=== PATIENT | male | born 1940 | race Caucasian/White ===

== ENCOUNTER → 2019-05-08 | Outpatient (CLI) | payer MEDICARE, BC ==
[~2019-05-08] MED LIST: AMIO200T4; APIX5TAB; DULO30CA49; FURO80TA3; LEVE500T6; METF-397; MTP100TCR
[2019-05-08 12:43] LABS: BASOPHILS % (AUTO) 0 % (0-10); EOSINOPHILS % (AUTO) 0 % (0-10); HEMATOCRIT 26 % (40-54); HEMOGLOBIN 8.3 G/DL (13.3-17.7); LYMPHOCYTES # (AUTO) 0.6 X 10^3 (1.0-4.0); LYMPHOCYTES % (AUTO) 7 % (12-44); MEAN CORPUSCULAR HEMOGLOBIN 22 PG (25-34); MEAN CORPUSCULAR HGB CONC 32 G/DL (32-36); MEAN CORPUSCULAR VOLUME 70 FL (80-99); MEAN PLATELET VOLUME 12.2 FL (7.4-10.4); MONOCYTES # (AUTO) 0.5 X 10^3 (0.0-1.0); MONOCYTES % (AUTO) 5 % (0-12); NEUTROPHILS # (AUTO) 7.7 X 10^3 (1.8-7.8); NEUTROPHILS % (AUTO) 88 % (42-75); PLATELET COUNT 285 10^3/uL (130-400); RED CELL DISTRIBUTION WIDTH 21.3 % (10.0-14.5); WHITE BLOOD COUNT 8.7 10^3/uL (4.3-11.0)
[2019-05-08 13:03] LABS: ALBUMIN 3.6 GM/DL (3.2-4.5); BILIRUBIN,TOTAL 2.4 MG/DL (0.1-1.0); CALCIUM 9.7 MG/DL (8.5-10.1); CREATININE SERUM 2.39 MG/DL (0.60-1.30); POTASSIUM 4.5 MMOL/L (3.6-5.0); TOTAL PROTEIN 7.2 GM/DL (6.4-8.2)
[2019-05-08 13:17] LABS: ANISOCYTOSIS MODERATE; HYPOCHROMASIA MARKED; LYMPHOCYTES % (MANUAL) 3 %; MONOCYTES % (MANUAL) 2 %; NEUTROPHILS % (MANUAL) 95 %; POLYCHROMASIA MODERATE; TARGET CELLS MODERATE
--- NOTE | 2019-05-08 13:33 | Diagnostic Imaging Report ---
PROCEDURE: CT head and CT cervical spine without contrast. TECHNIQUE: Multiple contiguous axial images were obtained through the brain and cervical spine without the use of intravenous contrast. Sagittal and coronal reformations through the cervical spine were then performed. Auto Exposure Controls were utilized during the CT exam to meet ALARA standards for radiation dose reduction. INDICATION: Fell, head and neck pain. COMPARISON: There are no prior studies available for comparison. CT HEAD: There is no mass, shift of the midline, or hemorrhage to suggest an acute intracranial abnormality. The normal tentorial blush is evident. The ventricles are not abnormally dilated. There is cortical atrophy present. The degree of atrophy is consistent with the patient's age. There is edema/inflammation and probable hematoma formation in the scalp overlying the left parietal bone just superior to the level of the lateral ventricles. This area measures approximately 0.9 x 2.8 cm. There is no sign of a skull fracture in this area. No other acute bony abnormality is noted. The orbits and sinuses were not visualized in their entirety. Where visualized, there is no acute abnormality. IMPRESSION: 1. There is soft tissue edema and hematoma formation in the scalp overlying the left parietal bone. There is no sign of a skull fracture nor is there any evidence for an acute intracranial abnormality. 2. By history, the patient is anticoagulated. If the patient's symptoms of headache persist, then a short-term (24-hour) follow-up CT head exam would be recommended for further evaluation. CT CERVICAL SPINE: The reconstructed sagittal images show straightening of the cervical spine. This may be secondary to muscle spasm and/or positioning. There is no fracture or acute bony abnormality identified. There is moderate degenerative disc and bony disease in the lower cervical spine. There is no sign of a high-grade central stenosis. There is no paraspinal mass identified. However, in the right neck along the lateral aspect of the neck, there is an asymmetric soft tissue density. This finding measures 2.3 x 3.6 x 6.8 cm in maximum transverse, AP, and longitudinal dimensions. The soft tissue density extends from the level of the epiglottis to the right supraclavicular region. The distal-most portion of the soft tissue density is near the dialysis catheter entry site in the right supraclavicular region. The dialysis catheters seems to be in good position. This soft tissue density could be secondary to hematoma formation. It would be unlikely that this is a neoplastic mass. Clinical follow-up is recommended. The lung apices are clear. IMPRESSION: 1. There is no evidence for an acute bony abnormality of the cervical spine. 2. The soft tissue density in the right neck is of uncertain etiology but suspicious for hematoma. The density is in close proximity to the entry site of the dialysis catheter on the right. The catheter itself seems to be in good position. Clinical follow-up is recommended. 3. These results were discussed with Kaylah Leggett APRN. Dictated by: Dictated on workstation # [id number]
== END ==
LOC: RAD 12:11
PROVIDERS: ATTEND Nurse Practitioner Family
DX: S00.03XA Contusion of scalp, initial encounter (principal); C61 Malignant neoplasm of prostate; I50.9 Heart failure, unspecified; N19 Unspecified kidney failure; W19.XXXA Unspecified fall, initial encounter; Z79.01 Long term (current) use of anticoagulants; Z95.828 Presence of other vascular implants and grafts
CPT/HCPCS: 36415; 70450; 72125; 80053; 84153; 85007; 85027

== ENCOUNTER 2019-05-10 09:48 | Emergency (ER) | payer MEDICARE, BC ==
[~2019-05-10] VITALS: Ht 175 cm; Wt 71.8 kg
[2019-05-10] MEDS ORDERED: fentaNYL INJECTION 100 MCG/2 ML AMP IVP ONE (10:30)
[2019-05-10] MEDS ORDERED: MTP100TCR (10:32)
[2019-05-10] MEDS ORDERED: FURO80TA3 (10:32)
[2019-05-10] MEDS ORDERED: LEVE500T6 (10:32)
[2019-05-10] MEDS ORDERED: DULO30CA49 (10:32)
[2019-05-10] MEDS ORDERED: APIX5TAB (10:32)
[2019-05-10] MEDS ORDERED: METF-397 (10:32)
[2019-05-10] MEDS ORDERED: AMIO200T4 (10:32)
[2019-05-10 10:45] LABS: BASOPHILS % (AUTO) 0 % (0-10); EOSINOPHILS % (AUTO) 0 % (0-10); HEMATOCRIT 25 % (40-54); LYMPHOCYTES # (AUTO) 0.5 X 10^3 (1.0-4.0); LYMPHOCYTES % (AUTO) 8 % (12-44); MEAN CORPUSCULAR HGB CONC 32 G/DL (32-36); MEAN CORPUSCULAR VOLUME 71 FL (80-99); MEAN PLATELET VOLUME 10.7 FL (7.4-10.4); MONOCYTES # (AUTO) 0.5 X 10^3 (0.0-1.0); MONOCYTES % (AUTO) 7 % (0-12); NEUTROPHILS # (AUTO) 5.6 X 10^3 (1.8-7.8); NEUTROPHILS % (AUTO) 85 % (42-75); PLATELET COUNT 253 10^3/uL (130-400); RED CELL DISTRIBUTION WIDTH 21.5 % (10.0-14.5); WHITE BLOOD COUNT 6.6 10^3/uL (4.3-11.0)
[2019-05-10 10:46] LABS: MEAN CORPUSCULAR HEMOGLOBIN 22 PG (25-34)
[2019-05-10 10:56] LABS: INR 2.1 (0.8-1.4); PROTHROMBIN TIME PATIENT 24.2 SEC (12.2-14.7)
[2019-05-10 11:04] LABS: ALBUMIN 3.5 GM/DL (3.2-4.5); BILIRUBIN,TOTAL 2.2 MG/DL (0.1-1.0); CALCIUM 9.5 MG/DL (8.5-10.1); CREATININE SERUM 2.4 MG/DL (0.60-1.30); MAGNESIUM 2.1 MG/DL (1.6-2.4); TOTAL PROTEIN 7.1 GM/DL (6.4-8.2)
[2019-05-10 11:11] LABS: BILIRUBIN,URINE NEGATIVE (NEGATIVE); CLARITY,URINE SL CLOUDY; COLOR,URINE YELLOW; GLUCOSE, URINE (UA) NEGATIVE (NEGATIVE); KETONES,URINE NEGATIVE (NEGATIVE); LEUKOCYTE ESTERASE ,URINE 1+ (NEGATIVE); NITRITE,URINE NEGATIVE (NEGATIVE); PROTEIN,URINE NEGATIVE (NEGATIVE)
--- NOTE | 2019-05-10 11:20 | NUR ---
PT REQUEST WALKER CATH TO BE REMOVED DUE TO DISCOMFORT. REPORTS HE WOULD PREFER TO CONTINUE TO SELF CATH. DR ROBERT. FOLY REMOVED. APROX 100 ML OF DARK YELLOW URINE COLLECTED.
[2019-05-10 11:21] LABS: BACTERIA,URINE LARGE /HPF; WBC,URINE 25-50 /HPF
--- NOTE | 2019-05-10 11:25 | Diagnostic Imaging Report ---
INDICATION: Leg edema. TECHNIQUE: Single view chest 11:07 a.m. CORRELATION STUDY: None FINDINGS: Right IJ dialysis catheter tip is over the right atrium. Left-sided AICD is present. There is cardiac enlargement with presence of pulmonary vascular congestion and perihilar edema. Prominent interstitial markings also favor probable edema. No consolidating infiltrate. Trace effusions. IMPRESSION: 1. Findings of congestive heart failure. Dictated by: Dictated on workstation # [id number]
[2019-05-10] MEDS ORDERED: LIDOCAINE 2% VISCOUS 15 ML UDC MM ONE (11:30)
[2019-05-10] MEDS ORDERED: cefTRIAXone FOR IV USE 1,000 MG in WATER (STERILE) FOR INJECTION 10 ML IV ONE (11:30)
[2019-05-10] MEDS ORDERED: FUROSEMIDE 40 MG/4 ML INJ (LASIX) IVP ONE (11:30)
--- NOTE | 2019-05-10 11:33 | ED General ---
General Chief Complaint: Lower Extremity Stated Complaint: PAIN IN BOTH LEGS Nursing Triage Note: PT PRESENTS TO ED IN FROM [facility] ACCOMPANIED BY DAUGHTER WITH COMPLAINTS OF INCREASED LEG SWELLING, AND BILATERAL THIGH PAIN. PT RECENTLY MOVED TO [place] TO [place] CLOSER TO HIS FAMILY. PT STOPPED DIALYSIS 2 WEEKS AGO AND HIS DR INCREASED HIS LASIX TO 80 MG WHICH HE HAS BEEN TAKING FOR 1 WEEK TO HELP WITH THE SWELLING. PT HAD HIS LEGS WRAPPED FOR SPECIALTY BOOTS YESTERDAY AND SINCE HIS THIGH PAIN HAS INCREASED. Nursing Sepsis Screen: No Definite Risk Source of Information: Patient, Family Exam Limitations: No Limitations History of Present Illness Date Seen by Provider: May 10, 2019 Time Seen by Provider: 10:20 Initial Comments This 78-year-old gentleman presents to the emergency room with complaints of bilateral leg pain, especially in the thighs. He had wraps placed by home health yesterday and pain has been escalating since then. Wraps were placed because he has significant lower extremity edema secondary to congestive heart failure and chronic kidney disease. He had weeping and ulcers develop as a result. He had been on dialysis while living in [place]. Dialysis was continued in [facility] after he had been admitted at [facility]. Dialysis was stopped about 3 weeks ago. He came to the [place] area to live with his family. He also had a recent fall and had a CT of the head and cervical spine performed on which was negative for acute injury. He appears short of breath with shallow respirations. There is erythema of the lower extremities, greater on the left, just proximal to his wraps. He is anticoagulated on Eliquis because of atrial fibrillation. Patient also reports hematuria with his straight cathetering over the past week. His Lasix dose was recently increased from 40 mg to 80 mg about a week ago, but he is having increased swelling despite this change. Allergies and Home Medications Allergies Coded Allergies: No Known Drug Allergies (Unverified , 05/10/19) Patient Home Medication List Home Medication List Reviewed: Yes Review of Systems Review of Systems Constitutional: no symptoms reported EENTM: no symptoms reported Respiratory: see HPI Cardiovascular: see HPI Gastrointestinal: no symptoms reported Genitourinary: see HPI Musculoskeletal: see HPI Skin: see HPI Psychiatric/Neurological: No Symptoms Reported Hematologic/Lymphatic: No Symptoms Reported Immunological/Allergic: no symptoms reported Past Qlbbirt-Hzyhlj-Coyzzi Hx Past Med/Social Hx: Reviewed Nursing Past Med/Soc Hx Patient Social History Alcohol Use: Past History Recreational Drug Use: No Smoking Status: Former Smoker Former Smoker, Quit: Apr 30, 1967 Recent Foreign Travel: No Contact w/Someone Who Travel: No Recent Infectious Disease Expo: No Recent Hopitalizations: Yes (admission at [facility] for fluid retention) Physical Abuse: No Sexual Abuse: No Mistreated: No Fear: No Past Medical History Surgeries: Yes Appendectomy, CABG, Coronary Stent, Dialysis, Nose Respiratory: Yes (CHF) Cardiac: Yes Atrial Fibrillation, Chronic Edema/Swelling, Coronary Artery Disease, High Cholesterol Neurological: Yes Neuropathy, Seizure Disorder Genitourinary: Yes Prostate Problems, Renal Failure, Dialysis Gastrointestinal: No Musculoskeletal: No Endocrine: Yes Diabetes, Non-Insulin dep HEENT: No Cancer: Yes Prostate What Type of Treatment Did You: Other Psychosocial: No Integumentary: No Physical Exam Vital Signs Vital Signs - First Documented 05/10/19 10:05 Temp 35.9 Pulse 74 Resp 20 B/P (MAP) 104/63 (77) Pulse Ox 100 Capillary Refill : Less Than 3 Seconds Height, Weight, BMI Height: '" Weight: lbs. oz. kg; 23.00 BMI Method: General Appearance: No Apparent Distress, WD/WN HEENT: PERRL/EOMI, Normal ENT Inspection Neck: Normal Inspection Respiratory: No Accessory Muscle Use, No Respiratory Distress, Crackles (bilateral bases), Decreased Breath Sounds, Other (decreased air movement) Cardiovascular: No Edema, No Murmur, Systolic Murmur Gastrointestinal: Normal Bowel Sounds, Non Tender, Soft Extremity: Other (marked edema of the legs up to the hips bilaterally. There is erythema noted especially distal to the left knee. He has a few shallow ulcerations on the anterior lower legs. Pedal pulses are not well palpated. 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 II-XII Norm as Tested Skin: Warm/Dry, Other (see above) Progress/Results/Core Measures Suspected Sepsis Recent Fever Within 48 Hours: No Infection Criteria Present: None New/Unexplained Altered Menta: No Sepsis Screen: No Definite Risk SIRS Temperature: Pulse: 74 Respiratory Rate: 20 Laboratory Tests 05/10/19 10:37: White Blood Count 6.6 Blood Pressure 104 /63 Mean: 77 Laboratory Tests 05/10/19 10:37: Creatinine 2.40H, INR Comment 2.1H, Platelet Count 253, Total Bilirubin 2.2H Results/Orders Lab Results Laboratory Tests Test 05/10/19 10:37 05/10/19 11:01 Range/Units White Blood Count 6.6 4.3-11.0 10^3/uL Red Blood Count 3.56 L 4.35-5.85 10^6/uL Hemoglobin 8.0 L 13.3-17.7 G/DL Hematocrit 25 L 40-54 % Mean Corpuscular Volume 71 L 80-99 FL Mean Corpuscular Hemoglobin 22 L 25-34 PG Mean Corpuscular Hemoglobin Concent 32 32-36 G/DL Red Cell Distribution Width 21.5 H 10.0-14.5 % Platelet Count 253 130-400 10^3/uL Mean Platelet Volume 10.7 H 7.4-10.4 FL Neutrophils (%) (Auto) 85 H 42-75 % Lymphocytes (%) (Auto) 8 L 12-44 % Monocytes (%) (Auto) 7 0-12 % Eosinophils (%) (Auto) 0 0-10 % Basophils (%) (Auto) 0 0-10 % Neutrophils # (Auto) 5.6 1.8-7.8 X 10^3 Lymphocytes # (Auto) 0.5 L 1.0-4.0 X 10^3 Monocytes # (Auto) 0.5 0.0-1.0 X 10^3 Eosinophils # (Auto) 0.0 0.0-0.3 10^3/uL Basophils # (Auto) 0.0 0.0-0.1 10^3/uL Prothrombin Time 24.2 H 12.2-14.7 SEC INR Comment 2.1 H 0.8-1.4 Activated Partial Thromboplast Time 59 H 24-35 SEC Sodium Level 136 135-145 MMOL/L Potassium Level 4.0 3.6-5.0 MMOL/L Chloride Level 93 L 98-107 MMOL/L Carbon Dioxide Level 27 21-32 MMOL/L Anion Gap 16 H 5-14 MMOL/L Blood Urea Nitrogen 73 H 7-18 MG/DL Creatinine 2.40 H 0.60-1.30 MG/DL Estimat Glomerular Filtration Rate 26 BUN/Creatinine Ratio 30 Glucose Level 144 H 70-105 MG/DL Calcium Level 9.5 8.5-10.1 MG/DL Corrected Calcium 9.9 8.5-10.1 MG/DL Magnesium Level 2.1 1.6-2.4 MG/DL Total Bilirubin 2.2 H 0.1-1.0 MG/DL Aspartate Amino Transf (AST/SGOT) 38 H 5-34 U/L Alanine Aminotransferase (ALT/SGPT) 36 0-55 U/L Alkaline Phosphatase 167 H 40-136 U/L C-Reactive Protein High Sensitivity 10.79 H 0.00-0.50 MG/DL B-Type Natriuretic Peptide 2682.9 H <100.0 PG/ML Total Protein 7.1 6.4-8.2 GM/DL Albumin 3.5 3.2-4.5 GM/DL Urine Color YELLOW Urine Clarity SL CLOUDY Urine pH 6.0 5-9 Urine Specific [place] 1.010 L 1.016-1.022 Urine Protein NEGATIVE NEGATIVE Urine Glucose (UA) NEGATIVE NEGATIVE Urine Ketones NEGATIVE NEGATIVE Urine Nitrite NEGATIVE NEGATIVE Urine Bilirubin NEGATIVE NEGATIVE Urine Urobilinogen 4.0 < = 1.0 MG/DL Urine Leukocyte Esterase 1+ H NEGATIVE Urine RBC (Auto) 3+ H NEGATIVE Urine RBC 5-10 H /HPF Urine WBC 25-50 H /HPF Urine Crystals NONE /LPF Urine Bacteria LARGE H /HPF Urine Casts NONE /LPF Urine Mucus NEGATIVE /LPF Urine Culture Indicated YES My Orders Orders - MARLA LOZA MD BNP (05/10/19 10:30) Cbc With Automated Diff (05/10/19 10:30) Comprehensive Metabolic Panel (05/10/19 10:30) Hs C Reactive Protein (05/10/19 10:30) Magnesium (05/10/19 10:30) Protime With Inr (05/10/19 10:30) Partial Thromboplastin Time (05/10/19 10:30) Ua Culture If Indicated (05/10/19 10:30) Ed Iv/Invasive Line Start (05/10/19 10:30) Chest 1 View, Ap/Pa Only (05/10/19 10:30) Fentanyl Injection (Sublimaze Injection (05/10/19 10:30) Varner Cath (05/10/19 10:46) Lidocaine 2% Viscous 15 Ml (Xylocaine Vi (05/10/19 11:30) Urine Culture (05/10/19 11:01) Ceftriaxone For Iv Use (Rocephin For I (05/10/19 11:30) Furosemide Injection (Lasix Injection) (05/10/19 11:30) Lorazepam Injection (Ativan Injection) (05/10/19 12:00) Medications Given in ED Current Medications Medications Dose Ordered Sig/Danielle Route Start Time Stop Time Status Last Admin Dose Admin Ceftriaxone Sodium 1000 mg/ Sterile Water 10 ml @ 200 mls/hr ONCE ONCE IV 05/10/19 11:30 05/10/19 11:32 DC 05/10/19 11:49 200 MLS/HR Fentanyl Citrate 50 mcg ONCE ONCE IVP 05/10/19 10:30 05/10/19 10:32 DC 05/10/19 10:41 50 MCG Furosemide 80 mg ONCE ONCE IVP 05/10/19 11:30 05/10/19 11:31 DC 05/10/19 11:50 80 MG Lorazepam 0.25 mg ONCE ONCE IVP 05/10/19 12:00 05/10/19 12:01 DC 05/10/19 12:10 0.25 MG Vital Signs/I&O 05/10/19 05/10/19 10:05 14:53 Temp 35.9 Pulse 74 77 Resp 20 18 B/P (MAP) 104/63 (77) 113/72 Pulse Ox 100 96 Capillary Refill : Less Than 3 Seconds Blood Pressure Mean: 77 Progress Note #1: Time: 12:44 Progress Note Patient has notable signs of heart failure including elevated BNP, congestion on chest x-ray, and marked lower extremity edema. Lasix 80 mg has been given for initial treatment. A Varner catheter was placed but patient did not tolerate the catheter due to pain. He insisted to be removed. He would rather straight catheter. Urinalysis suggested urinary tract infection. Rocephin is being given for initial treatment. I also suspect he has some cellulitis of the lower extremities. Cellulitis is also appropriate for treatment of cellulitis. Patient developed some significant anxiety and requested something to help calm him. Ativan 0.25 mg IV was administered which eliminated his anxiety. I discussed options with the patient and his family. Although we could admit to [facility] in [place], I feel it would be more appropriate for him to be admitted at a facility with nephrology services and dialysis if necessary given his recent history of dialysis and the delicate balance between heart failure and renal failure in his present state. If admitted at [facility], there would be high likelihood he would eventually need transfer to a tertiary care facility. After this conversation, patient, family, and I all agree he would be best served at a tertiary care facility. They've had good experiences with [facility] in [place] and would like to be transferred there. Progress Note #2: Time: 13:34 Progress Note After multiple self catheter bladder evacuations he eliminated about 300 mL of urine. Progress Note #3: Progress Note Patient voided a proximally 700 mL prior to dismissal. Diagnostic Imaging Diagonstic Imaging: Xray Plain Films/CT/US/NM/MRI: chest Comments Chest x-ray viewed by me and report reviewed. See report below: NAME: MARGARITO CHANDRA [facility] REC#: [id number] PT STATUS: REG ER : 1940 PHYSICIAN: MARLA LOZA MD ADMIT DATE: 05/10/19/ER Draft Date of Exam:05/10/19 CHEST 1 VIEW, AP/PA ONLY INDICATION: Leg edema. TECHNIQUE: Single view chest 11:07 a.m. CORRELATION STUDY: None FINDINGS: Right IJ dialysis catheter tip is over the right atrium. Left-sided AICD is present. There is cardiac enlargement with presence of pulmonary vascular congestion and perihilar edema. Prominent interstitial markings also favor probable edema. No consolidating infiltrate. Trace effusions. IMPRESSION: 1. Findings of congestive heart failure. Dictated on workstation # [id number] Dict: 05/10/19 1122 Trans: 05/10/19 1124 [facility] [id number] Interpreted by: MELANIA GUEVARA DO Departure Impression Primary Impression: Acute on chronic congestive heart failure Qualified Codes: I50.9 - Heart failure, unspecified Additional Impressions: Chronic kidney disease Qualified Codes: N18.9 - Chronic kidney disease, unspecified Urinary tract infection Qualified Codes: N39.0 - Urinary tract infection, site not specified; R31.9 - Hematuria, unspecified Cellulitis Qualified Codes: L03.119 - Cellulitis of unspecified part of limb Anemia Qualified Codes: D64.9 - Anemia, unspecified Anxiety Disposition: 02 XFER SHT-TRM HOSP Condition: Improved Transfer Transfer Reason: Exceeds level of care Time Spoke to Accepting Phy: 12:43 Transfer Progress Notes Transfer graciously accepted by Dr. Hartley at [facility]. Transfer Time: 14:56 Transfer Facility: [facility] Method of Transfer: EMS Departure-Patient Inst. Referrals: RASHMI MURDOCK MD (PCP/Family) Primary Care Physician Copy Copies To 1: RASHMI MURDOCK MD, JOSHUA T MD May 10, 2019 11:33
--- NOTE | 2019-05-10 11:40 | NUR ---
PT SELF STRAIGHT CATHS AT THIS TIME. APROX 35 ML OF RUDY COLORED URINE COLLECTED.
[2019-05-10] MEDS ORDERED: LORazepam INJ 2 MG/ML (ATIVAN) VIAL IVP ONE (12:00)
--- NOTE | 2019-05-10 12:45 | NUR ---
PT SELF STRAIGHT CATHED AT THIS TIME. 50 ML OF RUDY COLORED URINE COLLECTED.
--- NOTE | 2019-05-10 13:21 | NUR ---
PT SELF STRAIGHT CATHED AT THIS TIME. 235 ML OF RUDY COLORED URINE COLLECTED.
--- NOTE | 2019-05-10 14:43 | NUR ---
PT SELF CATHED AT THIS TIME. 280ML OF DARK YELLOW URINE COLLECTED.
[2019-05-10 14:53] VITALS: BP 113/72
== END 2019-05-10 14:56 | disposition short-term general hospital (02) ==
LOC: EDUNIT# 09:48 → ER 09:49
DX: I50.9 Heart failure, unspecified (principal); E11.22 Type 2 diabetes mellitus with diabetic chronic kidney disease; N18.9 Chronic kidney disease, unspecified; N39.0 Urinary tract infection, site not specified; L03.116 Cellulitis of left lower limb; D64.9 Anemia, unspecified; F41.9 Anxiety disorder, unspecified; I48.91 Unspecified atrial fibrillation; Z79.01 Long term (current) use of anticoagulants; Z87.891 Personal history of nicotine dependence; Z90.49 Acquired absence of other specified parts of digestive tract; Z95.5 Presence of coronary angioplasty implant and graft; Z95.1 Presence of aortocoronary bypass graft; Z99.2 Dependence on renal dialysis; Z85.46 Personal history of malignant neoplasm of prostate
CPT/HCPCS: 36415; 51702; 71045; 80053; 81000; 83735; 83880; 85025; 85610; 85730; 86141; 87077; 87088; 87184; 87186

== ENCOUNTER 2019-06-12 08:00 | Outpatient (RCR) | payer MEDICARE, BC ==
[2019-06-11 16:07] LABS: HEMOGLOBIN 6.6 G/DL (13.3-17.7)
[2019-06-12] VITALS (10 sets, daily range): BP systolic 72–95; BP diastolic 46–59
[~2019-06-12] VITALS: Ht 154 cm; Wt 71.8 kg
[2019-06-12] MEDS ORDERED: ACETAMINOPHEN 500 MG TAB (TYLENOL) PO ONE (08:15)
[2019-06-12] MEDS ORDERED: diphenhydrAMINE 50 MG/ML INJ (BENADRYL) IV ONE (08:15)
[2019-06-12] MEDS ORDERED: FUROSEMIDE 40 MG/4 ML INJ (LASIX) IV NR (08:15)
[2019-06-12] MEDS ORDERED: NS IV 500 ML 500 ML IV NR (08:15)
--- NOTE | 2019-06-12 09:20 | NUR ---
PT. WAS WALKING ALONGSIDE THIS NURSE TO GO USE THE RESTROOM WHEN HIS KNEES BUCKLED AND HE WENT DOWN ON HIS SIDE GENTLY TO THE FLOOR ON THE SIDE OF HIS LEGS & HIP. THIS NURSE ALONG WITH OTHERS GOT THE PT. BACK UP AND INTO A WHEELCHAIR AND PROCEEDED TO TAKE HIM BACK TO HIS ROOM WHERE THIS NURSE DID A SKIN ASSESSMENT AND VITALS. HIS DAUGHTERS WERE PRESENT SO NO PHONE CALLS WERE NECESSARY TO FAMILY. DR. MURDOCK'S OFFICE WILL BE NOTIFIED.
--- NOTE | 2019-06-12 10:00 | NUR ---
DR. MURDOCK'S OFFICE NOTIFIED OF PT.'S FALL WELL PT.'S BLOOD IN URINE AND THAT PT. WAS TAKEN OFF HIS ELIQUIS OF YESTERDAY, SO HE DIDN'T TAKE IT THIS AM, TALKED TO CAROLINE CARDOZO. CAS STATED SHE WILL SEND DR. DEVI'S OFFICE AN UPDATE ABOUT PT.'S URINE BEING LIU RED. PT.'S VITALS ARE : 36.0 70 18 98/53 100% ON 3L N/C, PT. STATES HE FEELS MUCH BETTER, FIRST UNIT OF BLOOD HAS BEEN GOING FOR ABOUT 30 MIN. NOW.
[2019-06-12 15:02] LABS: HEMOGLOBIN 6.9 G/DL (13.3-17.7)
[2019-06-12 15:13] LABS: HEMOGLOBIN 7.5 G/DL (13.3-17.7)
[2019-06-12] MEDS ORDERED: FUROSEMIDE 40 MG/4 ML INJ (LASIX) IVP ONE ×2 (16:15→17:15)
--- NOTE | 2019-06-12 16:55 | NUR ---
TRANSPORTED PATIENT TO [address] [place] [address] VIA WHEELCHAIR, ACCOMPANIED BY PATIENT'S DAUGHTER AND STAFF. BEDSIDE REPORT GIVEN TO VADIM RN AND RANDOLPH WONG.
--- NOTE | 2019-06-12 16:58 | NUR ---
pt arrived to floor with family and RN via wheelchair. 3rd unit PRBC's infusing, pt denies needs at this time, will continue to monitor
[2019-06-12] MEDS ORDERED: NS IV 500 ML 500 ML IV ONE (17:15)
--- NOTE | 2019-06-12 17:56 | NUR ---
PT TOLERATING INFUSING WITHOUT DIFFICULTY, WILL CONTINUE TO MONITOR
--- NOTE | 2019-06-12 18:22 | NUR ---
UNIT OF PRBC'S COMPLETE
[2019-06-12 18:28] LABS: HEMOGLOBIN 8.6 G/DL (13.3-17.7)
--- NOTE | 2019-06-12 18:35 | NUR ---
H&H RESULTS GIVEN TO DR MURDOCK VIA TELPHONE
== END 2019-06-12 21:00 | disposition home or self-care (01) ==
LOC: LAB 08:00 → 4TH 18:13 → LAB 21:00
PROVIDERS: ATTEND Nurse Practitioner Family
DX: D64.9 Anemia, unspecified (principal)
CPT/HCPCS: 36415; 36430; 85014; 85018; 86850; 86900; 86901; 86920

== ENCOUNTER → 2019-06-13 | Outpatient (CLI) | payer MEDICARE, BC ==
[2019-06-13 11:50] LABS: HEMOGLOBIN 8.3 G/DL (13.3-17.7)
== END ==
LOC: LAB 11:22
PROVIDERS: ATTEND Nurse Practitioner Family
DX: Z01.89 Encounter for other specified special examinations (principal)
CPT/HCPCS: 36415; 85014; 85018

== ENCOUNTER → 2019-06-13 | Outpatient (CLI) | payer MEDICARE, BC ==
--- NOTE | 2019-06-13 12:33 | Diagnostic Imaging Report ---
PROCEDURE: CT abdomen and pelvis without contrast. TECHNIQUE: Multiple contiguous axial images were obtained through the abdomen and pelvis without the use of intravenous contrast. Auto Exposure Controls were utilized during the CT exam to meet ALARA standards for radiation dose reduction. INDICATION: Prostate cancer, followup. No prior studies are available for comparison. The lung bases are clear. No discrete liver mass is detected. Gallbladder surgically absent. No biliary duct dilatation is seen. Pancreas and spleen are unremarkable. No adrenal mass is detected. Right kidney contains a low density in the upper pole measuring 2.3 cm, likely a cyst. No calculi or hydronephrosis is identified. 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 No retroperitoneal hemorrhage is detected. No central retroperitoneal lymphadenopathy is seen. Small and large bowel loops are normal caliber. There is no free fluid identified in the abdomen or pelvis. There appears to be a large lobulated heterogeneous density in the bladder base measuring 6.1 x 5.4 cm. Prostate contains radiation seeds and appears normal in size. No pelvic lymphadenopathy is identified. Bony structures are unremarkable. IMPRESSION: 1. Lobulated bladder mass. Cystoscopy is recommended for further evaluation. 2. No other significant abnormality is detected. Dictated by: Dictated on workstation # [id number]
--- NOTE | 2019-06-13 15:19 | Diagnostic Imaging Report ---
INDICATION: Prostate cancer. COMPARISON: I have no previous for direct comparison. Study interpreted in correlation with CT abdomen performed 06/13/2019. TECHNIQUE: The patient received 27 mCi intravenous dose of technetium-99m MDP via the right antecubital. After 3 hours, whole-body planar imaging performed. FINDINGS: There are adjacent left ribs distally showing focal punctate abnormal uptake. Their consecutive nature and their focality favor uptake from healing rib fractures. Remaining ribs, sternum, and manubrium are unremarkable. The long bones are unremarkable aside from mild degenerative pattern of uptake. The calvarium is unremarkable. Soft tissue uptake and excretion by urinary tracts is unremarkable. A subtle photopenic defect in the right renal upper pole corresponding to a cyst seen at CT. IMPRESSION: Two consecutive ribs distally on the left show focal punctate elevated uptake. This pattern is most often attributable to healing rib fractures and post-traumatic uptake, particularly given the otherwise normal exam. This is above the field of view of the correlative CT abdomen. Perhaps a chest CT may be useful to confirm a benign explanation for this finding in an otherwise normal study. Dictated by: Dictated on workstation # [id number]
== END ==
LOC: CARD 11:19
PROVIDERS: ATTEND Urology
DX: C61 Malignant neoplasm of prostate (principal); N32.9 Bladder disorder, unspecified
CPT/HCPCS: 74176; 78306

== ENCOUNTER 2019-06-14 17:56 | Inpatient (IN) | payer MEDICARE, BC ==
[~2019-06-14] VITALS: Ht 175.3 cm; Wt 57.4 kg
[2019-06-14 18:29] LABS: BASOPHILS % (AUTO) 0 % (0-10); EOSINOPHILS % (AUTO) 0 % (0-10); LYMPHOCYTES # (AUTO) 0.5 X 10^3 (1.0-4.0); LYMPHOCYTES % (AUTO) 10 % (12-44); MEAN CORPUSCULAR HEMOGLOBIN 25 PG (25-34); MEAN CORPUSCULAR HGB CONC 32 G/DL (32-36); MEAN CORPUSCULAR VOLUME 78 FL (80-99); MEAN PLATELET VOLUME 11.2 FL (7.4-10.4); MONOCYTES # (AUTO) 0.5 X 10^3 (0.0-1.0); MONOCYTES % (AUTO) 10 % (0-12); NEUTROPHILS # (AUTO) 3.8 X 10^3 (1.8-7.8); NEUTROPHILS % (AUTO) 79 % (42-75); PLATELET COUNT 180 10^3/uL (130-400); RED CELL DISTRIBUTION WIDTH 20.6 % (10.0-14.5); WHITE BLOOD COUNT 4.8 10^3/uL (4.3-11.0)
[2019-06-14 18:32] LABS: HEMATOCRIT 18 % (40-54); HEMOGLOBIN 5.8 G/DL (13.3-17.7)
[2019-06-14 18:48] LABS: ALBUMIN 3.1 GM/DL (3.2-4.5); CALCIUM 8.8 MG/DL (8.5-10.1); CREATININE SERUM 2.11 MG/DL (0.60-1.30); POTASSIUM 3.7 MMOL/L (3.6-5.0); TOTAL PROTEIN 5.3 GM/DL (6.4-8.2)
--- NOTE | 2019-06-14 18:59 | NUR ---
REPORT AND CARE OF PATIENT TO TIMOTHY.
--- NOTE | 2019-06-14 19:04 | ED General ---
General Chief Complaint: - Urinary Stated Complaint: WEAKNESS Nursing Triage Note: TO ROOM 07 VIA WC. COMPLAINS OF PASSING LARGE AMOUNTS OF BLOOD THRU URINE STARTING AT 0300. HAD TO HAVE A BLOOD TRASFUSION A COUPLE OF DAYS AGO AND WAS TOLD BY MATHIEU IF HE HAD PROBLEMS OVER THE WEEKEND TO COME TO THE ER. Nursing Sepsis Screen: No Definite Risk Source of Information: Patient Exam Limitations: No Limitations History of Present Illness Date Seen by Provider: Jun 14, 2019 Time Seen by Provider: 18:00 Initial Comments Here with report of increasing weakness today and passing a large amount of blood. Urine. He did have transfusion of 3 units 2 days ago due to hemoglobin of 6.6. It did go up to 8.3. He did have a strenuous day yesterday including bone scan and CT abdomen and pelvis for concerns of the bleeding. He is currently on antibiotic for urinary tract infection. Does have history of prostate cancer. States since transfusion 2 days ago he has had dark, bloody urine as well as some debris. He does report that he is having more difficulty with self catheter and that the catheter does not go when as far. Does report some weakness. Denies chest pain, breathing problems, fever or other significant pain. Does report some constipation. Timing/Duration: 3-4 Days Severity: Moderate Associated Systoms: No Cough, No Fever/Chills, No Nausea/Vomiting, No Shortness of Air; Weakness Allergies and Home Medications Allergies Coded Allergies: No Known Drug Allergies (Unverified , 05/10/19) Patient Home Medication List Home Medication List Reviewed: Yes Review of Systems Review of Systems Constitutional: see HPI EENTM: no symptoms reported Respiratory: dyspnea on exertion; No hemoptysis Cardiovascular: No chest pain, No edema Gastrointestinal: abdominal pain, constipation; No nausea, No vomiting Genitourinary: hematuria; No pain Musculoskeletal: no symptoms reported Skin: no symptoms reported Psychiatric/Neurological: No Symptoms Reported All Other Systems Reviewed Negative Unless Noted: Yes Past Itdklrm-Tiztnn-Rpwyah Hx Past Med/Social Hx: Reviewed Nursing Past Med/Soc Hx Patient Social History Alcohol Use: Denies Use Recreational Drug Use: No Smoking Status: Former Smoker Former Smoker, Quit: Apr 30, 1967 Recent Foreign Travel: No Contact w/Someone Who Travel: No Recent Infectious Disease Expo: No Recent Hopitalizations: No (BLOOD TRANSFUSINON) Past Medical History Surgeries: Yes Appendectomy, CABG, Coronary Stent, Dialysis, Nose Respiratory: Yes (CHF) Cardiac: Yes Atrial Fibrillation, Chronic Edema/Swelling, Coronary Artery Disease, High Cholesterol Neurological: Yes Neuropathy, Seizure Disorder Genitourinary: Yes Prostate Problems, Renal Failure, Dialysis Gastrointestinal: No Musculoskeletal: No Endocrine: Yes Diabetes, Non-Insulin dep HEENT: No Cancer: Yes Prostate What Type of Treatment Did You: Radiation Psychosocial: No Integumentary: No Family Medical History Reviewed Nursing Family Hx No Pertinent Family Hx Physical Exam Vital Signs Vital Signs - First Documented 06/14/19 18:00 Temp 36.7 Pulse 70 Resp 16 B/P (MAP) 95/52 (66) Pulse Ox 100 O2 Delivery Room Air Capillary Refill : Less Than 3 Seconds Height, Weight, BMI Height: '" Weight: lbs. oz. kg; 17.00 BMI Method: General Appearance: No Apparent Distress, Thin HEENT: Normal ENT Inspection, Pharynx Normal Neck: Full Range of Motion, Normal Inspection, Non Tender, Supple Respiratory: Lungs Clear, Normal Breath Sounds Cardiovascular: Regular Rate, Rhythm, No Murmur Gastrointestinal: Soft; No Distended, No Guarding; Tenderness (mild suprapubic) Back: Normal Inspection, No CVA Tenderness, No Vertebral Tenderness Extremity: Normal Range of Motion, Non Tender Neurologic/Psychiatric: Alert, Oriented x3 Skin: Warm/Dry, Erythema (scattered about arms and legs.), Other (healing lesion to the right lower extremity secondary to stasis blisters.) Progress/Results/Core Measures Suspected Sepsis Recent Fever Within 48 Hours: No Infection Criteria Present: Suspected New Infection New/Unexplained Altered Menta: No Sepsis Screen: No Definite Risk SIRS Temperature: Pulse: 70 Respiratory Rate: 16 Laboratory Tests 06/14/19 18:19: White Blood Count 4.8 Blood Pressure 95 /52 Mean: 66 Laboratory Tests 06/14/19 18:19: Creatinine 2.11H, Platelet Count 180, Total Bilirubin 1.0 Results/Orders Lab Results Laboratory Tests Test 06/14/19 18:19 Range/Units White Blood Count 4.8 4.3-11.0 10^3/uL Red Blood Count 2.30 L 4.35-5.85 10^6/uL Hemoglobin 5.8 #*L 13.3-17.7 G/DL Hematocrit 18 *L 40-54 % Mean Corpuscular Volume 78 L 80-99 FL Mean Corpuscular Hemoglobin 25 25-34 PG Mean Corpuscular Hemoglobin Concent 32 32-36 G/DL Red Cell Distribution Width 20.6 H 10.0-14.5 % Platelet Count 180 130-400 10^3/uL Mean Platelet Volume 11.2 H 7.4-10.4 FL Neutrophils (%) (Auto) 79 H 42-75 % Lymphocytes (%) (Auto) 10 L 12-44 % Monocytes (%) (Auto) 10 0-12 % Eosinophils (%) (Auto) 0 0-10 % Basophils (%) (Auto) 0 0-10 % Neutrophils # (Auto) 3.8 1.8-7.8 X 10^3 Lymphocytes # (Auto) 0.5 L 1.0-4.0 X 10^3 Monocytes # (Auto) 0.5 0.0-1.0 X 10^3 Eosinophils # (Auto) 0.0 0.0-0.3 10^3/uL Basophils # (Auto) 0.0 0.0-0.1 10^3/uL Sodium Level 134 L 135-145 MMOL/L Potassium Level 3.7 3.6-5.0 MMOL/L Chloride Level 97 L 98-107 MMOL/L Carbon Dioxide Level 31 21-32 MMOL/L Anion Gap 6 5-14 MMOL/L Blood Urea Nitrogen 36 H 7-18 MG/DL Creatinine 2.11 H 0.60-1.30 MG/DL Estimat Glomerular Filtration Rate 31 BUN/Creatinine Ratio 17 Glucose Level 126 H 70-105 MG/DL Calcium Level 8.8 8.5-10.1 MG/DL Corrected Calcium 9.5 8.5-10.1 MG/DL Total Bilirubin 1.0 0.1-1.0 MG/DL Aspartate Amino Transf (AST/SGOT) 31 5-34 U/L Alanine Aminotransferase (ALT/SGPT) 34 0-55 U/L Alkaline Phosphatase 81 40-136 U/L Total Protein 5.3 L 6.4-8.2 GM/DL Albumin 3.1 L 3.2-4.5 GM/DL My Orders Orders - LETITIA ALVES MD Continuous Bladder Irrigation (06/14/19 19:10) Catheter(Urinary) Insert & Ass 15 (06/14/19 19:10) Meropenem (Merrem 500 Mg) (06/14/19 19:30) Vital Signs/I&O 06/14/19 18:00 Temp 36.7 Pulse 70 Resp 16 B/P (MAP) 95/52 (66) Pulse Ox 100 O2 Delivery Room Air Capillary Refill : Less Than 3 Seconds Blood Pressure Mean: 66 Progress Note : Progress Note Seen and evaluated. IV, labs, type and cross for 2 units ordered. I have reviewed previous visit data as well as CT abdomen and pelvis and bone scan done yesterday. CT abdomen pelvis does have findings concerning for bladder cancer and bladder mass with recommendation for cystoscopy. Bone scan questions two healing rib fractures. These findings were discussed with the patient. Hemoglobin noted to be 5.8 today which is less than 's initial check and certainly markedly different than after transfusion of 3 units accomplished that day (2 days ago). 1909: I did discuss the case with Dr. Broussard. We will obviously transfuse 2 units now and also type and cross for 2 more units to hold. We will initiate continuous bladder irrigation and initiate transfusion. Patient is on a variety of meds but I will order his middle drain and Keppra for tonight with the rest for primary care provider to review. 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 Has been taking outpatient Bactrim but would be preference to changed IV. I do believe bleeding is more related to a bladder mass then infection but we will continue the treatment. He has completed 7 day course thus far with a few more days to go. I did discuss all of the findings concerns with the patient and family verbalize understanding. They were notified of the bladder mass concern. I did discuss with them regarding CODE STATUS. At this point, patient would like to be full code. I did discuss that this could be disadvantageous to him due to comfort after compressions and also due to concerns of intubation but he would still like to pursue that at this point. Further discussion per primary. Admit, inpatient status. Patient and family agree with plan. Departure Communication (Admissions) Time/Spoke to Admitting Phy: 19:10 Impression Primary Impression: Hematuria Qualified Codes: R31.9 - Hematuria, unspecified Additional Impressions: Anemia due to blood loss, acute Bladder mass Disposition: ADMITTED INPATIENT Condition: Stable Admissions Decision to Admit Reason: Admit from ER (General) Decision to Admit/Date: Jun 14, 2019 Time/Decision to Admit Time: 19:10 Departure-Patient Inst. Referrals: RASHMI BROUSSARD MD (PCP/Family) Primary Care Physician LETITIA ALVES MD Jun 14, 2019 19:04
[2019-06-14] MEDS ORDERED: LIDOCAINE UROJET 2% GEL 10 ML PKG ONE ×2 (19:24→21:27)
[2019-06-14] MEDS ORDERED: NS IV 500 ML 500 ML ONE (19:25)
[2019-06-14] MEDS ORDERED: MEROPENEM 500 MG in WATER (STERILE) FOR INJECTION 10 ML IV ONE (19:30)
[2019-06-14 19:42] VITALS: BP 96/51
[2019-06-14 20:00] VITALS: BP 98/51
[2019-06-14 20:15] VITALS: BP 98/48
--- NOTE | 2019-06-14 20:23 | NUR ---
TELEPHONE REPORT RECEIVED FROM RANDOLPH AGUIRRE FROM ED AT THIS TIME.
--- NOTE | 2019-06-14 22:00 | NUR ---
180ML OF NS MANUALLY IRRIGATED INTO BLADDER. RETURNED 800ML OF BLOODY URINE AND CLOTS
[2019-06-14 22:25] VITALS: BP 100/58
--- NOTE | 2019-06-14 22:25 | NUR ---
MARGARITO CHANDRA admitted to room 427-1, with an admitting diagnosis of HEMATURIA, on 06/14/19 from [facility], accompanied by STAFF AND FAMILY.MARGARITO CHANDRA introduced to surroundings, call light, bed controls, phone, TV, temperature control, lights, meal times, smoking policy, visitor policy, side rail policy, bathrooms and showers. Patient Rights given to patient in the handbook. MARGARITO CHANDRA verbalizes understanding that [facility] is not responsible for the loss or damage to any personal effects or valuables that are kept in the patients posession during their hospitalization. MARGARITO CHANDRA verbalizes understanding of Interdisciplinary Patient Education. Patient and/or family were informed about the Rapid Response Team and its purpose.
[2019-06-14 22:31] LABS: BILIRUBIN,URINE 2+ (NEGATIVE); CLARITY,URINE CLOUDY; COLOR,URINE RED; GLUCOSE, URINE (UA) 3+ (NEGATIVE); KETONES,URINE NEGATIVE (NEGATIVE); LEUKOCYTE ESTERASE ,URINE 2+ (NEGATIVE); NITRITE,URINE POSITIVE (NEGATIVE); PH,URINE 6.5 (5-9); PROTEIN,URINE 2+ (NEGATIVE)
[2019-06-14 22:35] VITALS: BP 100/58
[2019-06-14 22:39] LABS: BACTERIA,URINE MODERATE /HPF; RBC,URINE TNTC /HPF
[2019-06-14] MEDS ORDERED: ONDANSETRON 4 MG/2 ML (SDV) Z0FRAN IV PRN (23:15)
[2019-06-14] MEDS ORDERED: NS IV 1000 ML 1,000 ML IV SCH (23:15)
[2019-06-14] MEDS ORDERED: FUROSEMIDE 40 MG/4 ML INJ (LASIX) IV ONE (23:30)
[2019-06-15] VITALS (7 sets, daily range): BP systolic 90–100; BP diastolic 40–62
[2019-06-15] MEDS: MEROPENEM 500 MG/SWFI 10 ML IV PUSH IV SCH ×6 (00:07→11:45)
[2019-06-15] MEDS: LEVETIRACETAM 500 MG (KEPPRA) TAB PO SCH ×2 (00:17→09:13)
[2019-06-15 06:26] LABS: BASOPHILS % (AUTO) 0 % (0-10); EOSINOPHILS % (AUTO) 0 % (0-10); HEMATOCRIT 25 % (40-54); LYMPHOCYTES # (AUTO) 0.5 X 10^3 (1.0-4.0); LYMPHOCYTES % (AUTO) 8 % (12-44); MEAN CORPUSCULAR HEMOGLOBIN 26 PG (25-34); MEAN CORPUSCULAR HGB CONC 33 G/DL (32-36); MEAN CORPUSCULAR VOLUME 79 FL (80-99); MEAN PLATELET VOLUME 11.5 FL (7.4-10.4); MONOCYTES # (AUTO) 0.6 X 10^3 (0.0-1.0); MONOCYTES % (AUTO) 10 % (0-12); NEUTROPHILS % (AUTO) 82 % (42-75); PLATELET COUNT 160 10^3/uL (130-400); RED CELL DISTRIBUTION WIDTH 20.6 % (10.0-14.5); WHITE BLOOD COUNT 6.1 10^3/uL (4.3-11.0)
[2019-06-15 06:57] LABS: ALBUMIN 3.2 GM/DL (3.2-4.5); BILIRUBIN,TOTAL 1.8 MG/DL (0.1-1.0); CALCIUM 8.9 MG/DL (8.5-10.1); CREATININE SERUM 1.82 MG/DL (0.60-1.30); POTASSIUM 3.9 MMOL/L (3.6-5.0); TOTAL PROTEIN 5.5 GM/DL (6.4-8.2)
[2019-06-15 07:46] LABS: HYPOCHROMASIA SLIGHT; LYMPHOCYTES % (MANUAL) 8 %; MONOCYTES % (MANUAL) 6 %; NEUTROPHILS % (MANUAL) 86 %; NUCLEATED RED BLOOD CELLS 4; POLYCHROMASIA MODERATE
[2019-06-15 07:47] LABS: ANISOCYTOSIS MODERATE; MICROCYTOSIS SLIGHT; POIKILOCYTOSIS SLIGHT
[2019-06-15] MEDS: MIDODRINE 10 MG (PROAMATINE) TAB PO SCH ×2 (09:13→13:43)
--- NOTE | 2019-06-15 09:28 | History & Physicial ---
History of Present Illness History of Present Illness Reason for visit/HPI THIS NOTE IS TO BE CONSIDERED A SHORT STAY SUMMARY/TRANSFER NOTE. PT IS A 78 Y/O MALE WHO IS A CLINIC PATIENT WHO IS NEW TO MY OFFICE. HE HAS BEEN SEEN IN CLINIC TWICE WITH A PROLONGED ADMISSION TO [facility] (3 WEEK ADMISSION) IN BETWEEN HIS OFFICE VISITS. HIS DAUGHTER CONTACTED ME LAST NIGHT WITH CONCERN FOR HER DAD LOOKING WORSE AND APPARENTLY HIS BLEEDING HAD SLOWED DOWN BUT YESTERDAY IT STARTED TO PICK BACK UP AND HE HAD CLOTS AND DARK AND THEN BRIGHT RED BLOOD AGAIN PER CATHETER. HE REPORTED TO HER THAT HE DID NOT WANT TO GO TO THE HOSPITAL BECAUSE HE IS AFRAID HE IS GOING TO IN THE HOSPITAL, BUT HE IS ALSO NOT WANTING HOSPICE BECAUSE HE IS AFRAID TO . Date of Admission Jun 14, 2019 at 19:43 Date Seen by a Provider: Jun 15, 2019 Time Seen by a Provider: 10:00 I consulted on this patient on 06/15/19 09:22 Attending Physician Rashmi Broussard MD Admitting Physician Rashmi Broussard MD Consult DR. DEVI Allergies and Home Medications Allergies Coded Allergies: No Known Drug Allergies (Unverified , 05/10/19) Patient Home Medication List Home Medication List Reviewed: Yes Past Mymkvwc-Niyzio-Wmafdh Hx Patient Social History Marrital Status: Living Status: LIVES IN HIS OWN APARTMENT - RECENT MOVE TO [place] Employed/Student: retired Alcohol Use: Denies Use Recreational Drug Use: No Smoking Status: Former Smoker Former Smoker, Quit: Apr 30, 1967 2nd Hand Smoke Exposure: No Physical Abuse Screen: No Sexual Abuse: No Recent Foreign Travel: No Contact w/other who traveled: No Recent Hopitalizations: No (BLOOD TRANSFUSIONS) Recent Infectious Disease Expo: No Immunizations Up To Date Date of Pneumonia Vaccine: May 17, 2016 Date of Influenza Vaccine: Jan 14, 2019 Surgeries Yes Appendectomy, CABG, Coronary Stent, Dialysis, Nose Respiratory Yes (CHF) Cardiovascular Yes Atrial Fibrillation, Chronic Edema/Swelling, Coronary Artery Disease, High Cholesterol Neurological Yes Neuropathy, Seizure Disorder Genitourinary Yes Prostate Problems, Renal Failure, Dialysis Gastrointestinal No Musculoskeletal No Endocrine History of Endocrine Disorders: Yes Endocrine Disorders: Diabetes, Non-Insulin dep HEENT History of HEENT Disorders: No Cancer Yes Prostate Type of Treatment: Radiation Psychosocial History of Psychiatric Problem: No Integumentary History of Skin or Integumenta: No Family Medical History Significant Family History: No Pertinent Family Hx Review of Systems Constitutional: No chills, No fever; malaise, weakness, weight loss EENTM: No hoarseness, No throat pain Respiratory: No cough, No dyspnea on exertion, No short of breath Cardiovascular: No chest pain, No palpitations Gastrointestinal: No abdominal pain, No nausea, No vomiting Genitourinary: decreased output, hematuria; No pain Musculoskeletal: no symptoms reported Skin: other (EASY BRUISING) Psychiatric/Neurological: Denies Anxiety, Denies Depressed; Weakness All Other Systems Reviewed Negative Unless Noted: Yes Physical Exam Vital Signs Vital Signs - First Documented 06/14/19 18:00 Temp 36.7 Pulse 70 Resp 16 B/P (MAP) 95/52 (66) Pulse Ox 100 O2 Delivery Room Air Capillary Refill : Less Than 3 Seconds Height, Weight, BMI Height: '" Weight: lbs. oz. kg; 18.67 BMI Method: General Appearance: No Apparent Distress, Chronically ill Eyes: Bilateral Eye Normal Inspection, Bilateral Eye PERRL HEENT: Pharynx Normal Neck: Full Range of Motion, Normal Inspection, Non Tender, Supple, Carotid Bruit Respiratory: Chest Non Tender, Lungs Clear, Normal Breath Sounds, No Accessory Muscle Use, No Respiratory Distress Cardiovascular: Regular Rate, Rhythm Gastrointestinal: Normal Bowel Sounds, No Organomegaly, No Pulsatile Mass, Non Tender, Soft Rectal: Deferred Genital/Rectal: Other (BLOOD IN CATHETER, TEA COLORED IN CATHETER BAG) Extremity: Normal Capillary Refill, Normal Range of Motion, Non Tender, No Pedal Edema Neurologic/Psychiatric: Alert, Normal Mood/Affect (GRUFF, IRRITABLE, BUT THIS IS HIS RECENT NORMAL SINCE BEING SICK), Other (ORIENTED TO PERSON AND PLACE, NOT TIME) Skin: Warm/Dry Comments [facility], [place] NAME: MARGARITO CHANDRA [facility] REC#: [id number] PT STATUS: REG CLI : 1940 PHYSICIAN: SANDRA DEVI MD ADMIT DATE: 06/13/19/CARD Signed Date of Exam:06/13/19 BONE SCAN WHOLE BODY INDICATION: Prostate cancer. COMPARISON: I have no previous for direct comparison. Study interpreted in correlation with CT abdomen performed 06/13/2019. TECHNIQUE: The patient received 27 mCi intravenous dose of technetium-99m MDP via the right antecubital. After 3 hours, whole-body planar imaging performed. FINDINGS: There are adjacent left ribs distally showing focal punctate abnormal uptake. Their consecutive nature and their focality favor uptake from healing rib fractures. Remaining ribs, sternum, and manubrium are unremarkable. The long bones are unremarkable aside from mild degenerative pattern of uptake. The calvarium is unremarkable. Soft tissue uptake and excretion by urinary tracts is unremarkable. A subtle photopenic defect in the right renal upper pole corresponding to a cyst seen at CT. IMPRESSION: Two consecutive ribs distally on the left show focal punctate elevated uptake. This pattern is most often attributable to healing rib fractures and post-traumatic uptake, particularly given the otherwise normal exam. This is above the field of view of the correlative CT abdomen. Perhaps a chest CT may be useful to confirm a benign explanation for this finding in an otherwise normal study. Dictated by: Dictated on workstation # [id number] Dict: 06/13/19 1459 Trans: 06/13/19 1647 [id number] Interpreted by: NOEMY MAY Electronically signed by: NOEMY MAY 06/13/19 1647 [facility], [place] NAME: MARGARITO CHANDRA [facility] REC#: [id number] PT STATUS: REG CLI : 1940 PHYSICIAN: SANDRA DEVI MD ADMIT DATE: 06/13/19/CARD Signed Date of Exam:06/13/19 CT ABDOMEN/PELVIS WO PROCEDURE: CT abdomen and pelvis without contrast. TECHNIQUE: Multiple contiguous axial images were obtained through the abdomen and pelvis without the use of intravenous contrast. Auto Exposure Controls were utilized during the CT exam to meet ALARA standards for radiation dose reduction. INDICATION: Prostate cancer, followup. No prior studies are available for comparison. The lung bases are clear. No discrete liver mass is detected. Gallbladder surgically absent. No biliary duct dilatation is seen. Pancreas and spleen are unremarkable. No adrenal mass is detected. Right kidney contains a low density in the upper pole measuring 2.3 cm, likely a cyst. No calculi or hydronephrosis is identified. 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 No retroperitoneal hemorrhage is detected. No central retroperitoneal lymphadenopathy is seen. Small and large bowel loops are normal caliber. There is no free fluid identified in the abdomen or pelvis. There appears to be a large lobulated heterogeneous density in the bladder base measuring 6.1 x 5.4 cm. Prostate contains radiation seeds and appears normal in size. No pelvic lymphadenopathy is identified. Bony structures are unremarkable. IMPRESSION: 1. Lobulated bladder mass. Cystoscopy is recommended for further evaluation. 2. No other significant abnormality is detected. Dictated by: Dictated on workstation # [id number] Dict: 06/13/19 1222 Trans: 06/13/19 1609 [facility] [id number] Interpreted by: AMALIA CASTILLO MD Electronically signed by: AMALIA CASTILLO MD 06/13/19 1602 Lab results: Laboratory Tests Test 06/14/19 18:19 06/14/19 22:10 06/15/19 05:29 06/15/19 10:09 Range/Units White Blood Count 4.8 6.1 4.3-11.0 10^3/uL Red Blood Count 2.30 L 3.10 L 4.35-5.85 10^6/uL Hemoglobin 5.8 #*L 8.0 #L 13.3-17.7 G/DL Hematocrit 18 *L 25 L 40-54 % Mean Corpuscular Volume 78 L 79 L 80-99 FL Mean Corpuscular Hemoglobin 25 26 25-34 PG Mean Corpuscular Hemoglobin Concent 32 33 32-36 G/DL Red Cell Distribution Width 20.6 H 20.6 H 10.0-14.5 % Platelet Count 180 160 130-400 10^3/uL Mean Platelet Volume 11.2 H 11.5 H 7.4-10.4 FL Neutrophils (%) (Auto) 79 H 82 H 42-75 % Lymphocytes (%) (Auto) 10 L 8 L 12-44 % Monocytes (%) (Auto) 10 10 0-12 % Eosinophils (%) (Auto) 0 0 0-10 % Basophils (%) (Auto) 0 0 0-10 % Neutrophils # (Auto) 3.8 5.0 1.8-7.8 X 10^3 Lymphocytes # (Auto) 0.5 L 0.5 L 1.0-4.0 X 10^3 Monocytes # (Auto) 0.5 0.6 0.0-1.0 X 10^3 Eosinophils # (Auto) 0.0 0.0 0.0-0.3 10^3/uL Basophils # (Auto) 0.0 0.0 0.0-0.1 10^3/uL Sodium Level 134 L 136 135-145 MMOL/L Potassium Level 3.7 3.9 3.6-5.0 MMOL/L Chloride Level 97 L 99 98-107 MMOL/L Carbon Dioxide Level 31 26 21-32 MMOL/L Anion Gap 6 11 5-14 MMOL/L Blood Urea Nitrogen 36 H 33 H 7-18 MG/DL Creatinine 2.11 H 1.82 H 0.60-1.30 MG/DL Estimat Glomerular Filtration Rate 31 36 BUN/Creatinine Ratio 17 18 Glucose Level 126 H 87 70-105 MG/DL Calcium Level 8.8 8.9 8.5-10.1 MG/DL Corrected Calcium 9.5 9.5 8.5-10.1 MG/DL Total Bilirubin 1.0 1.8 H 0.1-1.0 MG/DL Aspartate Amino Transf (AST/SGOT) 31 35 H 5-34 U/L Alanine Aminotransferase (ALT/SGPT) 34 35 0-55 U/L Alkaline Phosphatase 81 86 40-136 U/L Total Protein 5.3 L 5.5 L 6.4-8.2 GM/DL Albumin 3.1 L 3.2 3.2-4.5 GM/DL Urine Color RED H Urine Clarity CLOUDY Urine pH 6.5 5-9 Urine Specific [place] >=1.030 1.016-1.022 Urine Protein 2+ H NEGATIVE Urine Glucose (UA) 3+ H NEGATIVE Urine Ketones NEGATIVE NEGATIVE Urine Nitrite POSITIVE H NEGATIVE Urine Bilirubin 2+ H NEGATIVE Urine Urobilinogen 1.0 < = 1.0 MG/DL Urine Leukocyte Esterase 2+ H NEGATIVE Urine RBC (Auto) 3+ H NEGATIVE Urine RBC TNTC H /HPF Urine WBC 10-25 H /HPF Urine Squamous Epithelial Cells NONE /HPF Urine Crystals NONE /LPF Urine Bacteria MODERATE H /HPF Urine Casts NONE /LPF Urine Mucus NEGATIVE /LPF Urine Culture Indicated YES Neutrophils % (Manual) 86 % Lymphocytes % (Manual) 8 % Monocytes % (Manual) 6 % Eosinophils % (Manual) % Nucleated Red Blood Cells 4 Polychromasia MODERATE Hypochromasia SLIGHT Poikilocytosis SLIGHT Basophilic Stippling MODERATE Anisocytosis MODERATE Microcytosis SLIGHT Glucometer 247 H 70-110 MG/DL My orders: Orders - RASHMI BROUSSARD MD Lidocaine 2% (Urojet) (Xylocaine Urojet) (06/14/19 21:27) Ns Iv 1000 Ml (Sodium Chloride 0.9%) (06/14/19 23:15) Ondansetron Injection (Zofran Injectio (06/14/19 23:15) Meropenem (Merrem 500 Mg) (06/14/19 23:30) Levetiracetam Tablet (Keppra Tablet) (06/14/19 23:11) Furosemide Injection (Lasix Injection) (06/14/19 23:30) Midodrine Tablet (Proamatine) (06/15/19 09:00) Ambulate 08,12,20 (06/14/19 23:47) Sequential Compression Device Q4H (06/14/19 23:47) Dvt/Vte Risk - Notifiy Physici Q4H (06/14/19 23:47) Admission Order(Inpt,Obs,Sdc) (06/15/19 08:51) Code/Resuscitation (06/15/19 08:51) Initiate Admission Nursing Pro .admission (06/15/19 08:51) Isolation Central Supply Req (06/15/19 08:51) Assessment/Plan Assessment and Plan SEVERE ANEMIA GROSS HEMATURIA BLADDER MASS URINARY TRACT INFECTION HX PROSTATE CANCER ATRIAL FIBRILLATION HYPOTENSION SEIZURE DISORDER SEVERE ANEMIA - ON ADMISSION HGB OF 5.9, NOW AT 8.0 AFTER 2 UNIT TRANSFUSION - PT CONTINUES TO HAVE HEMATURIA, WILL CONTINUE WITH SERIAL H AND H. GROSS HEMATURIA WITH BLADDER MASS AND HX PROSTATE CANCER - UNABLE TO PLACE [address] CATHETER FOR CONTINUOUS IRRIGATION, PT HAS BEEN RECEIVING HAND IRRIGATION Q1 HOUR. URINARY TRACT INFECTION - NITRITE POSITIVE - YEAST ON PRELIMINARY CULTURE - WILL GIVE DIFLUCAN 150MG PO X 1 NOW - URINE CULTURE Preliminary Verified 06/15/19-0936Preliminary RML Source: URINE / U CATH,NOS Order Location: Fourth Floor-Med/Surg Organism 1 YEAST >100,000/ML PRELIMINARY REPORT MADE BY VCP - PT ON MEROPENEM DUE TO PAST REPORT OF RESISTANCE ON PREVIOUS URINE CULTURES - (SEE BELOW PAST CULTURE REPORT FROM 05/13/2019) - URINE CULTURE Final Verified 05/13/19- 1227Final RM Source: URINE / U CATH,NOS Order Location: Emergency Room - [place] Organism 1 MIXED BACTERIAL VIOLETTE WITH 30,000 CFU/ML Organism 2 Escherichia coli >100,000/ML SUSCEPTIBILITY REPORTED 05/13 12:05 PRELIM RAPID ID BY VCP 05-11-19, [id number] RML CONFIRMED ID 05-11-19, 16:05 Organism 3 SEE COMMENTS . Extended spectrum beta lactamase producing strain, resistant to penicillins, cephalosporins, and aztreonam. Note: resistant organism/contact precautions. ESBL called to RANDOLPH Vazquez on Cardiac Unit #1 05/13/19 12:25 by Wilber Umaña and faxed to [phone]. Esc coli INTERP AMPICILLIN R GENTAMICIN S CEFAZOLIN R CEFTRIAXONE R AMOX/CLAV R TRIMETH/SULFA S LEVOFLOXACIN S CIPROFLOXACIN S MEROPENEM S NITROFURANTOIN S ATRIAL FIBRILLATION - HOLDING ELIQUIS SINCE 06/12/2019 - RESUME AMIODARONE, HOLD BETA IAN DUE TO HIS BLOOD PRESSURE. HYPOTENSION - HOLDING BETA IAN DUE TO HYPOTENSION SEIZURE DISORDER - RESTARTED KEPPRA DUE TO INABILITY OF THE UROLOGIST TO SEE PATIENT SINCE HE IS OUT OF TOWN, AND AFTER A DISCUSSION WITH DR. DEVI, HE HAS RECOMMENDED THAT THE PATIENT NEEDS TO BE TRANSFERRED TO [facility] DUE TO NEED FOR CYSTOSCOPE. I HAVE DISCUSSED WITH PT'S DAUGHTERS THE FACT THAT HE IS IN A SEVERELY DEBILITATED STATE AND THIS MAY NOT BE A RECOVERABLE SITUATION. THEY ARE AWARE, BUT WANT TO FOLLOW HIS WISHES AT THIS TIME AND HE REMAINS A FULL CODE STATUS. WHEN/IF THE TIME COMES THAT THIS LOOKS LIKE AN INEVITABLE OUTCOME FOR PERSISTENT DECLINE, THEY ARE WILLING TO CONSIDER HOSPICE AT HOME. Admission Diagnosis SEVERE ANEMIA GROSS HEMATURIA BLADDER MASS URINARY TRACT INFECTION HX PROSTATE CANCER ATRIAL FIBRILLATION HYPOTENSION SEIZURE DISORDER Admission Status: Inpatient Order (span 2 midnights) Reason for Inpatient Admission: INPATIENT ADMISSIN WITH TRANSFER TO OTHER FACILITY DUE TO HIS NEED FOR CYSTOSCOPY AND UROLOGICAL CARE WHICH IS NOT CURRENTLY AVAILABLE AT THIS HOSPITAL. Clinical Quality Measures DVT/VTE Risk/Contraindication: Risk Factor Score Per Nursin RFS Level Per Nursing on Admit: 3=High RASHMI BROUSSARD MD Jun 15, 2019 09:28
[2019-06-15 12:22] LABS: HEMOGLOBIN 7.5 G/DL (13.3-17.7)
--- NOTE | 2019-06-15 15:06 | NUR ---
REPORT CALLED TO RANDOLPH TANG WHO WILL ASSUME CARE OF THIS PATIENT WHEN ARRIVES TO [facility] TO BE ADMITTED FOR CONTINUITY OF CARE.
== END 2019-06-15 15:35 | disposition short-term general hospital (02) | DRG 699 ==
LOC: EDUNIT# 17:56 → ER 17:57 → 4TH 19:43
PROVIDERS: ADMIT Family Medicine; ATTEND Family Medicine
DX: N32.9 Bladder disorder, unspecified (principal); R31.0 Gross hematuria; D62 Acute posthemorrhagic anemia; N39.0 Urinary tract infection, site not specified; I95.9 Hypotension, unspecified; I50.9 Heart failure, unspecified; I48.91 Unspecified atrial fibrillation; I25.10 Atherosclerotic heart disease of native coronary artery without angina pectoris; E78.00 Pure hypercholesterolemia, unspecified; E11.40 Type 2 diabetes mellitus with diabetic neuropathy, unspecified; G40.909 Epilepsy, unspecified, not intractable, without status epilepticus; B96.20 Unspecified Escherichia coli [E. coli] as the cause of diseases classified elsewhere; B37.49 Other urogenital candidiasis; Z85.46 Personal history of malignant neoplasm of prostate; Z87.891 Personal history of nicotine dependence; Z95.1 Presence of aortocoronary bypass graft; Z95.5 Presence of coronary angioplasty implant and graft; Z90.49 Acquired absence of other specified parts of digestive tract
CPT/HCPCS: 36415; 36430; 80053; 81000; 82962; 85007; 85014; 85018; 85025; 85027; 86850; 86900; 86901; 86920; 87088

== ENCOUNTER → 2019-06-23 | Outpatient (CLI) | payer MEDICARE, BC ==
[2019-06-23 16:11] LABS: BASOPHILS % (AUTO) 1 % (0-10); EOSINOPHILS % (AUTO) 1 % (0-10); HEMATOCRIT 26 % (40-54); HEMOGLOBIN 7.9 G/DL (13.3-17.7); LYMPHOCYTES # (AUTO) 0.4 X 10^3 (1.0-4.0); LYMPHOCYTES % (AUTO) 12 % (12-44); MEAN CORPUSCULAR HEMOGLOBIN 25 PG (25-34); MEAN CORPUSCULAR HGB CONC 30 G/DL (32-36); MEAN CORPUSCULAR VOLUME 82 FL (80-99); MEAN PLATELET VOLUME 9.9 FL (7.4-10.4); MONOCYTES # (AUTO) 0.5 X 10^3 (0.0-1.0); MONOCYTES % (AUTO) 15 % (0-12); NEUTROPHILS # (AUTO) 2.4 X 10^3 (1.8-7.8); NEUTROPHILS % (AUTO) 72 % (42-75); PLATELET COUNT 214 10^3/uL (130-400); RED CELL DISTRIBUTION WIDTH 19.6 % (10.0-14.5); WHITE BLOOD COUNT 3.3 10^3/uL (4.3-11.0)
[2019-06-23 16:42] LABS: CALCIUM 9.1 MG/DL (8.5-10.1); CREATININE SERUM 1.52 MG/DL (0.60-1.30); POTASSIUM 3.4 MMOL/L (3.6-5.0)
== END ==
LOC: LAB 15:47
PROVIDERS: ATTEND Urology
DX: R31.9 Hematuria, unspecified (principal)
CPT/HCPCS: 36415; 80048; 85025

== ENCOUNTER 2019-06-30 19:28 | Emergency (ER) | payer MEDICARE, BC ==
[~2019-06-30] VITALS: Ht 175.2 cm; Wt 60.6 kg
[~2019-06-30 19:28] MED LIST changes: -AMIO200T4; +AMIO200T4 PO; -BUME2TAB7; -DIGO125T3; -EMPA10TA; -LEVE500T6; +LEVE500T6 PO; -LEVO25TA5; -MIDO10TA
--- NOTE | 2019-06-30 20:27 | ED GU-Male ---
General Chief Complaint: - Urinary Stated Complaint: HAD WALKER REMOVED TODAY,BLEEDING Nursing Triage Note: DIFFICULTY THIS EVENING ATTEMPTING TO SELF CATH. HAD PROCEDURE DONE 2 WEEKS AGO TO REPAIR THE URETHRA HAS HAD A WALKER SINCE THEN AND WAS REMOVED TODAY BY DR MOSES. SINCE HAS ATTEMPTED TO SELF CATH 2 TIMES THE SECOND TIME MET RESISTANCE AND HAD BLOOD IN THE TUBING. HAS A HX OF USING ELIQUIS. WAS STOPPED PRIOR TO PROCEDURE Source: patient History of Present Illness Date Seen by Provider: Jun 30, 2019 Time Seen by Provider: 19:50 Initial Comments PT ARRIVES VIA POV FROM HOME PT HAS CHRONIC BLADDER OUTLET OBSTRUCTION AND SELF-CATHS, AND APPARENTLY HE HAD A TRAUMATIC SELF CATH ATTEMPT , AND WAS HAVING HEMATURIA--PT HAS BEEN ON ELIQUIS FOR CHRONIC ATRIAL FIBRILLATION PT HAD SURGERY TO REPAIR URETHRA BY DR. AMBRIZ 06/18/19 ELIQUIS HAD BEEN STOPPED PT HAS HAD A WALKER CATHETER IN PLACE SINCE SURGERY PT FOLLOWED UP WITH DR. DEVI, HIS REGULAR UROLOGIST TODAY, HAD CYSTOSCOPY AND WAS TOLD EVERYTHING LOOKED WELL, AND WALKER CATHETER WAS DC'D PT STATES SINCE HE HAD THE WALKER REMOVED, HE SELF-CATHED AT HOME, AND THE FIRST TIME IT WAS CLEAR THE SECOND TIME, HE HAD BLOODY URINE AND POSSIBLY TISSUE, SO HE DID NOT FULLY INSERT THE CATHETER OR DRAIN HIS BLADDER THE THIRD TIME, HE HAD PURE BLOOD ON PARTIAL INSERTION, SO HE DID NOT ATTEMPT TO INSERT THE CATHETER ANY FURTHER AND DID NOT DRAIN ANY URINE, AND CAME HERE DOSE C/O SOME MILD LOWER ABDOMINAL PRESSURE AND MILD SENSATION OF FULL BLADDER NO FEVER NO NAUSEA/VOMITING NO BLEEDING FROM OTHER SITES AND NO EXCESSIVE BRUISING PT ALSO HAS HISTORY OF PROSTATE CANCER TREATED WITH RADIATION PT WAS SEEN HERE 06/14/19 AND ADMITTED FOR HEMATURIA AND HAD TO HAVE TRANSFUSION DUE TO ANEMIA, THEN TRANSFERRED TO [place] , DR. DEVI WAS NOT AVAILABLE AT THAT TIME. PT HAD BEEN ON DIALYSIS, UNTIL APPROXIMATELY 3 MONTHS AGO. PCP: DR. MURDOCK UROLOGIST: DR. DEVI PT RECENTLY MOVED HERE Allergies and Home Medications Allergies Coded Allergies: No Known Drug Allergies (Unverified , 06/30/19) Home Medications Acetaminophen 325 Mg Tablet, 650 MG PO Q8H PRN for PAIN-MILD (1-4), (Reported) Amiodarone HCl 200 Mg Tablet, 200 MG PO DAILY, (Reported) Bumetanide 2 Mg Tablet, 2 MG PO DAILY PRN for WEIGHT GAIN OF 3LBS, (Reported) Bumetanide 1 Mg Tablet, 2 MG PO DAILY, (Reported) TAKES 2 (1MG) TABS DAILY Cyanocobalamin (Vitamin B-12) 2,500 Mcg Tablet, 2,500 MCG PO DAILY, (Reported) Digoxin 125 Mcg Tablet, 125 MCG PO MO,WE,FR, (Reported) Empagliflozin 10 Mg Tablet, 10 MG PO DAILY, (Reported) Levetiracetam 500 Mg Tablet, 500 MG PO BID, (Reported) Levothyroxine Sodium 25 Mcg Tablet, 25 MCG PO DAILY, (Reported) Midodrine HCl 10 Mg Tablet, 15 MG PO TID, (Reported) TAKES 1 & (10MG) TABS THREE TIMES A DAY Vit C/E/Zn/Coppr/Lutein/Zeaxan 1 Each Capsule, 1 EACH PO BID, (Reported) Patient Home Medication List Home Medication List Reviewed: Yes Review of Systems Review of Systems Constitutional: no symptoms reported; No chills, No diaphoresis, No fever Respiratory: no symptoms reported Cardiovascular: no symptoms reported (HX OF CHRONIC ATRIAL FIBRILLATION) Gastrointestinal: see HPI; No nausea, No vomiting Genitourinary: see HPI, hematuria Musculoskeletal: no symptoms reported; No back pain Skin: no symptoms reported Psychiatric/Neurological: No Symptoms Reported Endocrine: No Symptoms Reported Hematologic/Lymphatic: See HPI Past Kwczoum-Ggbdsj-Ikqanh Hx Past Med/Social Hx: Reviewed and Corrections made Patient Social History Alcohol Use: Denies Use Recreational Drug Use: No Former Smoker, Quit: Apr 30, 1967 2nd Hand Smoke Exposure: No Recent Foreign Travel: No Contact w/Someone Who Travel: No Recent Infectious Disease Expo: No Recent Hopitalizations: No (BLOOD TRANSFUSIONS) Physical Abuse: No Sexual Abuse: No Mistreated: No Fear: No Immunizations Up To Date Date of Pneumonia Vaccine: May 17, 2016 Date of Influenza Vaccine: Jan 14, 2019 Past Medical History Surgeries: Yes (RECENT URETHRAL PROCEDURE-REPAIR OF URETHRA; ) Appendectomy, Cardiac, CABG, Coronary Stent, Dialysis, Nose Respiratory: Yes (CHF) Cardiac: Yes (CHF; CABG; CARDIAC STENTS) Atrial Fibrillation, Chronic Edema/Swelling, Coronary Artery Disease, High Cholesterol, Hypertension Neurological: Yes Neuropathy, Seizure Disorder Genitourinary: Yes (06/18/19 URETHRAL PROCEDURE WITH 2 WEEK WALKER;NO LONGER ON DIALYSIS) Prostate Problems, Renal Failure, Dialysis Gastrointestinal: No Musculoskeletal: No Endocrine: Yes Diabetes, Non-Insulin dep HEENT: No Cancer: Yes Prostate Did You Recieve Any Treatments: Yes What Type of Treatment Did You: Radiation Psychosocial: No Integumentary: No Blood Disorders: No Adverse Reaction/Blood Tranf: No Family Medical History No Pertinent Family Hx Physical Exam Vital Signs Vital Signs - First Documented 06/30/19 19:35 Temp 36.5 Pulse 70 Resp 20 B/P (MAP) 102/59 (73) Pulse Ox 98 Capillary Refill : Less Than 3 Seconds Height, Weight, BMI Height: '" Weight: lbs. oz. kg; 19.00 BMI Method: General Appearance: WD/WN, no apparent distress, other (DOES NOT APPEAR TO BE IN ANY DISCOMFORT OR DISTRESS) Cardiovascular: no edema, no murmur, irregularly irregular Respiratory: normal breath sounds, no respiratory distress, no accessory muscle use Gastrointestinal: normal bowel sounds, non tender, soft, other (BLADDER IS NOT PALPABLE AT THIS TIME) Back: no CVA tenderness Extremities: normal inspection, pedal edema (TRACE BILATERALLY) Neurologic/Psychiatric: no motor/sensory deficits, alert, normal mood/affect, oriented x 3 Skin: normal color, warm/dry; No ecchymosis Progress/Results/Core Measures Suspected Sepsis Recent Fever Within 48 Hours: No Infection Criteria Present: None New/Unexplained Altered Menta: No Sepsis Screen: No Definite Risk SIRS Temperature: Pulse: 70 Respiratory Rate: 20 Blood Pressure 102 /59 Mean: 73 Results/Orders Lab Results Laboratory Tests Test 06/30/19 20:44 Range/Units Urine Color YELLOW Urine Clarity SL CLOUDY Urine pH 7.0 5-9 Urine Specific Secretary 1.010 L 1.016-1.022 Urine Protein NEGATIVE NEGATIVE Urine Glucose (UA) 3+ H NEGATIVE Urine Ketones NEGATIVE NEGATIVE Urine Nitrite NEGATIVE NEGATIVE Urine Bilirubin NEGATIVE NEGATIVE Urine Urobilinogen 1.0 < = 1.0 MG/DL Urine Leukocyte Esterase 1+ H NEGATIVE Urine RBC (Auto) 2+ H NEGATIVE Urine RBC 10-25 H /HPF Urine WBC 2-5 /HPF Urine Squamous Epithelial Cells RARE /HPF Urine Crystals NONE /LPF Urine Bacteria TRACE /HPF Urine Casts NONE /LPF Urine Mucus NEGATIVE /LPF Urine Culture Indicated NO My Orders Orders - STEPHANIE JOSEPH DO Bladder Scan (06/30/19 19:56) Catheter(Urinary) Insert & Ass 03,15 (06/30/19 20:25) Lidocaine 2% (Urojet) (Xylocaine Urojet) (06/30/19 20:32) Lidocaine 2% (Urojet) (Xylocaine Urojet) (06/30/19 20:45) Ua Culture If Indicated (06/30/19 20:43) Medications Given in ED Vital Signs/I&O 06/30/19 06/30/19 19:35 21:08 Temp 36.5 Pulse 70 69 Resp 20 20 B/P (MAP) 102/59 (73) 110/70 Pulse Ox 98 98 Capillary Refill : Less Than 3 Seconds Blood Pressure Mean: 73 Progress Note : Progress Note BLADDER SCAN--325 ML 16 FR WALKER PLACED WITHOUT DIFFICULTY WITH IMMEDIATE RETURN OF > 250 ML CLEAR URINE, AND STILL DRAINING. NO CLOTS OR GROSS HEMATURIA. UNEVENTFUL ER STAY Departure Communication (Admissions) 2014--SPOKE WITH DR. DEVI, HE ADVISES TO PLACE WALKER CATHETER AND CALL HIM BACK 2044--SPOKE WITH DR. DEVI, HE ADVISES TO SEND PT HOME AND HE WILL SEE HIM IN OFFICE ON SUNDAY AT 2:30 PM Impression Primary Impression: CHRONIC URINARY RETENTION Additional Impression: Hematuria Disposition: HOME, SELF-CARE Condition: Stable Departure-Patient Inst. Referrals: RASHMI MURDOCK MD (PCP/Family) Primary Care Physician SANDRA DEVI MD Patient Instructions: Blood in the Urine (Hematuria), Adult (DC), Urinary Retention (DC) Add. Discharge Instructions: LEAVE CATHETER IN PLACE FOLLOW UP WITH DR. DEVI ON SUNDAY AT 2:30 FOR FURTHER CARE, OR SOONER IF PROBLEMS All discharge instructions reviewed with patient and/or family. Voiced understanding. STEPHANIE JOSEPH DO Jun 30, 2019 20:27
[2019-06-30] MEDS ORDERED: LIDOCAINE UROJET 2% GEL 10 ML PKG ONE (20:32)
[2019-06-30] MEDS ORDERED: LIDOCAINE UROJET 2% GEL 10 ML PKG TOP ONE (20:45)
[2019-06-30 20:52] LABS: BILIRUBIN,URINE NEGATIVE (NEGATIVE); COLOR,URINE YELLOW; GLUCOSE, URINE (UA) 3+ (NEGATIVE); KETONES,URINE NEGATIVE (NEGATIVE); LEUKOCYTE ESTERASE ,URINE 1+ (NEGATIVE); NITRITE,URINE NEGATIVE (NEGATIVE); PROTEIN,URINE NEGATIVE (NEGATIVE)
[2019-06-30] MEDS ORDERED: BUME2TAB7 PO (20:52)
[2019-06-30] MEDS ORDERED: MIDO10TA PO (20:52)
[2019-06-30] MEDS ORDERED: DIGO125T3 PO (20:52)
[2019-06-30] MEDS ORDERED: EMPA10TA PO (20:52)
[2019-06-30] MEDS ORDERED: LEVO25TA5 PO (20:52)
[2019-06-30 20:58] LABS: CLARITY,URINE SL CLOUDY
[2019-06-30 20:59] LABS: BACTERIA,URINE TRACE /HPF; SQUAMOUS EPITHELIAL CELL,UR RARE /HPF
--- NOTE | 2019-06-30 21:00 | NUR ---
leg bag attached to indwelling catheter for patient to manage at home.
[2019-06-30 21:08] VITALS: BP 110/70
--- OUTSIDE RECORDS SUMMARY | 2019-07-01 02:31 | XMS REPORT | Continuity of Care Document ---
Author Organization Unknown Address Unknown Phone Unavailable Allergies Active Description Code Type Severity Reaction Onset Reported/Identified Relationship to Patient Clinical Status Yes No Known Allergies [id number] Miscellaneous Allergy Moderate N/A Yes No Known Medication Allergies ##NOMEN##,AL1,ceStruct,allergy,[id number] Unknown N/A N/A Yes No Known Drug Allergies [id number] Drug Allergy Unknown N/A 06/30/2019 Medications Medication Packaging Start Date St op Date Route Dosage Sig LIDOCAINE MPF VIAL 1##37; 5 ML (XYLOCAINE) 09/24/2017 09/24/2017 INJECTION 5 CATARACT COMBINATION OPHTH DROPS 1 ML 09/25/2017 09/25/2017 BOTH EYES 1 MOXIFLOXACIN OPHTH BASIM. 3 ML (VIGAMOX) 09/25/2017 09/25/2017 SCHEDULED EYE 3 LIDOCAINE HCL JELLY 2##37; 5 ML (XYLOCAINE ) 09/25/2017 09/25/2017 SCHEDULED EYE 1 MIDAZOLAM VIAL 2 MG/2 ML (VERSED) 09/25/2017 IV 2 TETRACAINE OP DROP 0.5##37; 4 ML 09/25/2017 09/25/2017 BOTH EYES 1 LIDOCAINE MPF VIAL 1##37; 5 ML (XYLOCAINE) 09/25/2017 OTHER 5 BRIMONIDINE OP BASIM, 0.2##37; (ALPHAGAN) 09/25/2017 SCHEDULED EYE 5 ACETAMINOPHEN 325 MG TAB (TYLENOL) 09/25/2017 PO 650 DUOVISC INJ 0.55 ML IN OR EYE KIT 09/25/2017 INJ 1 TIMOTHY/POLY/DEX OPHTH OINT (MAXITROL) 09/25/2017 SCHEDULED EYE 1 WATER IRRIG, 250 ML 09/25/2017 IRRIGATION 1 BALANCED SALT SOLN 500 ML (BSS PLUS) 09/25/2017 OPHTH 500 BALANCED SALT SOLN 15 ML (BSS) 09/25/2017 OPHTH 15 CARBACHOL INTRA BASIM 0.01##37; (MIOSTAT) 09/25/2017 09/25/2017 SCHEDULED EYE 1 OMIDRIA OPHTHALMIC SOLUTION 0.3##37;-1##37 ; 09/25/2017 09/25/2017 OPHTHALMIC 1 MIDAZOLAM VIAL 2 MG/2 ML (VERSED) 09/25/2017 09/25/2017 IV PUSH 1 LIDOCAINE MPF VIAL 1##37; 5 ML (XYLOCAINE) 10/08/2017 10/08/2017 INJECTION 5 SALINE LOCK FLUSH 10 ML PREMIX SYRINGES 10/08/2017 IV PUSH 5 CATARACT COMBINATION OPHTH DROPS 1 ML 10/09/2017 10/09/2017 SCHEDULED EYE 1 LIDOCAINE MPF VIAL 1##37; 5 ML (XYLOCAINE) 10/09/2017 OTHER 5 BRIMONIDINE OP BASIM, 0.2##37; (ALPHAGAN) 10/09/2017 SCHEDULED EYE 5 MOXIFLOXACIN OPHTH BASIM. 3 ML (VIGAMOX) 10/09/2017 10/09/2017 SCHEDULED EYE 3 LIDOCAINE HCL JELLY 2##37; 5 ML (XYLOCAINE ) 10/09/2017 10/09/2017 SCHEDULED EYE 1 TIMOTHY/POLY/DEX OPHTH OINT (MAXITROL) 10/09/2017 SCHEDULED EYE 1 MIDAZOLAM VIAL 2 MG/2 ML (VERSED) 10/09/2017 IV 2 WATER IRRIG, 250 ML 10/09/2017 IRRIGATION 1 TETRACAINE OP DROP 0.5##37; 4 ML 10/09/2017 10/09/2017 BOTH EYES 1 CARBACHOL INTRA BASIM 0.01##37; (MIOSTAT) 10/09/2017 10/09/2017 SCHEDULED EYE 1 BALANCED SALT SOLN 500 ML (BSS PLUS) 10/09/2017 OPHTH 500 ACETAMINOPHEN 325 MG TAB (TYLENOL) 10/09/2017 PO 650 DUOVISC INJ 0.55 ML IN OR EYE KIT 10/09/2017 INJ 1 BALANCED SALT SOLN 15 ML (BSS) 10/09/2017 OPHTH 15 OMIDRIA OPHTHALMIC SOLUTION 0.3##37;-1##37 ; 10/09/2017 10/09/2017 OPHTHALMIC 1 MIDAZOLAM VIAL 2 MG/2 ML (VERSED) 10/09/2017 10/09/2017 IV PUSH 1 cyanocobalamin Vitamin B12 12/19/2017 2500 mcg LIDOCAINE MPF VIAL 1##37; 5 ML (XYLOCAINE) 01/04/2018 01/04/2018 INJECTION 5 LR 1000 ML 01/0701/07/2018 IV 1 LIDOCAINE MPF VIAL 1##37; 30 ML (XYLOCAINE ) 01/07/2018 01/07/2018 INJECTION 1 PROPOFOL INJ,10 MG/ML 20 ML VIAL 01/07/2018 01/07/2018 INTRAVENOUS 1 LIDOCAINE-MPF VL 2##37; 5 ML (XYLOCAINE-MP F) 01/07/2018 01/07/2018 INJECTION 1 PROPOFOL INJ,10 MG/ML 20 ML VIAL 01/07/2018 01/07/2018 INTRAVENOUS 1 WATER IRRIG, 1000 ML 01/07/2018 01/07/2018 IRRIGATION 1 LIDOCAINE MPF VIAL 1##37; 5 ML (XYLOCAINE) 03/22/2018 03/22/2018 INJECTION 5 multivitamin with minerals ICaps AREDS oral capsule 12/05/2018 02/13/2019 Oral cefTRIAXone VIAL 1 GM ROCEPHIN 01/16/2019 01/16/2019 IVPB 1 FUROSEMIDE VIAL, 40 MG/4 ML (LASIX) 01/23/2019 01/23/2019 IV PUSH 1 INFLUENZA HIGH-DOSE SYR 0.5 ML 01/23/2019 01/23/2019 INTRAMUSCULAR 0.5 ACETAMINOPHEN 325 MG TAB (TYLENOL) 01/23/2019 PO 650 FUROSEMIDE VIAL, 40 MG/4 ML (LASIX) 01/23/2019 IV PUSH 40 ONDANSETRON VIAL,4 MG/2 ML VL (ZOFRAN) 01/23/2019 IV PUSH 4 SALINE LOCK FLUSH 10 ML PREMIX SYRINGES 01/23/2019 IV PUSH 5 SALINE NASAL SPRAY (DEEP SEA) 01/23/2019 BOTH NOSTRILS 1 ALUM.MAG.W/SIMETH, 30 ML (MAALOX PLUS) 01/23/2019 ORAL 30 MILK OF MAGNESIA 30 ML UD CUP 01/23/2019 ORAL 30 NF-Vitamin B12 Tablet 2500mcg 01/23/2019 01/24/2019 PO 2500 ASPIRIN EC TAB, 81 MG (HALFPRIN) 01/23/2019 ORAL 81 ATORVASTATIN TAB, 40 MG (LIPITOR) 01/23/2019 PO 40 CEPHALEXIN CAP, 500 MG (KEFLEX) 01/23/2019 PO 500 AMIODARONE TAB, 200 MG (CORDARONE) 01/23/2019 PO 200 METOPROLOL XL TAB 100 MG (TOPROL-XL) 01/23/2019 ORAL 100 levETIRAcetam TAB 500 MG (KEPPRA) 01/23/2019 PO 500 metFORMIN TAB, 500 MG (GLUCOPHAGE) 01/23/2019 PO 500 VIT A,C,E+MINERALS+LUTEIN(OCUVITE) 01/23/2019 ORAL 1 WARFARIN TAB, 2 MG (COUMADIN) 01/23/2019 PO 2 INFLUENZA SYR 0.5 ML VAC 01/24/2019 01/24/2019 INTRAMUSCULAR 1 CYANOCOBALAMIN TAB, 1000 MCG (VIT B-12) 01/24/2019 ORAL 2500 NITROGLYCERIN SL TAB, 0.4 MG. BTL OF 01/24/2019 01/24/2019 SL 0.4 NITROGLYCERIN OINT 2##37; 30 GM (NITROBID) 01/24/2019 TRANSDERMAL 1 NITROGLYCERIN SL TAB, 0.4 MG. BTL OF 01/24/2019 01/24/2019 SL 1 NITROGLYCERIN UD 2##37; (NITRO-BID) 01/24/2019 01/24/2019 TRANSDERMAL 1 MORPHINE VIAL, 10 MG/ML IV/IM 01/24/2019 01/24/2019 IV PUSH 1 apixaban Eliquis 5 mg oral t ablet 02/13/2019 Oral 5 mg amiodarone amiodarone 200 mg oral tablet 02/13/2019 Oral 200 mg INFLUENZA SYR 0.5 ML VAC 02/23/2019 01/24/2019 INTRAMUSCULAR 0.5 SALINE NASAL SPRAY (DEEP SEA) 03/24/2019 BOTH NOSTRILS 1 ACETAMINOPHEN 325 MG TAB (TYLENOL) 03/24/2019 PO 650 ONDANSETRON VIAL,4 MG/2 ML VL (ZOFRAN) 03/24/2019 IV PUSH 4 SALINE LOCK FLUSH 10 ML PREMIX SYRINGES 03/24/2019 IV PUSH 5 BISACODYL SUPP, 10 MG (DULCOLAX) 03/24/2019 RECTAL 10 ALUM.MAG.W/SIMETH, 30 ML (MAALOX PLUS) 03/24/2019 ORAL 30 guaiFENesin DM UD 5 ML (ROBITUSSIN DM) 03/24/2019 ORAL 5 MILK OF MAGNESIA 30 ML UD CUP 03/24/2019 ORAL 30 ASPIRIN EC TAB, 81 MG (HALFPRIN) 03/24/2019 ORAL 81 ATORVASTATIN TAB, 40 MG (LIPITOR) 03/24/2019 PO 40 AMIODARONE TAB, 200 MG (CORDARONE) 03/24/2019 PO 200 CYANOCOBALAMIN TAB, 1000 MCG (VIT B-12) 03/24/2019 ORAL 2500 levETIRAcetam TAB 500 MG (KEPPRA) 03/24/2019 PO 500 VIT A,C,E+MINERALS+LUTEIN(OCUVITE) 03/24/2019 ORAL 1 APIXABAN 5 MG TAB (ELIQUIS) 03/24/2019 PO 5 SOD CHLOR IRRIG 0.9##37; 1000 ML BOTTLE 03/24/2019 03/24/2019 IRRIGATION 1 LIDOCAINE HCL 2##37; URO-JET JELLY 6 ML 03/24/2019 03/24/2019 URETHRAL 6 NS 100 ML 201803/25/2019 IVPB 1 FUROSEMIDE VIAL, 40 MG/4 ML (LASIX) 03/25/2019 03/25/2019 IV PUSH 3 Problems Date Dx Coded Attending Type Code Diagnosis Diagnosed By 01/03/2017 DELORIS RAZA N3 90 Urinary tract infection, site not specified 01/24/2017 DEONTE RUIZ E875 Hyperkalemia 01/24/2017 DEONTE RUIZ I10 Essential (primary) hypertension 01/29/2017 DEONTE RUIZ I5022 Chronic systolic (congestive) heart failure 09/25/2017 LOLI KURTZ E7800 Pure hypercholesterolemia, unspecified 09/25/2017 LOLI KURTZ [id number] Combined forms of age-related cataract, left eye 09/25/2017 LOLI KURTZ I10 Essential (primary) hypertension 09/25/2017 LOLI KURTZ N400 Benign prostatic hyperplasia without lower urinary tract symptoms 09/25/2017 LOLI KURTZ R569 Unspecified convulsions 09/25/2017 LOLI KURTZ S95266 Personal history of nicotine dependence 10/09/2017 LOLI KURTZ E7800 Pure hypercholesterolemia, unspecified 10/09/2017 LOLI KURTZ H25647 Combined forms of age-related cataract, right eye 10/09/2017 LOLI KURTZ I10 Essential (primary) hypertension 10/09/2017 LOLI KURTZ N400 Benign prostatic hyperplasia without lower urinary tract symptoms 10/09/2017 LOLI KURTZ R569 Unspecified convulsions 10/09/2017 LOLI KURTZ [id number] Personal history of nicotine dependence 01/07/2018 LISANDRO VALDEZ C61 Malignant neoplasm of prostate 01/07/2018 LISANDRO VALDEZ R9720 Elevated prostate specific antigen [PSA] 01/07/2018 LISANDRO VALDEZ S11539 Personal history of nicotine dependence 03/25/2018 LISANDRO VALDEZ C61 Malignant neoplasm of prostate 03/25/2018 LISANDRO VALDEZ B15928 Personal history of nicotine dependence 09/02/2018 LISANDRO VALDEZ R399 Unspecified symptoms and signs involving the genitourinary system 01/06/2019 ABRAHAM SANCHEZ I4891 Unspecified atrial fibrillation 01/06/2019 ABRAHAM SANCHEZ Z7901 rn long term care (current) use of anticoagulants 01/09/2019 ABRAHAM SANCHEZ I4891 Unspecified atrial fibrillation 01/09/2019 ABRAHAM SANCHEZ Z7901 rn long term care (current) use of anticoagulants 01/16/2019 ABRAHAM SANCHEZ I4891 Unspecified atrial fibrillation 01/16/2019 ABRAHAM SANCHEZ Z7901 skilled nursing (current) use of anticoagulants 01/16/2019 STEPHEN SEGUNDO N S I48 91 Unspecified atrial fibrillation 01/16/2019 STEPHEN SEGUNDO N P N30 91 Cystitis, unspecified with hematuria 01/16/2019 STEPHEN SEGUNDO N S R79 1 Abnormal coagulation profile 01/20/2019 ABRAHAM SANCHEZ I4891 Unspecified atrial fibrillation 01/20/2019 ABRAHAM SANCHEZ Z7901 rn long term care (current) use of anticoagulants 01/24/2019 DELORIS RAZA E1 19 Type 2 diabetes mellitus without complications 01/24/2019 DELORIS RAZA E7 800 Pure hypercholesterolemia, unspecified 01/24/2019 DELORIS RAZA R21417 Epilepsy, unspecified, not intractable, without status epilepticus 01/24/2019 DELORIS RAZA I1 10 Hypertensive heart disease with heart failure 01/24/2019 DELORIS RAZA [id number] Atherosclerotic heart disease of [place] coronary artery with unstable angina pectoris 01/24/2019 DELORIS RAZA I2 55 Ischemic cardiomyopathy 01/24/2019 DELORIS RAZA I4 80 Paroxysmal atrial fibrillation 01/24/2019 DELORIS RAZA I5 023 Acute on chronic systolic (congestive) heart failure 01/24/2019 DELORIS RAZA M1 09 Gout, unspecified 01/24/2019 DELORIS RAZA N3 90 Urinary tract infection, site not specified 01/24/2019 DELORIS RAZA N5 29 Male erectile dysfunction, unspecified 01/24/2019 DELORIS RAZA Z2 3 Encounter for immunization 01/24/2019 DELORIS RAZA Z7 901 rn long term care (current) use of anticoagulants 01/24/2019 DELORIS RAZA Z7 984 rn long term care (current) use of oral hypoglycemic drugs 01/24/2019 DELORIS RAZA Z8 546 Personal history of malignant neoplasm of prostate 01/24/2019 DELORIS RAZA U08636 Personal history of nicotine dependence 01/24/2019 DELORIS RAZA Z9 049 Acquired absence of other specified parts of digestive tract 01/24/2019 DELORIS RAZA Z9 51 Presence of aortocoronary bypass graft 01/24/2019 DELORIS RAZA [id number] Presence of automatic (implantable) cardiac defibrilla tor 01/24/2019 DELORIS RAZA U22835 Other specified postprocedural states 03/07/2019 JON GARDNER I2510 Atherosclerotic heart disease of [place] coronary artery without angina pectoris 03/07/2019 JON GARDNER P 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 03/25/2019 DAYDAY JAQUEZ D649 Anemia, unspecified 03/25/2019 DAYDAY JAQUEZ 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 03/25/2019 DAYDAY JAQUEZ E7800 Pure hypercholesterolemia, unspecified 03/25/2019 ROSAM DAYDAY S E782 Mixed hyperlipidemia 03/25/2019 DAYDAY JAQUEZ Z64848 Epilepsy, unspecified, not intractable, without status epilepticus 03/25/2019 DAYDAY JAQUEZ I130 Hypertensive heart and chronic kidney disease with heart failure and stage 1 through stage 4 chronic kidney disease, or unspecified chronic kidney disease 03/25/2019 DAYDAY JAQUEZ I2510 Atherosclerotic heart disease of [place] coronary artery without angina pectoris 03/25/2019 DAYDAY JAQUEZ I255 Ischemic cardiomyopathy 03/25/2019 RANSOM, DAYDAY S I480 Paroxysmal atrial fibrillation 03/25/2019 RANSOM, DAYDAY S I5023 Acute on chronic systolic (congestive) heart failure 03/25/2019 RANSOM, DAYDAY S M109 Gout, unspecified 03/25/2019 RANSOM, DAYDAY S N179 Acute kidney failure, unspecified 03/25/2019 RANSOM, DAYDAY S N189 Chronic kidney disease, unspecified 03/25/2019 RANSOM, DAYDAY S N390 Urinary tract infection, site not specified 03/25/2019 RANSOM, DAYDAY S R7989 Other specified abnormal findings of blood chemistry 03/25/2019 RANSOM, DAYDAY S Z7901 rn long term care (current) use of anticoagulants 03/25/2019 RANSOM, DAYDAY S Z7984 skilled nursing (current) use of oral hypoglycemic drugs 03/25/2019 RANSOM, DAYDAY S Z8546 Personal history of malignant neoplasm of prostate 03/25/2019 RANSOM, DAYDAY S W71559 Personal history of nicotine dependence 03/25/2019 RANSOM, DAYDAY S Z9049 Acquired absence of other specified parts of digestive tract 03/25/2019 RANSOM, DAYDAY S Z951 Presence of aortocoronary bypass graft 03/25/2019 RANSOM, DAYDAY S K27180 Presence of automatic (implantable) cardiac defibrillator 03/25/2019 RANSOM, DAYDAY S Z95067 Other specified postprocedural states 04/11/2019 JON GARDNER S S I2510 Atherosclerotic heart disease of [place] coronary artery without angina pectoris 04/11/2019 JON GARDNER P 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 05/10/2019 CAS LAI APRN Ot C6 1 MALIGNANT NEOPLASM OF PROSTATE 05/10/2019 CAS LAI APRN Ot C6 1 MALIGNANT NEOPLASM OF PROSTATE 05/10/2019 CAS LAI APRN Ot C6 1 MALIGNANT NEOPLASM OF PROSTATE 05/10/2019 DENIA MORGAN, MARLA Bearden Ot D64.9 ANEMIA, UNSPECIFIED 05/10/2019 DENIA MORGAN, MARLA Bearden Ot E11.22 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 MELLITUS 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 05/10/2019 MARLA LOZA MD Ot F41.9 ANXIETY DISORDER, UNSPECIFIED 05/10/2019 MARLA LOZA MD Ot I48.91 UNSPECIFIED ATRIAL FIBRILLATION 05/10/2019 MARLA LOZA MD Ot I50.9 HEART FAILURE, UNSPECIFIED 05/10/2019 MARLA LOZA MD Ot L03.116 CELLULITIS OF LEFT LOWER LIMB 05/10/2019 MARLA LOZA MD Ot M79.604 PAIN IN RIGHT LEG 05/10/2019 MARLA LOZA MD, Ot N18.9 CHRONIC KIDNEY DISEASE, UNSPECIFIED 05/10/2019 MARLA LOZA MD Ot N39.0 URINARY TRACT INFECTION, SITE NOT SPECIF 05/10/2019 MARLA LOZA MD, Ot 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 05/10/2019 MARLA LOZA MD Ot Z85.46 PERSONAL HISTORY OF MALIGNANT NEOPLASM O 05/10/2019 MARLA LOZA MD Ot Z87.891 PERSONAL HISTORY OF NICOTINE DEPENDENCE 05/10/2019 MARLA LOZA MD Ot Z90.49 ACQUIRED ABSENCE OF OTHER SPECIFIED PART 05/10/2019 MARLA LOZA MD Ot Z95.1 PRESENCE OF AORTOCORONARY BYPASS GRAFT 05/10/2019 MARLA LOZA MD Ot Z95.5 PRESENCE OF CORONARY ANGIOPLASTY IMPLANT 05/10/2019 MARLA LOZA MD Ot Z99.2 DEPENDENCE ON RENAL DIALYSIS 05/12/2019 CAS LAI APRN Ot C6 1 MALIGNANT NEOPLASM OF PROSTATE 05/12/2019 CAS LAI APRN Ot I50.9 HEART FAILURE, UNSPECIFIED 05/12/2019 CAS LAI APRN Ot N1 9 UNSPECIFIED KIDNEY FAILURE 05/12/2019 CAS LAI APRN Ot S00.03XA CONTUSION OF SCALP, INITIAL ENCOUNTER 05/12/2019 CAS LAI APRN Ot W19.XXXA UNSPECIFIED FALL, INITIAL ENCOUNTER 05/12/2019 CAS ALI APRN Ot 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 05/12/2019 CAS LAI APRN Ot Z95.828 PRESENCE OF OTHER VASCULAR IMPLANTS AND 05/13/2019 MARLA LOZA MD Ot D64.9 ANEMIA, UNSPECIFIED 05/13/2019 MARLA LOZA MD Ot E11.22 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 MELLITUS 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 05/13/2019 MARLA LOZA MD Ot F41.9 ANXIETY DISORDER, UNSPECIFIED 05/13/2019 MARLA LOZA MD Ot I48.91 UNSPECIFIED ATRIAL FIBRILLATION 05/13/2019 MARLA LOZA MD Ot I50.9 HEART FAILURE, UNSPECIFIED 05/13/2019 MARLA LOZA MD Ot L03.116 CELLULITIS OF LEFT LOWER LIMB 05/13/2019 MARLA LOZA MD Ot M79.604 PAIN IN RIGHT LEG 05/13/2019 MARLA LOZA MD, Ot N18.9 CHRONIC KIDNEY DISEASE, UNSPECIFIED 05/13/2019 MARLA LOZA MD, Ot N39.0 URINARY TRACT INFECTION, SITE NOT SPECIF 05/13/2019 MARLA LOZA MD, Ot Z79.01 [facility] (CURRENT) USE OF ANTICOAGULANT 05/13/2019 MARLA LOZA MD Ot Z85.46 PERSONAL HISTORY OF MALIGNANT NEOPLASM O 05/13/2019 MARLA LOZA MD Ot Z87.891 PERSONAL HISTORY OF NICOTINE DEPENDENCE 05/13/2019 MARLA LOZA MD Ot Z90.49 ACQUIRED ABSENCE OF OTHER SPECIFIED PART 05/13/2019 MARLA LOZA MD Ot Z95.1 PRESENCE OF AORTOCORONARY BYPASS GRAFT 05/13/2019 MARLA LOZA MD Ot Z95.5 PRESENCE OF CORONARY ANGIOPLASTY IMPLANT 05/13/2019 MARLA LOZA MD Ot Z99.2 DEPENDENCE ON RENAL DIALYSIS 05/14/2019 CAS LAI APRN Ot C6 1 MALIGNANT NEOPLASM OF PROSTATE 05/14/2019 CAS LAI APRN Ot I50.9 HEART FAILURE, UNSPECIFIED 05/14/2019 CAS LAI APRN Ot N1 9 UNSPECIFIED KIDNEY FAILURE 05/14/2019 CAS LAI APRN Ot S00.03XA CONTUSION OF SCALP, INITIAL ENCOUNTER 05/14/2019 CAS LAI POLISHER AND BUFFER Ot W19.XXXA UNSPECIFIED FALL, INITIAL ENCOUNTER 05/14/2019 CAS LAI POLISHER AND BUFFER Ot 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 05/14/2019 CAS LAI POLISHER AND BUFFER Ot Z95.828 PRESENCE OF OTHER VASCULAR IMPLANTS AND 06/05/2019 CAS LAI POLISHER AND BUFFER Ot C6 1 MALIGNANT NEOPLASM OF PROSTATE 06/05/2019 CAS LAI POLISHER AND BUFFER Ot I50.9 HEART FAILURE, UNSPECIFIED 06/05/2019 CAS LAI POLISHER AND BUFFER Ot N1 9 UNSPECIFIED KIDNEY FAILURE 06/05/2019 CAS LAI POLISHER AND BUFFER Ot S00.03XA CONTUSION OF SCALP, INITIAL ENCOUNTER 06/05/2019 CAS LAI APRN Ot W19.XXXA UNSPECIFIED FALL, INITIAL ENCOUNTER 06/05/2019 CAS LAI POLISHER AND BUFFER Ot 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 06/05/2019 CAS LAI POLISHER AND BUFFER Ot Z95.828 PRESENCE OF OTHER VASCULAR IMPLANTS AND 06/11/2019 CAS LAI POLISHER AND BUFFER Ot C6 1 MALIGNANT NEOPLASM OF PROSTATE 06/11/2019 CAS LAI POLISHER AND BUFFER Ot I50.9 HEART FAILURE, UNSPECIFIED 06/11/2019 CAS LAI APRN Ot N1 9 UNSPECIFIED KIDNEY FAILURE 06/11/2019 CAS LAI POLISHER AND BUFFER Ot S00.03XA CONTUSION OF SCALP, INITIAL ENCOUNTER 06/11/2019 CAS LAI POLISHER AND BUFFER Ot W19.XXXA UNSPECIFIED FALL, INITIAL ENCOUNTER 06/11/2019 CAS LAI POLISHER AND BUFFER Ot 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 06/11/2019 CAS LAI POLISHER AND BUFFER Ot Z95.828 PRESENCE OF OTHER VASCULAR IMPLANTS AND 06/12/2019 CAS LAI POLISHER AND BUFFER Ot D64.9 ANEMIA, UNSPECIFIED 06/12/2019 CAS LAI POLISHER AND BUFFER Ot D64.9 ANEMIA, UNSPECIFIED 06/12/2019 CAS LAI POLISHER AND BUFFER Ot D64.9 ANEMIA, UNSPECIFIED 06/12/2019 CAS LAI POLISHER AND BUFFER Ot D64.9 ANEMIA, UNSPECIFIED 06/12/2019 CAS LAI POLISHER AND BUFFER Ot D64.9 ANEMIA, UNSPECIFIED 06/13/2019 CAS LAI POLISHER AND BUFFER Ot D64.9 ANEMIA, UNSPECIFIED 06/13/2019 W C61 Prosta te cancer Cas Lai 06/13/2019 W G40.909 Ep ilepsy Cas Lai 06/13/2019 W I48.11 Med gstanding persistent atrial fibrillation Cas Lai 06/13/2019 W I50.43 Acu te on chronic combined systolic and diastolic congestive heart failure Cas Lai 06/13/[address] asis edema with ulcer of right lower extremity Cas Lai 06/13/[address] asis edema with ulcer of left lower extremity Cas Lai 06/13/2019 W M54.2 Neck pain Cas Lai 06/13/2019 W N18.5 Stag e 5 chronic kidney disease not on chronic dialysis Cas Lai 06/13/2019 W R60.0 Loca lized edema Cas Lai 06/13/2019 W W19.XXXA Fall Cas Lai 06/13/2019 W Z78.9 Self -catheterizes urinary bladder Cas Lai 06/13/2019 W Z09 Hospit al discharge follow-up Cas Lai 06/15/2019 MATHIEU MORGAN, RASHMI Uriostegui Ot B37.49 OTHER UROGENITAL CANDIDIASIS 06/15/2019 MATHIEU MORGAN, RASHMI Uriostegui Ot B96.20 UNSP ESCHERICHIA COLI THE CAUSE OF DI 06/15/2019 RASHMI BROUSSARD MD Ot D6 2 ACUTE POSTHEMORRHAGIC ANEMIA 06/15/2019 RASHMI BROUSSARD MD Ot E11.40 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 MELLITUS WITH DIABETIC N 06/15/2019 RASHMI BROUSSARD MD Ot E78.00 PURE HYPERCHOLESTEROLEMIA, UNSPECIFIED 06/15/2019 RASHMI BROUSSARD MD Ot G40.909 EPILEPSY, UNSP, NOT INTRACTABLE, WITHOUT 06/15/2019 RASHMI BROUSSARD MD Ot I25.10 ATHSCL HEART DISEASE OF [place] CORONARY 06/15/2019 MATHIEU MORGAN, RASHMI Uriostegui Ot I48.91 UNSPECIFIED ATRIAL FIBRILLATION 06/15/2019 RASHMI BROUSSARD MD Ot I50.9 HEART FAILURE, UNSPECIFIED 06/15/2019 RASHMI BROUSSARD MD Ot I95.9 HYPOTENSION, UNSPECIFIED 06/15/2019 RASHMI BROUSSARD MD Ot N32.9 BLADDER DISORDER, UNSPECIFIED 06/15/2019 RASHMI BROUSSARD MD Ot N39.0 URINARY TRACT INFECTION, SITE NOT SPECIF 06/15/2019 RASHMI BROUSSARD MD Ot R31.0 GROSS HEMATURIA 06/15/2019 RASHMI BROUSSARD MD Ot Z85.46 PERSONAL HISTORY OF MALIGNANT NEOPLASM O 06/15/2019 RASHMI BROUSSARD MD Ot Z87.891 PERSONAL HISTORY OF NICOTINE DEPENDENCE 06/15/2019 RASHMI BROUSSARD MD Ot Z90.49 ACQUIRED ABSENCE OF OTHER SPECIFIED PART 06/15/2019 RASHMI BROUSSARD MD Ot Z95.1 PRESENCE OF AORTOCORONARY BYPASS GRAFT 06/15/2019 RASHMI BROUSSARD MD Ot Z95.5 PRESENCE OF CORONARY ANGIOPLASTY IMPLANT 06/16/2019 MARITO MORGAN, SANDRA Uriostegui Ot C61 MALIGNANT NEOPLASM OF PROSTATE 06/16/2019 MARITO MORGAN, SANDRA Uriostegui Ot N32.9 BLADDER DISORDER, UNSPECIFIED 06/16/2019 MARITO MORGAN, SANDRA Uriostegui Ot C61 MALIGNANT NEOPLASM OF PROSTATE 06/16/2019 MARITO MORGAN, SANDRA A Ot N32.9 BLADDER DISORDER, UNSPECIFIED 06/17/2019 MARITO MORGAN, SANDRA A Ot C61 MALIGNANT NEOPLASM OF PROSTATE 06/17/2019 MARITO MORGAN, SANDRA A Ot N32.9 BLADDER DISORDER, UNSPECIFIED 06/17/2019 ZAHEER MIKE Ot Z01.89 ENCOUNTER FOR OTHER SPECIFIED SPECIAL EX 06/30/2019 W D50.0 Iron deficiency anemia due to chronic blood loss Rashmi Broussard 06/30/2019 W I48.11 Med gstanding persistent atrial fibrillation Rashmi Broussard 06/30/2019 W N18.5 Stag e 5 chronic kidney disease not on chronic dialysis Rashmi Broussard Procedures There is no data. Results Test Result Range Complete blood count (CBC) with automate d white blood cell (WBC) differential - 05/08/19 12:34 Blood leukocytes automated count (number/volume) 8.7 10*3/uL 4.3-11.0 Blood erythrocytes automated count (number/volume) 3.70 10*6/uL 4.35-5.85 Venous blood hemoglobin measurement (mass/volume) 8.3 g/dL 13.3-17.7 Blood hematocrit (volume fraction) 26 % 40-54 Automated erythrocyte mean corpuscular volume 70 [ foz_us] 80-99 Automated erythrocyte mean corpuscular h emoglobin (mass per erythrocyte) 22 pg 25-34 Automated erythrocyte mean corpuscular h emoglobin concentration measurement (mass/volume) 32 g/dL 32-36 Automated erythrocyte distribution width ratio 21. 3 % 10.0- 14.5 Automated blood platelet count (count/volume) 285 10*3/uL 130-400 Automated blood platelet mean volume measurement 12.2 [foz_us] 7.4-10.4 Automated blood neutrophils/100 leukocytes 88 % 42-75 Automated blood lymphocytes/100 leukocytes 7 % 12-44 Blood monocytes/100 leukocytes 5 % 0-12 Automated blood eosinophils/100 leukocytes 0 % 0-10 Automated blood basophils/100 leukocytes 0 % 0-10 Blood neutrophils automated count (number/volume) 7.7 10*3 1.8-7.8 Blood lymphocytes automated count (number/volume) 0.6 10*3 1.0-4.0 Blood monocytes automated count (number/volume) 0. 5 10*3 0.0-1.0 Automated eosinophil count 0.0 10*3/uL 0 .0-0.3 Automated blood basophil count (count/volume) 0.0 10*3/uL 0.0-0.1 Comprehensive metabolic panel - 05/08/19 12:34 Serum or plasma sodium measurement (moles/volume) 138 mmol/L 135-145 Serum or plasma potassium measurement (moles/volume) 4.5 mmol/L 3.6-5.0 Serum or plasma chloride measurement (moles/volume) 95 mmol/L 98-107 Carbon dioxide 28 mmol/L 21-32 Serum or plasma anion gap determination (moles/volume) 15 mmol/L 5-14 Serum or plasma urea nitrogen measurement (mass/volume ) 73 mg/dL 7-18 Serum or plasma creatinine measurement (mass/volume) 2.39 mg/dL 0.60-1.30 Serum or plasma urea nitrogen/creatinine mass ratio 31 NRG Serum or plasma creatinine measurement w ith calculation of estimated glomerular filtration rate 27 NRG Serum or plasma glucose measurement (mass/volume) 134 mg/dL 70-105 Serum or plasma calcium measurement (mass/volume) 9.7 mg/dL 8.5-10.1 Serum or plasma total bilirubin measurement (mass/volu me) 2.4 mg/dL 0.1-1.0 Serum or plasma alkaline phosphatase gauri surement (enzymatic activity/volume) 154 U/L 40-136 Serum or plasma aspartate aminotransfera se measurement (enzymatic activity/volume) 43 U/L 5-34 Serum or plasma alanine aminotransferase measurement (enzymatic activity/volume) 35 U/L 0-55 Serum or plasma protein measurement (mass/volume) 7.2 g/dL 6.4-8.2 Serum or plasma albumin measurement (mass/volume) 3.6 g/dL 3.2-4.5 CALCIUM CORRECTED 10.0 mg/dL 8.5-10.1 Manual absolute plasma cell count - 04/17 07/03 12:34 Blood monocytes/100 leukocytes 2 % NRG Manual blood segmented neutrophils/100 leukocytes 95 % NRG Manual blood lymphocytes/100 leukocytes 3 % NRG Blood polychromasia detection by light microscopy MODERATE NRG Blood anisocytosis detection by light microscopy M ODERATE NRG Blood macrocytes detection by light microscopy MOD ERATE NRG Blood hypochromia detection by light microscopy MA RKED NRG Blood target cells detection by light microscopy M ODERATE NRG Blood basophilic stippling detection by light microsco py SLIGHT NRG Semen free prostate specific antigen (PS A) measurement (units/volume) - 05/08/19 12:34 PSA EQUIMOLAR (SWATI) 7.23 % 0.00-4.0 0 Complete blood count (CBC) with automate d white blood cell (WBC) differential - 05/10/19 10:37 Blood leukocytes automated count (number/volume) 6.6 10*3/uL 4.3-11.0 Blood erythrocytes automated count (number/volume) 3.56 10*6/uL 4.35-5.85 Venous blood hemoglobin measurement (mass/volume) 8.0 g/dL 13.3-17.7 Blood hematocrit (volume fraction) 25 % 40-54 Automated erythrocyte mean corpuscular volume 71 [ foz_us] 80-99 Automated erythrocyte mean corpuscular h emoglobin (mass per erythrocyte) 22 pg 25-34 Automated erythrocyte mean corpuscular h emoglobin concentration measurement (mass/volume) 32 g/dL 32-36 Automated erythrocyte distribution width ratio 21. 5 % 10.0- 14.5 Automated blood platelet count (count/volume) 253 10*3/uL 130-400 Automated blood platelet mean volume measurement 10.7 [foz_us] 7.4-10.4 Automated blood neutrophils/100 leukocytes 85 % 42-75 Automated blood lymphocytes/100 leukocytes 8 % 12-44 Blood monocytes/100 leukocytes 7 % 0-12 Automated blood eosinophils/100 leukocytes 0 % 0-10 Automated blood basophils/100 leukocytes 0 % 0-10 Blood neutrophils automated count (number/volume) 5.6 10*3 1.8-7.8 Blood lymphocytes automated count (number/volume) 0.5 10*3 1.0-4.0 Blood monocytes automated count (number/volume) 0. 5 10*3 0.0-1.0 Automated eosinophil count 0.0 10*3/uL 0 .0-0.3 Automated blood basophil count (count/volume) 0.0 10*3/uL 0.0-0.1 PT panel in platelet poor plasma by coag ulation assay - 05/10/19 10:37 Prothrombin time (PT) in platelet poor plasma by coagu lation assay 24.2 s 12.2-14.7 INR in platelet poor plasma or blood by coagulation as say 2.1 0.8-1.4 Activated partial thromboplastin time (a PTT) in platelet poor plasma bycoagulation assay - 05/10/19 10:37 Activated partial thromboplastin time (a PTT) in platelet poor plasma bycoagulation assay 59 s 24-35 Comprehensive metabolic panel - 05/10/19 10:37 Serum or plasma sodium measurement (moles/volume) 136 mmol/L 135-145 Serum or plasma potassium measurement (moles/volume) 4.0 mmol/L 3.6-5.0 Serum or plasma chloride measurement (moles/volume) 93 mmol/L 98-107 Carbon dioxide 27 mmol/L 21-32 Serum or plasma anion gap determination (moles/volume) 16 mmol/L 5-14 Serum or plasma urea nitrogen measurement (mass/volume ) 73 mg/dL 7-18 Serum or plasma creatinine measurement (mass/volume) 2.40 mg/dL 0.60-1.30 Serum or plasma urea nitrogen/creatinine mass ratio 30 NRG Serum or plasma creatinine measurement w ith calculation of estimated glomerular filtration rate 26 NRG Serum or plasma glucose measurement (mass/volume) 144 mg/dL 70-105 Serum or plasma calcium measurement (mass/volume) 9.5 mg/dL 8.5-10.1 Serum or plasma total bilirubin measurement (mass/volu me) 2.2 mg/dL 0.1-1.0 Serum or plasma alkaline phosphatase gauri surement (enzymatic activity/volume) 167 U/L 40-136 Serum or plasma aspartate aminotransfera se measurement (enzymatic activity/volume) 38 U/L 5-34 Serum or plasma alanine aminotransferase measurement (enzymatic activity/volume) 36 U/L 0-55 Serum or plasma protein measurement (mass/volume) 7.1 g/dL 6.4-8.2 Serum or plasma albumin measurement (mass/volume) 3.5 g/dL 3.2-4.5 CALCIUM CORRECTED 9.9 mg/dL 8.5-10.1 Magnesium - 05/10/19 10:37 Magnesium 2.1 mg/dL 1.6-2.4 Serum or plasma C reactive protein measu rement (mass/volume) - 05/10/19 10:37 Serum or plasma C reactive protein measurement (mass/v olume) 10.79 mg/dL 0.00-0.50 Serum or plasma lithium measurement (mol es/volume) - 05/10/19 10:37 [place] 2682.9 pg/mL <100.0 Complete urinalysis with reflex to cultu re - 05/10/19 11:01 Urine color determination YELLOW NRG Urine clarity determination SL CLOUDY N RG Urine pH measurement by test strip 6.0 5-9 Specific gravity of urine by test strip 1.010 1.016-1.022 Urine protein assay by test strip, semi-quantitative NEGATIVE NEGATIVE Urine glucose detection by automated test strip NE GATIVE NEGATIVE Erythrocytes detection in urine sediment by light micr oscopy 3+ NEGATIVE Urine ketones detection by automated test strip NE GATIVE NEGATIVE Urine nitrite detection by test strip NEGATIVE NEGATIVE Urine total bilirubin detection by test strip NEGA TIVE NEGATIVE Urine urobilinogen measurement by automated test strip (mass/volume) 4.0 mg/dL < = 1.0 Urine leukocyte esterase detection by dipstick 1+ NEGATIVE Automated urine sediment erythrocyte cou nt by microscopy (number/high power field) [HPF] NRG Automated urine sediment leukocyte count by microscopy (number/high power field) [HPF] NRG Bacteria detection in urine sediment by light microsco py LARGE NRG Crystals detection in urine sediment by light microsco py NONE NRG Casts detection in urine sediment by light microscopy NONE NRG Mucus detection in urine sediment by light microscopy NEGATIVE NRG Complete urinalysis with reflex to culture YES NRG Bacterial urine culture - 05/10/19 11:01 Bacterial urine culture SEE COMMEN NRG COLONY COUNT . NRG FTX;REPORTABLE SUSCEPTIBILITY REPORTED 05/13 12:05 NRG FREE TEXT ENTRY 2 PRELIM RAPID ID BY VCP 05-11-19, [id number] NRG FREE TEXT ENTRY 3 RML CONFIRMED ID 05-11-19, 16:05 NRG Dirithromycin susceptibility test by dis k diffusion - 05/10/19 11:01 Gentamicin susceptibility test by minimum inhibitory c oncentration <= NRG Trimethoprim/sulfamethoxazole susceptibi lity test by minimum inhibitoryconcentration <= NRG Levofloxacin susceptibility test by minimum inhibitory concentration <= NRG Ampicillin susceptibility test by minimum inhibitory c oncentration > NRG Cefazolin susceptibility test by minimum inhibitory co ncentration > NRG Ceftriaxone susceptibility test by minimum inhibitory concentration > NRG Ciprofloxacin susceptibility test by minimum inhibitor y concentration <= NRG Meropenem susceptibility test by minimum inhibitory co ncentration <= NRG Nitrofurantoin susceptibility test by mi nimum inhibitory concentration <= NRG Amoxicillin and clavulanate potassium susc HAMLET R NRG Whole blood hemoglobin and hematocrit [facility] 06/11/19 15:58 Venous blood hemoglobin measurement (mass/volume) 6.6 g/dL 13.3-17.7 Blood hematocrit (volume fraction) 21 % 40-54 RED CELLS LEUKO REDUCED AS1 - 06/11/19 1 5:58 RED CELLS LEUKO REDUCED AS1 T RANSFUSED 06/12/19 1141 NRG Blood type T Indirect antibody screen [facility] 06/11/19 15:58 WRISTBAND NUMBER [id number] NRG ABO+Rh group AN NRG Blood group antibody screen NEGATIVE NR G Whole blood hemoglobin and hematocrit [facility] 06/12/19 14:40 Venous blood hemoglobin measurement (mass/volume) 6.9 g/dL 13.3-17.7 Blood hematocrit (volume fraction) 21 % 40-54 Whole blood hemoglobin and hematocrit [facility] 06/12/19 15:02 Venous blood hemoglobin measurement (mass/volume) 7.5 g/dL 13.3-17.7 Blood hematocrit (volume fraction) 23 % 40-54 Whole blood hemoglobin and hematocrit [facility] - 06/12/19 18:20 Venous blood hemoglobin measurement (mass/volume) 8.6 g/dL 13.3-17.7 Blood hematocrit (volume fraction) 26 % 40-54 Whole blood hemoglobin and hematocrit [facility] 06/13/19 11:45 Venous blood hemoglobin measurement (mass/volume) 8.3 g/dL 13.3-17.7 Blood hematocrit (volume fraction) 25 % 40-54 Complete blood count (CBC) with automate d white blood cell (WBC) differential - 06/14/19 18:19 Blood leukocytes automated count (number/volume) 4.8 10*3/uL 4.3-11.0 Blood erythrocytes automated count (number/volume) 2.30 10*6/uL 4.35-5.85 Venous blood hemoglobin measurement (mass/volume) 5.8 g/dL 13.3-17.7 Blood hematocrit (volume fraction) 18 % 40-54 Automated erythrocyte mean corpuscular volume 78 [ foz_us] 80-99 Automated erythrocyte mean corpuscular h emoglobin (mass per erythrocyte) 25 pg 25-34 Automated erythrocyte mean corpuscular h emoglobin concentration measurement (mass/volume) 32 g/dL 32-36 Automated erythrocyte distribution width ratio 20. 6 % 10.0- 14.5 Automated blood platelet count (count/volume) 180 10*3/uL 130-400 Automated blood platelet mean volume measurement 11.2 [foz_us] 7.4-10.4 Automated blood neutrophils/100 leukocytes 79 % 42-75 Automated blood lymphocytes/100 leukocytes 10 % 12-44 Blood monocytes/100 leukocytes 10 % 0-12 Automated blood eosinophils/100 leukocytes 0 % 0-10 Automated blood basophils/100 leukocytes 0 % 0-10 Blood neutrophils automated count (number/volume) 3.8 10*3 1.8-7.8 Blood lymphocytes automated count (number/volume) 0.5 10*3 1.0-4.0 Blood monocytes automated count (number/volume) 0. 5 10*3 0.0-1.0 Automated eosinophil count 0.0 10*3/uL 0 .0-0.3 Automated blood basophil count (count/volume) 0.0 10*3/uL 0.0-0.1 Comprehensive metabolic panel - 06/14/19 18:19 Serum or plasma sodium measurement (moles/volume) 134 mmol/L 135-145 Serum or plasma potassium measurement (moles/volume) 3.7 mmol/L 3.6-5.0 Serum or plasma chloride measurement (moles/volume) 97 mmol/L 98-107 Carbon dioxide 31 mmol/L 21-32 Serum or plasma anion gap determination (moles/volume) 6 mmol/L 5-14 Serum or plasma urea nitrogen measurement (mass/volume ) 36 mg/dL 7-18 Serum or plasma creatinine measurement (mass/volume) 2.11 mg/dL 0.60-1.30 Serum or plasma urea nitrogen/creatinine mass ratio 17 NRG Serum or plasma creatinine measurement w ith calculation of estimated glomerular filtration rate 31 NRG Serum or plasma glucose measurement (mass/volume) 126 mg/dL 70-105 Serum or plasma calcium measurement (mass/volume) 8.8 mg/dL 8.5-10.1 Serum or plasma total bilirubin measurement (mass/volu me) 1.0 mg/dL 0.1-1.0 Serum or plasma alkaline phosphatase gauri surement (enzymatic activity/volume) 81 U/L 40-136 Serum or plasma aspartate aminotransfera se measurement (enzymatic activity/volume) 31 U/L 5-34 Serum or plasma alanine aminotransferase measurement (enzymatic activity/volume) 34 U/L 0-55 Serum or plasma protein measurement (mass/volume) 5.3 g/dL 6.4-8.2 Serum or plasma albumin measurement (mass/volume) 3.1 g/dL 3.2-4.5 CALCIUM CORRECTED 9.5 mg/dL 8.5-10.1 RED CELLS LEUKO REDUCED AS1 - 06/14/19 1 8:19 RED CELLS LEUKO REDUCED AS1 T RANSFUSED 06/14/191921 NRG Blood type T Indirect antibody screen pa harvinder - 06/14/19 18:19 WRISTBAND NUMBER [id number] NRG ABO+Rh group AN NRG Blood group antibody screen NEGATIVE NR G Complete urinalysis with reflex to cultu re - 06/14/19 22:10 Urine color determination RED NRG Urine clarity determination CLOUDY NR G Urine pH measurement by test strip 6.5 5-9 Specific gravity of urine by test strip >= 1.016-1.022 Urine protein assay by test strip, semi-quantitative 2+ NEGATIVE Urine glucose detection by automated test strip 3+ NEGATIVE Erythrocytes detection in urine sediment by light micr oscopy 3+ NEGATIVE Urine ketones detection by automated test strip NE GATIVE NEGATIVE Urine nitrite detection by test strip POSITIVE NEGATIVE Urine total bilirubin detection by test strip 2+ NEGATIVE Urine urobilinogen measurement by automated test strip (mass/volume) 1.0 mg/dL < = 1.0 Urine leukocyte esterase detection by dipstick 2+ NEGATIVE Automated urine sediment erythrocyte cou nt by microscopy (number/high power field) TNTC NRG Automated urine sediment leukocyte count by microscopy (number/high power field) [HPF] NRG Bacteria detection in urine sediment by light microsco py MODERATE NRG Squamous epithelial cells detection in u rine sediment by light microscopy NONE NRG Crystals detection in urine sediment by light microsco py NONE NRG Casts detection in urine sediment by light microscopy NONE NRG Mucus detection in urine sediment by light microscopy NEGATIVE NRG Complete urinalysis with reflex to culture YES NRG Bacterial urine culture - 06/14/19 22:10 Bacterial urine culture [id number] NRG COLONY COUNT >100,000/ML NRG FREE TEXT ENTRY 2 PRELIMINARY REPORT MADE BY VCP NRG FREE TEXT ENTRY 3 RML CONFIRMED ID 06/15/19 17:05 NRG Complete blood count (CBC) with automate d white blood cell (WBC) differential - 06/15/19 05:29 Blood leukocytes automated count (number/volume) 6.1 10*3/uL 4.3-11.0 Blood erythrocytes automated count (number/volume) 3.10 10*6/uL 4.35-5.85 Venous blood hemoglobin measurement (mass/volume) 8.0 g/dL 13.3-17.7 Blood hematocrit (volume fraction) 25 % 40-54 Automated erythrocyte mean corpuscular volume 79 [ foz_us] 80-99 Automated erythrocyte mean corpuscular h emoglobin (mass per erythrocyte) 26 pg 25-34 Automated erythrocyte mean corpuscular h emoglobin concentration measurement (mass/volume) 33 g/dL 32-36 Automated erythrocyte distribution width ratio 20. 6 % 10.0- 14.5 Automated blood platelet count (count/volume) 160 10*3/uL 130-400 Automated blood platelet mean volume measurement 11.5 [foz_us] 7.4-10.4 Automated blood neutrophils/100 leukocytes 82 % 42-75 Automated blood lymphocytes/100 leukocytes 8 % 12-44 Blood monocytes/100 leukocytes 10 % 0-12 Automated blood eosinophils/100 leukocytes 0 % 0-10 Automated blood basophils/100 leukocytes 0 % 0-10 Blood neutrophils automated count (number/volume) 5.0 10*3 1.8-7.8 Blood lymphocytes automated count (number/volume) 0.5 10*3 1.0-4.0 Blood monocytes automated count (number/volume) 0. 6 10*3 0.0-1.0 Automated eosinophil count 0.0 10*3/uL 0 .0-0.3 Automated blood basophil count (count/volume) 0.0 10*3/uL 0.0-0.1 Comprehensive metabolic panel - 06/15/19 05:29 Serum or plasma sodium measurement (moles/volume) 136 mmol/L 135-145 Serum or plasma potassium measurement (moles/volume) 3.9 mmol/L 3.6-5.0 Serum or plasma chloride measurement (moles/volume) 99 mmol/L 98-107 Carbon dioxide 26 mmol/L 21-32 Serum or plasma anion gap determination (moles/volume) 11 mmol/L 5-14 Serum or plasma urea nitrogen measurement (mass/volume ) 33 mg/dL 7-18 Serum or plasma creatinine measurement (mass/volume) 1.82 mg/dL 0.60-1.30 Serum or plasma urea nitrogen/creatinine mass ratio 18 NRG Serum or plasma creatinine measurement w ith calculation of estimated glomerular filtration rate 36 NRG Serum or plasma glucose measurement (mass/volume) 87 mg/dL 70-105 Serum or plasma calcium measurement (mass/volume) 8.9 mg/dL 8.5-10.1 Serum or plasma total bilirubin measurement (mass/volu me) 1.8 mg/dL 0.1-1.0 Serum or plasma alkaline phosphatase gauri surement (enzymatic activity/volume) 86 U/L 40-136 Serum or plasma aspartate aminotransfera se measurement (enzymatic activity/volume) 35 U/L 5-34 Serum or plasma alanine aminotransferase measurement (enzymatic activity/volume) 35 U/L 0-55 Serum or plasma protein measurement (mass/volume) 5.5 g/dL 6.4-8.2 Serum or plasma albumin measurement (mass/volume) 3.2 g/dL 3.2-4.5 CALCIUM CORRECTED 9.5 mg/dL 8.5-10.1 Manual absolute plasma cell count - 05/05 05:29 Blood monocytes/100 leukocytes 6 % NRG Manual blood segmented neutrophils/100 leukocytes 86 % NRG Manual blood lymphocytes/100 leukocytes 8 % NRG Blood polychromasia detection by light microscopy MODERATE NRG Blood anisocytosis detection by light microscopy M ODERATE NRG Blood poikilocytosis detection by light microscopy SLIGHT NRG Manual blood nucleated erythrocytes/100 leukocytes ratio 4 NRG Blood hypochromia detection by light microscopy SL IGHT NRG Blood microcytes detection by light microscopy SLI GHT NRG Blood basophilic stippling detection by light microsco py MODERATE NRG Capillary blood glucose measurement by g lucometer (mass/volume) - 06/15/19 10:09 Capillary blood glucose measurement by glucometer (mas s/volume) 247 mg/dL 70-110 Whole blood hemoglobin and hematocrit pa harvinder - 06/15/19 12:10 Venous blood hemoglobin measurement (mass/volume) 7.5 g/dL 13.3-17.7 Blood hematocrit (volume fraction) 23 % 40-54 Capillary blood glucose measurement by g lucometer (mass/volume) - 06/15/19 14:44 Capillary blood glucose measurement by glucometer (mas s/volume) 157 mg/dL 70-110 Complete blood count (CBC) with automate d white blood cell (WBC) differential - 06/23/19 16:06 Blood leukocytes automated count (number/volume) 3.3 10*3/uL 4.3-11.0 Blood erythrocytes automated count (number/volume) 3.18 10*6/uL 4.35-5.85 Venous blood hemoglobin measurement (mass/volume) 7.9 g/dL 13.3-17.7 Blood hematocrit (volume fraction) 26 % 40-54 Automated erythrocyte mean corpuscular volume 82 [ foz_us] 80-99 Automated erythrocyte mean corpuscular h emoglobin (mass per erythrocyte) 25 pg 25-34 Automated erythrocyte mean corpuscular h emoglobin concentration measurement (mass/volume) 30 g/dL 32-36 Automated erythrocyte distribution width ratio 19. 6 % 10.0- 14.5 Automated blood platelet count (count/volume) 214 10*3/uL 130-400 Automated blood platelet mean volume measurement 9.9 [foz_us] 7.4-10.4 Automated blood neutrophils/100 leukocytes 72 % 42-75 Automated blood lymphocytes/100 leukocytes 12 % 12-44 Blood monocytes/100 leukocytes 15 % 0-12 Automated blood eosinophils/100 leukocytes 1 % 0-10 Automated blood basophils/100 leukocytes 1 % 0-10 Blood neutrophils automated count (number/volume) 2.4 10*3 1.8-7.8 Blood lymphocytes automated count (number/volume) 0.4 10*3 1.0-4.0 Blood monocytes automated count (number/volume) 0. 5 10*3 0.0-1.0 Automated eosinophil count 0.0 10*3/uL 0 .0-0.3 Automated blood basophil count (count/volume) 0.0 10*3/uL 0.0-0.1 Whole blood basic metabolic panel - 01/03 16:06 Serum or plasma sodium measurement (moles/volume) 143 mmol/L 135-145 Serum or plasma potassium measurement (moles/volume) 3.4 mmol/L 3.6-5.0 Serum or plasma chloride measurement (moles/volume) 99 mmol/L 98-107 Carbon dioxide 33 mmol/L 21-32 Serum or plasma anion gap determination (moles/volume) 11 mmol/L 5-14 Serum or plasma urea nitrogen measurement (mass/volume ) 31 mg/dL 7-18 Serum or plasma creatinine measurement (mass/volume) 1.52 mg/dL 0.60-1.30 Serum or plasma urea nitrogen/creatinine mass ratio 20 NRG Serum or plasma creatinine measurement w ith calculation of estimated glomerular filtration rate 45 NRG Serum or plasma glucose measurement (mass/volume) 111 mg/dL 70-105 Serum or plasma calcium measurement (mass/volume) 9.1 mg/dL 8.5-10.1 Complete urinalysis with reflex to cultu re - 06/30/19 20:44 Urine color determination YELLOW NRG Urine clarity determination SL CLOUDY N RG Urine pH measurement by test strip 7.0 5-9 Specific gravity of urine by test strip 1.010 1.016-1.022 Urine protein assay by test strip, semi-quantitative NEGATIVE NEGATIVE Urine glucose detection by automated test strip 3+ NEGATIVE Erythrocytes detection in urine sediment by light micr oscopy 2+ NEGATIVE Urine ketones detection by automated test strip NE GATIVE NEGATIVE Urine nitrite detection by test strip NEGATIVE NEGATIVE Urine total bilirubin detection by test strip NEGA TIVE NEGATIVE Urine urobilinogen measurement by automated test strip (mass/volume) 1.0 mg/dL < = 1.0 Urine leukocyte esterase detection by dipstick 1+ NEGATIVE Automated urine sediment erythrocyte cou nt by microscopy (number/high power field) [HPF] NRG Automated urine sediment leukocyte count by microscopy (number/high power field) [HPF] NRG Bacteria detection in urine sediment by light microsco py TRACE NRG Squamous epithelial cells detection in u rine sediment by light microscopy RARE NRG Crystals detection in urine sediment by light microsco py NONE NRG Casts detection in urine sediment by light microscopy NONE NRG Mucus detection in urine sediment by light microscopy NEGATIVE NRG Complete urinalysis with reflex to culture NO NRG Encounters ACCT No. Visit Date/Time Discharge Status Pt. Type Provider Facility Loc./Unit Complaint [id number] 02/27/2019 09:29:00 04/11/2019 10:12: 00 DIS Outpatient JJ JON S CHF [id number] 03/24/2019 08:58:00 03/25/2019 11:59: 00 DIS Inpatient DAYDAY JAQUEZ 00 7 ADMIT FOR CHF AFR [id number] 01/23/2019 17:30:00 01/24/2019 09:10: 00 DIS Inpatient DELORIS RAZA 007 HEART ISSUES [id number] 01/20/2019 13:06:00 01/20/2019 23:59: 59 CLS Outpatient ABRAHAM SANCHEZ [id number] 01/16/2019 13:24:00 01/16/2019 23:59: 59 CLS Outpatient ABRAHAM SANCHEZ [id number] 01/16/2019 13:58:00 01/16/2019 18:01: 00 DIS Emergency STEPHEN SEGUNDO 014 ELEVATED INR, BLOOD IN URINE, BACK PAIN, [id number] 01/09/2019 08:24:35 01/09/2019 23:59: 59 CLS Outpatient ABRAHAM SANCHEZ [id number] 01/06/2019 09:50:00 01/06/2019 23:59: 59 CLS Outpatient ABRAHAM SANCHEZ [id number] 09/02/2018 17:01:00 09/02/2018 23:59: 59 CLS Outpatient JOSÉ MIGUEL, LISANDRO [id number] [id number] 03/25/2018 10:21:00 03/25/2018 14:05: 00 DIS Outpatient LISANDRO VALDEZ 012 [id number] [id number] 01/07/2018 10:53:00 01/07/2018 13:35: 00 DIS Outpatient LISANDRO VALDEZ 012 [id number] 10/09/2017 07:36:00 10/09/2017 09:49: 00 DIS Outpatient OLLI KURTZ 01 2 [id number] 09/25/2017 11:42:00 09/25/2017 14:20: 00 DIS Outpatient LOLI KURTZ 01 2 [id number] 02/15/2017 13:20:26 02/15/2017 23:59: 59 CLS Outpatient CARI MORALSE [id number] 01/29/2017 09:52:00 01/29/2017 23:59: 59 CLS Outpatient DEONTE RUIZ [id number] 01/24/2017 09:06:00 01/24/2017 23:59: 59 CLS Outpatient DEONTE RUIZ I10 [id number] 01/03/2017 14:07:00 01/03/2017 23:59: 59 CLS Outpatient DELORIS RAZA N39.0 [id number] 10/09/2017 07:41:29 Document Registration [id number] 06/30/2019 19:30:00 21:10:00 DIS Emergency JAKE DO, STEPHANIE Holder [facility] ER HAD WALKER REMOVED TODAY ,BLEEDING [id number] 06/23/2019 15:47:00 23:59:59 CLS Outpatient SANDRA DEVI MD [facility] LAB [id number] 06/14/2019 19:43:00 15:35:00 DIS Outpatient RASHMI BROUSSARD MD Via [address] [id number] 06/13/2019 11:22:00 23:59:59 CLS Outpatient ZAHEER MIKE [facility] LAB [id number] 06/13/2019 11:19:00 23:59:59 CLS Outpatient MARITO MORGAN, SANDRA Uriostegui [facility] CARD CA P [id number] 06/12/2019 08:00:00 21:00:00 DIS Outpatient CAS LAI APRN [facility] LAB ANEMIA [id number] 05/10/2019 09:49:00 14:56:00 DIS Emergency DENIA MORGAN, MARLA Bearden [facility] ER PAIN IN BOTH LE GS [id number] 05/08/2019 12:11:00 23:59:59 CLS Outpatient CAS LAI APRN [facility] RAD FALL,EDEMA,ANTI-COAG [id number] 06/30/2019 20:49:00 Document Registration [id number] 05/02/2019 15:30:52 0 23:59:59 [facility] [id number] 02/13/2019 08:38:17 02/15/2019 23:59:5 9 DIS [id number] 12/05/2018 09:15:28 12/05/2018 23:59:5 9 CLS [facility] [id number] 09/02/2018 10:17:01 09/02/2018 23:59:5 9 CLS Out[id number] 11/05/2017 08:00:00 11/05/2017 23:59: 59 CLS Outpatient [facility] [id number] 05/08/2019 09:39:12 05/08/2019 23:59:5 9 CLS Outpatient
== END 2019-06-30 21:10 | disposition home or self-care (01) ==
LOC: EDUNIT# 19:28 → ER 19:30
DX: R33.9 Retention of urine, unspecified (principal); R31.9 Hematuria, unspecified; I50.9 Heart failure, unspecified; E11.40 Type 2 diabetes mellitus with diabetic neuropathy, unspecified; Z95.1 Presence of aortocoronary bypass graft; Z85.46 Personal history of malignant neoplasm of prostate; Z95.5 Presence of coronary angioplasty implant and graft
CPT/HCPCS: 51702; 81000

== ENCOUNTER → 2019-06-30 | Outpatient (CLI) | payer MEDICARE, BC ==
[~2019-06-30] MED LIST changes: +BUME2TAB7; +DIGO125T3; +EMPA10TA; +LEVO25TA5; +MIDO10TA
[2019-06-30 08:43] LABS: BASOPHILS % (AUTO) 1 % (0-10); EOSINOPHILS # (AUTO) 0.1 10^3/uL (0.0-0.3); EOSINOPHILS % (AUTO) 1 % (0-10); HEMATOCRIT 28 % (40-54); HEMOGLOBIN 8.5 G/DL (13.3-17.7); LYMPHOCYTES # (AUTO) 0.4 X 10^3 (1.0-4.0); LYMPHOCYTES % (AUTO) 10 % (12-44); MEAN CORPUSCULAR HEMOGLOBIN 25 PG (25-34); MEAN CORPUSCULAR HGB CONC 31 G/DL (32-36); MEAN CORPUSCULAR VOLUME 81 FL (80-99); MEAN PLATELET VOLUME 10.9 FL (7.4-10.4); MONOCYTES # (AUTO) 0.4 X 10^3 (0.0-1.0); MONOCYTES % (AUTO) 11 % (0-12); NEUTROPHILS # (AUTO) 3.3 X 10^3 (1.8-7.8); NEUTROPHILS % (AUTO) 77 % (42-75); PLATELET COUNT 234 10^3/uL (130-400); RED CELL DISTRIBUTION WIDTH 18.7 % (10.0-14.5); WHITE BLOOD COUNT 4.2 10^3/uL (4.3-11.0)
== END ==
LOC: LAB 08:14
PROVIDERS: ATTEND Nurse Practitioner Family
DX: D64.9 Anemia, unspecified (principal)
CPT/HCPCS: 36415; 85025

== ENCOUNTER 2019-07-03 04:50 | Observation (INO) | payer MEDICARE, BC ==
[~2019-07-03] VITALS: Ht 175.3 cm; Wt 60.0 kg
[~2019-07-03 04:50] MED LIST changes: +BUME2TAB7 PO; +DIGO125T3 PO; +EMPA10TA PO; +LEVO25TA5 PO; +MIDO10TA PO
--- OUTSIDE RECORDS SUMMARY | 2019-07-03 04:57 | XMS REPORT | Continuity of Care Document ---
Author Organization Unknown Address Unknown Phone Unavailable Allergies Active Description Code Type Severity Reaction Onset Reported/Identified Relationship to Patient Clinical Status Yes No Known Allergies [id number] Miscellaneous Allergy Moderate N/A Yes No Known Medication Allergies ##NOMEN##,AL1,ceStruct,allergy,[id number] Unknown N/A N/A Yes No Known Drug Allergies [id number] Drug Allergy Unknown N/A 06/30/2019 Medications Medication [...] E7800 Pure hypercholesterolemia, unspecified 09/25/2017 LOLI KURTZ X33600 Combined forms of age-related cataract, left eye 09/25/2017 LOLI KURTZ I10 Essential (primary) hypertension 09/25/2017 LOLI KURTZ N400 Benign prostatic hyperplasia without lower urinary tract symptoms 09/25/2017 LOLI KURTZ R569 Unspecified convulsions 09/25/2017 LOLI KURTZ D11237 Personal history of nicotine dependence 10/09/2017 LOLI KURTZ E7800 Pure hypercholesterolemia, unspecified 10/09/2017 LOLI KURTZ V11249 Combined forms of age-related cataract, right eye 10/09/2017 LOLI KURTZ I10 Essential (primary) hypertension 10/09/2017 LOLI KUTRZ N400 Benign prostatic hyperplasia without lower urinary tract symptoms 10/09/2017 LOLI KURTZ R569 Unspecified convulsions 10/09/2017 LOLI KURTZ I45257 Personal history of nicotine dependence 01/07/2018 LISANDRO VALDEZ C61 Malignant neoplasm of prostate 01/07/2018 LISANDRO VALDEZ R9720 Elevated prostate specific antigen [PSA] 01/07/2018 LISANDRO VALDEZ X81825 Personal history of nicotine dependence 03/25/2018 LISANDRO VALDEZ C61 Malignant neoplasm of prostate 03/25/2018 LISANDRO VALDEZ Q57042 Personal history of nicotine dependence 09/02/2018 LISANDRO VALDEZ R399 Unspecified symptoms and signs involving the genitourinary system 01/06/2019 ABRAHAM SANCHEZ I4891 Unspecified atrial fibrillation 01/06/2019 ABRAHAM SANCHEZ Z7901 keno terminal operator (current) use of anticoagulants 01/09/2019 ABRAHAM SANCHEZ I4891 Unspecified atrial fibrillation 01/09/2019 ABRAHAM SANCHEZ Z7901 keno terminal operator (current) use of anticoagulants 01/16/2019 ABRAHAM SANCHEZ I4891 Unspecified atrial fibrillation 01/16/2019 ABRAHAM SANCHEZ Z7901 correction (current) use of anticoagulants 01/16/2019 STEPHEN SEGUNDO N S I48 91 Unspecified atrial fibrillation 01/16/2019 STEPHEN SEGUNDO N P N30 91 Cystitis, unspecified with hematuria 01/16/2019 STEPHEN SEGUNDO N S R79 1 Abnormal coagulation profile 01/20/2019 ABRAHAM SANCHEZ I4891 Unspecified atrial fibrillation 01/20/2019 ABRAHAM SANCHEZ Z7901 keno terminal operator (current) use of anticoagulants 01/24/2019 DELORIS RAZA E1 19 Type 2 diabetes mellitus without complications 01/24/2019 DELORIS RAZA E7 800 Pure hypercholesterolemia, unspecified 01/24/2019 DELORIS RAZA L31587 Epilepsy, unspecified, not intractable, without status epilepticus 01/24/2019 DELORIS RAZA I1 10 Hypertensive heart disease with heart failure 01/24/2019 DELORIS RAZA 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 01/24/2019 [...] for immunization 01/24/2019 DELORIS RAZA Z7 901 keno terminal operator (current) use of anticoagulants 01/24/2019 DELORIS RAZA Z7 984 keno terminal operator (current) use of oral hypoglycemic drugs 01/24/2019 DELORIS RAZA Z8 546 Personal history of malignant neoplasm of prostate 01/24/2019 DELORIS RAZA L50918 Personal history of nicotine dependence 01/24/2019 DELORIS RAZA Z9 049 Acquired absence of other specified parts of digestive tract 01/24/2019 DELORIS RAZA Z9 51 Presence of aortocoronary bypass graft 01/24/2019 DELORIS RAZA X76868 Presence of automatic (implantable) cardiac defibrilla tor 01/24/2019 DELORIS RAZA U57763 Other specified postprocedural states 03/07/2019 JON GARDNER I2510 Atherosclerotic heart disease of [place] coronary artery without angina pectoris 03/07/2019 JON GARDNER P 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 03/25/2019 DAYDAY JAQUEZ D649 Anemia, unspecified 03/25/2019 DAYDAY JAQUEZ 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 03/25/2019 DAYDAY JAQUEZ E7800 Pure hypercholesterolemia, unspecified 03/25/2019 ROSAM DAYDAY S E782 Mixed hyperlipidemia 03/25/2019 DAYDAY JAQUEZ W16971 Epilepsy, unspecified, not intractable, without status epilepticus 03/25/2019 DAYDAY JAQUEZ I130 Hypertensive heart and chronic kidney disease with heart failure and stage 1 through stage 4 chronic kidney disease, or unspecified chronic kidney disease 03/25/2019 DAYDAY JAQUEZ I2510 Atherosclerotic heart disease of [place] coronary artery without angina pectoris 03/25/2019 DAYDAY [...] blood chemistry 03/25/2019 RANSOM, DAYDAY S Z7901 keno terminal operator (current) use of anticoagulants 03/25/2019 RANSOM, DAYDAY S Z7984 correction (current) use of oral hypoglycemic drugs 03/25/2019 RANSOM, DAYDAY S Z8546 Personal history of malignant neoplasm of prostate 03/25/2019 RANSOM, DAYDAY S W22640 Personal history of nicotine dependence 03/25/2019 RANSOM, DAYDAY S Z9049 Acquired absence of other specified parts of digestive tract 03/25/2019 RANSOM, DAYDAY S Z951 Presence of aortocoronary bypass graft 03/25/2019 RANSOM, DAYDAY S K27332 Presence of automatic (implantable) cardiac defibrillator 03/25/2019 RANSOM, DAYDAY S I96192 Other specified postprocedural states 04/11/2019 JON GARDNER S S I2510 Atherosclerotic heart disease of [place] coronary artery without angina pectoris 04/11/2019 JON [...] 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.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 05/10/2019 MARLA LOZA MD Ot F41.9 ANXIETY [...] SPECIF 05/10/2019 MARLA LOZA MD, Ot Z79.01 HIDE SELECTOR (CURRENT) USE OF ANTICOAGULANT 05/10/2019 MARLA LOZA [...] W19.XXXA UNSPECIFIED FALL, INITIAL ENCOUNTER 05/12/2019 CAS LAI APRN Ot Z79.01 HIDE SELECTOR (CURRENT) USE OF ANTICOAGULANT 05/12/2019 CAS LAI APRN Ot Z95.828 PRESENCE OF OTHER VASCULAR IMPLANTS AND 05/13/2019 MARLA LOZA MD Ot D64.9 ANEMIA, UNSPECIFIED 05/13/2019 MARLA LOZA MD Ot E11.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 05/13/2019 MARLA LOZA MD Ot F41.9 ANXIETY [...] SPECIF 05/13/2019 MARLA LOZA MD, Ot Z79.01 USP (CURRENT) USE OF ANTICOAGULANT 05/13/2019 MARLA LOZA [...] OF SCALP, INITIAL ENCOUNTER 05/14/2019 CAS LAI PIT AND AUXILIARIES SUPERVISOR Ot W19.XXXA UNSPECIFIED FALL, INITIAL ENCOUNTER 05/14/2019 CAS LAI PIT AND AUXILIARIES SUPERVISOR Ot Z79.01 HIDE SELECTOR (CURRENT) USE OF ANTICOAGULANT 05/14/2019 CAS LAI PIT AND AUXILIARIES SUPERVISOR Ot Z95.828 PRESENCE OF OTHER VASCULAR IMPLANTS AND 06/05/2019 CAS LAI PIT AND AUXILIARIES SUPERVISOR Ot C6 1 MALIGNANT NEOPLASM OF PROSTATE 06/05/2019 CAS LAI PIT AND AUXILIARIES SUPERVISOR Ot I50.9 HEART FAILURE, UNSPECIFIED 06/05/2019 CAS LAI PIT AND AUXILIARIES SUPERVISOR Ot N1 9 UNSPECIFIED KIDNEY FAILURE 06/05/2019 CAS LAI PIT AND AUXILIARIES SUPERVISOR Ot S00.03XA CONTUSION OF SCALP, INITIAL ENCOUNTER 06/05/2019 CAS LAI APRN Ot W19.XXXA UNSPECIFIED FALL, INITIAL ENCOUNTER 06/05/2019 CAS LAI PIT AND AUXILIARIES SUPERVISOR Ot Z79.01 HIDE SELECTOR (CURRENT) USE OF ANTICOAGULANT 06/05/2019 CAS LAI PIT AND AUXILIARIES SUPERVISOR Ot Z95.828 PRESENCE OF OTHER VASCULAR IMPLANTS AND 06/11/2019 CAS LAI PIT AND AUXILIARIES SUPERVISOR Ot C6 1 MALIGNANT NEOPLASM OF PROSTATE 06/11/2019 CAS LAI PIT AND AUXILIARIES SUPERVISOR Ot I50.9 HEART FAILURE, UNSPECIFIED 06/11/2019 CAS LAI APRN Ot N1 9 UNSPECIFIED KIDNEY FAILURE 06/11/2019 CAS LAI PIT AND AUXILIARIES SUPERVISOR Ot S00.03XA CONTUSION OF SCALP, INITIAL ENCOUNTER 06/11/2019 CAS LAI PIT AND AUXILIARIES SUPERVISOR Ot W19.XXXA UNSPECIFIED FALL, INITIAL ENCOUNTER 06/11/2019 CAS LAI PIT AND AUXILIARIES SUPERVISOR Ot Z79.01 HIDE SELECTOR (CURRENT) USE OF ANTICOAGULANT 06/11/2019 CAS LAI PIT AND AUXILIARIES SUPERVISOR Ot Z95.828 PRESENCE OF OTHER VASCULAR IMPLANTS AND 06/12/2019 CAS LAI PIT AND AUXILIARIES SUPERVISOR Ot D64.9 ANEMIA, UNSPECIFIED 06/12/2019 CAS LAI PIT AND AUXILIARIES SUPERVISOR Ot D64.9 ANEMIA, UNSPECIFIED 06/12/2019 CAS LAI PIT AND AUXILIARIES SUPERVISOR Ot D64.9 ANEMIA, UNSPECIFIED 06/12/2019 CAS LAI PIT AND AUXILIARIES SUPERVISOR Ot D64.9 ANEMIA, UNSPECIFIED 06/12/2019 CAS LAI PIT AND AUXILIARIES SUPERVISOR Ot D64.9 ANEMIA, UNSPECIFIED 06/13/2019 CAS LAI PIT AND AUXILIARIES SUPERVISOR Ot D64.9 ANEMIA, UNSPECIFIED 06/13/2019 W C61 [...] Hospit al discharge follow-up Cas Lai 06/15/2019 AARTI MORGAN, RASHMI Uriostegui Ot B37.49 OTHER UROGENITAL CANDIDIASIS 06/15/2019 AARTI MORGAN, RASHMI Uriostegui Ot B96.20 UNSP ESCHERICHIA COLI THE CAUSE OF DI 06/15/2019 RASHMI MURDOCK MD Ot D6 2 ACUTE POSTHEMORRHAGIC ANEMIA 06/15/2019 RASHMI MURDOCK MD Ot E11.40 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 MELLITUS WITH DIABETIC N 06/15/2019 RASHMI MURDOCK MD Ot E78.00 PURE HYPERCHOLESTEROLEMIA, UNSPECIFIED 06/15/2019 RASHMI MURDOCK MD Ot G40.909 EPILEPSY, UNSP, NOT INTRACTABLE, WITHOUT 06/15/2019 RASHMI MURDOCK MD Ot I25.10 ATHSCL HEART DISEASE OF [place] CORONARY 06/15/2019 AARTI MORGAN, RASHMI Uriostegui Ot I48.91 UNSPECIFIED ATRIAL FIBRILLATION 06/15/2019 RASHMI MURDOCK MD Ot I50.9 HEART FAILURE, UNSPECIFIED 06/15/2019 RASHMI MURDOCK MD Ot I95.9 HYPOTENSION, UNSPECIFIED 06/15/2019 RASHMI MURDOCK MD Ot N32.9 BLADDER DISORDER, UNSPECIFIED 06/15/2019 RASHMI MURDOCK MD Ot N39.0 URINARY TRACT INFECTION, SITE NOT SPECIF 06/15/2019 RASHMI MURDOCK MD Ot R31.0 GROSS HEMATURIA 06/15/2019 RASHMI MURDOCK MD Ot Z85.46 PERSONAL HISTORY OF MALIGNANT NEOPLASM O 06/15/2019 RASHMI MURDOCK MD Ot Z87.891 PERSONAL HISTORY OF NICOTINE DEPENDENCE 06/15/2019 RASHMI MURDOCK MD Ot Z90.49 ACQUIRED ABSENCE OF OTHER SPECIFIED PART 06/15/2019 RASHMI MURDOCK MD Ot Z95.1 PRESENCE OF AORTOCORONARY BYPASS GRAFT 06/15/2019 RASHMI MURDOCK MD Ot Z95.5 PRESENCE OF CORONARY ANGIOPLASTY IMPLANT 06/16/2019 MARITO MORGAN, SANDRA Uriostegui Ot C61 MALIGNANT NEOPLASM OF PROSTATE 06/16/2019 MARITO MORGAN, SANDRA Uriostegui Ot N32.9 BLADDER DISORDER, UNSPECIFIED 06/16/2019 SANDRA DEVI MD Ot C61 MALIGNANT NEOPLASM OF PROSTATE 06/16/2019 MARITO MORGAN, SANDRA Uriostegui Ot N32.9 BLADDER DISORDER, UNSPECIFIED 06/17/2019 MARITO MORGAN, SANDRA Uriostegui Ot C61 MALIGNANT NEOPLASM OF PROSTATE 06/17/2019 MARITO MORGAN, SANDRA Uriostegui Ot N32.9 BLADDER DISORDER, UNSPECIFIED 06/17/2019 ZAHEER MIKE Ot Z01.89 ENCOUNTER FOR OTHER SPECIFIED SPECIAL EX 06/30/2019 W D50.0 Iron deficiency anemia due to chronic blood loss Aarti Rashmi 06/30/2019 W I48.11 Med gstanding persistent atrial fibrillation Aarti Rashmi 06/30/2019 W N18.5 Stag e 5 chronic kidney disease not on chronic dialysis [place] Rashmi 07/01/2019 Ot D64.9 ANEM IA, UNSPECIFIED Procedures There is no data. Results Test [...] R NRG Whole blood hemoglobin and hematocrit [facility] 06/11/19 15:58 Venous blood hemoglobin measurement (mass/volume) 6.6 g/dL 13.3-17.7 Blood hematocrit (volume fraction) 21 % 40-54 RED CELLS LEUKO REDUCED AS1 - 06/11/19 1 5:58 RED CELLS LEUKO REDUCED AS1 T RANSFUSED 06/12/19 1141 NRG Blood type T Indirect antibody screen [facility] 06/11/19 15:58 WRISTBAND NUMBER [id number] NRG ABO+Rh group AN NRG Blood group antibody screen NEGATIVE NR G Whole blood hemoglobin and hematocrit [facility] 06/12/19 14:40 Venous blood hemoglobin measurement (mass/volume) 6.9 g/dL 13.3-17.7 Blood hematocrit (volume fraction) 21 % 40-54 Whole blood hemoglobin and hematocrit [facility] 06/12/19 15:02 Venous blood hemoglobin measurement (mass/volume) 7.5 g/dL 13.3-17.7 Blood hematocrit (volume fraction) 23 % 40-54 Whole blood hemoglobin and hematocrit [facility] 06/12/19 18:20 Venous blood hemoglobin measurement (mass/volume) 8.6 g/dL 13.3-17.7 Blood hematocrit (volume fraction) 26 % 40-54 Whole blood hemoglobin and hematocrit [facility] 06/13/19 11:45 Venous blood hemoglobin measurement (mass/volume) [...] pa harvinder - 06/14/19 18:19 WRISTBAND NUMBER [id number] NRG ABO+Rh group AN NRG Blood group [...] culture - 06/14/19 22:10 Bacterial urine culture [id number] NRG COLONY COUNT >100,000/ML NRG FREE TEXT [...] Status Pt. Type Provider Facility Loc./Unit Complaint [id number] 02/27/2019 09:29:00 04/11/2019 10:12: 00 DIS Outpatient JON GARDNER CHF [id number] 03/24/2019 08:58:00 03/25/2019 11:59: 00 DIS Inpatient DAYDAY JAQUEZ 00 7 ADMIT FOR CHF AFR [id number] 01/23/2019 17:30:00 01/24/2019 09:10: 00 DIS Inpatient DELORIS RAZA 007 HEART ISSUES [id number] 01/20/2019 13:06:00 01/20/2019 23:59: 59 CLS Outpatient ABRAHAM SANCHEZ [id number] 01/16/2019 13:24:00 01/16/2019 23:59: 59 CLS Outpatient ABRAHAM SANCHEZ [id number] 01/16/2019 13:58:00 01/16/2019 18:01: 00 DIS Emergency STEPHEN SEGUNDO 014 ELEVATED INR, BLOOD IN URINE, BACK PAIN, [id number] 01/09/2019 08:24:35 01/09/2019 23:59: 59 CLS Outpatient ABRAHAM SANCHEZ [id number] 01/06/2019 09:50:00 01/06/2019 23:59: 59 CLS Outpatient ABRAHAM SANCHEZ [id number] 09/02/2018 17:01:00 09/02/2018 23:59: 59 CLS Outpatient LISANDRO VALDEZ [id number] [id number] 03/25/2018 10:21:00 03/25/2018 14:05: 00 DIS Outpatient LISANDRO VALDEZ 012 [id number] [id number] 01/07/2018 10:53:00 01/07/2018 13:35: 00 DIS Outpatient LISANDRO VALDEZ 012 [id number] [id number] 10/09/2017 07:36:00 10/09/2017 09:49: 00 DIS Outpatient LOLI KURTZ 2 [id number] 09/25/2017 11:42:00 09/25/2017 14:20: 00 DIS Outpatient LOLI KURTZ 2 [id number] 02/15/2017 13:20:26 02/15/2017 23:59: 59 CLS Outpatient CARI MORALES [id number] 01/29/2017 09:52:00 01/29/2017 23:59: 59 CLS Outpatient DEONTE RUIZ [id number] [id number] 01/24/2017 09:06:00 01/24/2017 23:59: 59 CLS Outpatient DEONTE RUIZ I10 [id number] 01/03/2017 14:07:00 01/03/2017 23:59: 59 CLS Outpatient DELORIS RAZA N39.0 [id number] 10/09/2017 07:41:29 Document Registration [id number] 06/30/2019 19:30:00 21:10:00 DIS Emergency JAKE DO, STEPHANIE K Vi a [facility] ER HAD WALKER REMOVED TODAY ,BLEEDING [id number] 06/23/2019 15:47:00 23:59:59 CLS Outpatient SANDRA DEVI MD Via [facility] LAB [id number] 06/14/2019 19:43:00 15:35:00 DIS Outpatient RASHMI MURDOCK MD Via [address] HEMATURIA [id number] 06/13/2019 11:22:00 23:59:59 CLS Outpatient ZAHEER MIKE [facility] LAB [id number] 06/13/2019 11:19:00 23:59:59 CLS Outpatient MARITO MORGAN, SANDRA Uriostegui Via [facility] CARD CA P [id number] 06/12/2019 08:00:00 21:00:00 DIS Outpatient CAS LAI APRN Via [facility] LAB ANEMIA [id number] 05/10/2019 09:49:00 14:56:00 DIS Emergency DENIA MORGAN, MARLA Bearden Via [facility] ER PAIN IN BOTH LE GS [id number] 05/08/2019 12:11:00 23:59:59 CLS Outpatient CAS LAI APRN Via [facility] RAD FALL,EDEMA,ANTI-COAG [id number] 06/30/2019 20:49:00 Document Registration [id number] 05/02/2019 15:30:52 0 23:59:59 [facility] LAWCO [id number] 02/13/2019 08:38:17 02/15/2019 23:59:5 9 [facility] [id number] 12/05/2018 09:15:28 12/05/2018 23:59:5 9 [facility] [id number] 09/02/2018 10:17:01 09/02/2018 23:59:5 9 [facility] [id number] 11/05/2017 08:00:00 11/05/2017 23:59: 59 CLS Outpatient David Lawson [facility] [id number] 05/08/2019 09:39:12 05/08/2019 23:59:5 9 CLS Outpatient
[2019-07-03] MEDS ORDERED: METF-397 PO (05:05)
[2019-07-03 05:32] LABS: BASOPHILS % (AUTO) 1 % (0-10); EOSINOPHILS # (AUTO) 0.1 10^3/uL (0.0-0.3); EOSINOPHILS % (AUTO) 2 % (0-10); HEMATOCRIT 25 % (40-54); HEMOGLOBIN 7.5 G/DL (13.3-17.7); LYMPHOCYTES # (AUTO) 0.5 X 10^3 (1.0-4.0); LYMPHOCYTES % (AUTO) 16 % (12-44); MEAN CORPUSCULAR HEMOGLOBIN 24 PG (25-34); MEAN CORPUSCULAR HGB CONC 31 G/DL (32-36); MEAN CORPUSCULAR VOLUME 79 FL (80-99); MEAN PLATELET VOLUME 11.1 FL (7.4-10.4); MONOCYTES # (AUTO) 0.4 X 10^3 (0.0-1.0); MONOCYTES % (AUTO) 13 % (0-12); NEUTROPHILS # (AUTO) 2.2 X 10^3 (1.8-7.8); NEUTROPHILS % (AUTO) 69 % (42-75); PLATELET COUNT 249 10^3/uL (130-400); WHITE BLOOD COUNT 3.2 10^3/uL (4.3-11.0)
[2019-07-03 05:39] LABS: BILIRUBIN,URINE 2+ (NEGATIVE); CLARITY,URINE OTHER; COLOR,URINE RED; GLUCOSE, URINE (UA) 1+ (NEGATIVE); KETONES,URINE TRACE (NEGATIVE); LEUKOCYTE ESTERASE ,URINE 3+ (NEGATIVE); NITRITE,URINE POSITIVE (NEGATIVE); PROTEIN,URINE 3+ (NEGATIVE)
[2019-07-03 05:47] LABS: BACTERIA,URINE NEGATIVE /HPF; RBC,URINE TNTC /HPF; SQUAMOUS EPITHELIAL CELL,UR 0-2 /HPF
[2019-07-03 05:48] LABS: WBC,URINE 50-100 /HPF
[2019-07-03 05:53] LABS: CALCIUM 9.2 MG/DL (8.5-10.1); CREATININE SERUM 1.3 MG/DL (0.60-1.30); POTASSIUM 3.2 MMOL/L (3.6-5.0)
--- NOTE | 2019-07-03 05:53 | ED GU-Male ---
General Chief Complaint: - Urinary Stated Complaint: BLOOD IN URINE FROM CATH Nursing Triage Note: BLOOD IN URINE Source: patient, old records Exam Limitations: no limitations History of Present Illness Date Seen by Provider: Jul 03, 2019 Time Seen by Provider: 05:03 Initial Comments This 78-year-old gentleman anticoagulated with a Eliquis for atrial fibrillation presents to the emergency room with gross hematuria since 17:00 last night. He had been admitted to the hospital on May and transferred to [facility] for hematuria and suspected bladder mass. He reports the suspected mass was actually clot lining the bladder. This was evacuated. While he was at [facility] he also had repair of a urethral tear. He has been performing self catheterization 3 years resulting in the tear. He was discharged from [facility] with a catheter in place. He followed up with Dr. Escobar on June 29 and the catheter was removed. He presented to the ER later that night with more bleeding in the catheter was replaced. Urine was clear until last night. He denies any pain. He has had significant edema be a and has required transfusion because of this problem. He took a dose of Eliquis on Sunday night and Sunday morning. He did not take a dose of Eliquis last night because of the bleeding. He continues to have very gross hematuria this morning despite stopping Eliquis. He denies any secondary symptoms of anemia such as lightheadedness or shortness of breath. His primary care providers Dr. Broussard. His urologist is Dr. Escobar. He is establishing with Dr. Eng for cardiology. Allergies and Home Medications Allergies Coded Allergies: No Known Drug Allergies (Unverified , 06/30/19) Patient Home Medication List Home Medication List Reviewed: Yes Review of Systems Review of Systems Constitutional: no symptoms reported EENTM: no symptoms reported Respiratory: no symptoms reported Cardiovascular: no symptoms reported Gastrointestinal: no symptoms reported Genitourinary: see HPI Musculoskeletal: no symptoms reported Skin: no symptoms reported Psychiatric/Neurological: No Symptoms Reported Endocrine: No Symptoms Reported Hematologic/Lymphatic: See HPI Past Qpryhlm-Xviwep-Fizwwg Hx Past Med/Social Hx: Reviewed Nursing Past Med/Soc Hx Patient Social History Alcohol Use: Denies Use Recreational Drug Use: No Smoking Status: Former Smoker Former Smoker, Quit: Apr 30, 1967 2nd Hand Smoke Exposure: No Recent Foreign Travel: No Contact w/Someone Who Travel: No Recent Infectious Disease Expo: No Recent Hopitalizations: No Physical Abuse: No Sexual Abuse: No Mistreated: No Fear: No Immunizations Up To Date Date of Pneumonia Vaccine: May 17, 2016 Date of Influenza Vaccine: Jan 14, 2019 Seasonal Allergies Seasonal Allergies: No Past Medical History Surgeries: Yes Appendectomy, Cardiac, CABG, Coronary Stent, Dialysis, Nose Respiratory: Yes (CHF) Cardiac: Yes Atrial Fibrillation, Chronic Edema/Swelling, Coronary Artery Disease, High Cholesterol, Hypertension Neurological: Yes Neuropathy, Seizure Disorder Genitourinary: Yes (recurrent hematuria) Prostate Problems, Renal Failure, Dialysis (no longer requires dialysis) Gastrointestinal: No Musculoskeletal: No Endocrine: Yes Diabetes, Non-Insulin dep HEENT: No Cancer: Yes Prostate What Type of Treatment Did You: Radiation Psychosocial: No Integumentary: No Blood Disorders: Yes (chronic anemia) Adverse Reaction/Blood Tranf: No Family Medical History Reviewed Nursing Family Hx No Pertinent Family Hx Physical Exam Vital Signs Vital Signs - First Documented 07/03/19 04:58 Temp 36.5 Pulse 73 Resp 16 B/P (MAP) 96/52 (67) Pulse Ox 98 O2 Delivery Room Air Capillary Refill : Less Than 3 Seconds Height, Weight, BMI Height: '" Weight: lbs. oz. kg; 19.00 BMI Method: General Appearance: WD/WN, no apparent distress HEENT: normal ENT inspection Neck: normal inspection Cardiovascular: regular rate, rhythm, no edema, no murmur Respiratory: lungs clear, normal breath sounds, no respiratory distress Gastrointestinal: normal bowel sounds, non tender, soft Extremities: swelling, other (minor wounds dressed with Band-Aids) Neurologic/Psychiatric: instrumentation and controls designer II-XII nml as tested, no motor/sensory deficits, alert, normal mood/affect, oriented x 3 Skin: normal color, warm/dry, other (minor wounds on lower extremities) Progress/Results/Core Measures Suspected Sepsis Recent Fever Within 48 Hours: No Infection Criteria Present: None New/Unexplained Altered Menta: No Sepsis Screen: No Definite Risk SIRS Temperature: Pulse: 73 Respiratory Rate: 16 Laboratory Tests 07/03/19 05:20: White Blood Count 3.2L Blood Pressure 96 /52 Mean: 67 Laboratory Tests 07/03/19 05:14: Creatinine 1.30 07/03/19 05:20: Platelet Count 249 Results/Orders Lab Results Laboratory Tests Test 07/03/19 05:14 07/03/19 05:20 Range/Units Urine Color RED H Urine Clarity OTHER Urine pH 7.0 5-9 Urine Specific [place] <=1.005 1.016-1.022 Urine Protein 3+ H NEGATIVE Urine Glucose (UA) 1+ H NEGATIVE Urine Ketones TRACE H NEGATIVE Urine Nitrite POSITIVE H NEGATIVE Urine Bilirubin 2+ H NEGATIVE Urine Urobilinogen 2.0 < = 1.0 MG/DL Urine Leukocyte Esterase 3+ H NEGATIVE Urine RBC (Auto) 3+ H NEGATIVE Urine RBC TNTC H /HPF Urine WBC 50-100 H /HPF Urine Squamous Epithelial Cells 0-2 /HPF Urine Crystals NONE /LPF Urine Bacteria NEGATIVE /HPF Urine Casts NONE /LPF Urine Mucus SMALL H /LPF Urine Culture Indicated YES Sodium Level 141 135-145 MMOL/L Potassium Level 3.2 L 3.6-5.0 MMOL/L Chloride Level 97 L 98-107 MMOL/L Carbon Dioxide Level 32 21-32 MMOL/L Anion Gap 12 5-14 MMOL/L Blood Urea Nitrogen 32 H 7-18 MG/DL Creatinine 1.30 0.60-1.30 MG/DL Estimat Glomerular Filtration Rate 54 BUN/Creatinine Ratio 25 Glucose Level 104 70-105 MG/DL Calcium Level 9.2 8.5-10.1 MG/DL White Blood Count 3.2 L 4.3-11.0 10^3/uL Red Blood Count 3.12 L 4.35-5.85 10^6/uL Hemoglobin 7.5 L 13.3-17.7 G/DL Hematocrit 25 L 40-54 % Mean Corpuscular Volume 79 L 80-99 FL Mean Corpuscular Hemoglobin 24 L 25-34 PG Mean Corpuscular Hemoglobin Concent 31 L 32-36 G/DL Red Cell Distribution Width 18.0 H 10.0-14.5 % Platelet Count 249 130-400 10^3/uL Mean Platelet Volume 11.1 H 7.4-10.4 FL Neutrophils (%) (Auto) 69 42-75 % Lymphocytes (%) (Auto) 16 12-44 % Monocytes (%) (Auto) 13 H 0-12 % Eosinophils (%) (Auto) 2 0-10 % Basophils (%) (Auto) 1 0-10 % Neutrophils # (Auto) 2.2 1.8-7.8 X 10^3 Lymphocytes # (Auto) 0.5 L 1.0-4.0 X 10^3 Monocytes # (Auto) 0.4 0.0-1.0 X 10^3 Eosinophils # (Auto) 0.1 0.0-0.3 10^3/uL Basophils # (Auto) 0.0 0.0-0.1 10^3/uL My Orders Orders - MARLA LOZA MD Ua Culture If Indicated (07/03/19 05:06) Basic Metabolic Panel (07/03/19 05:17) Cbc With Automated Diff (07/03/19 05:17) Ed Iv/Invasive Line Start (07/03/19 05:17) Urine Culture (07/03/19 05:14) Type And Screen (07/03/19 06:40) Ceftriaxone For Iv Use (Rocephin For I (07/03/19 06:45) Vital Signs/I&O 07/03/19 04:58 Temp 36.5 Pulse 73 Resp 16 B/P (MAP) 96/52 (67) Pulse Ox 98 O2 Delivery Room Air Capillary Refill : Less Than 3 Seconds Blood Pressure Mean: 67 Progress Note : Progress Note Patient continued to have gross hematuria. Urine was suggestive of infection with nitrite presents. Case was discussed with Dr. Escobar and Dr. Broussard. The decision was to admit for observation to ensure bleeding stays under control and he does not need a transfusion. I gram of Rocephin is being administered. Departure Communication (Admissions) Time/Spoke to Admitting Phy: 06:50 Dr. Broussard Time/Spoke to Consulting Phy: 06:45 Dr. Escobar Impression Primary Impression: Gross hematuria Additional Impressions: Anemia Qualified Codes: D64.9 - Anemia, unspecified Urinary tract infection Qualified Codes: N39.0 - Urinary tract infection, site not specified Hypokalemia Disposition: ADMITTED INPATIENT Condition: Stable Admissions Decision to Admit Reason: Admit from ER (General) Decision to Admit/Date: Jul 03, 2019 Time/Decision to Admit Time: 06:45 Departure-Patient Inst. Referrals: RASHMI BROUSSARD MD (PCP/Family) Primary Care Physician MARLA LOZA MD Jul 03, 2019 05:53
[2019-07-03] MEDS ORDERED: cefTRIAXone FOR IV USE 1,000 MG in WATER (STERILE) FOR INJECTION 10 ML IV ONE (06:45)
[2019-07-03] MEDS ORDERED: KCL 10 MEQ TAB (MICRO K) PO ONE (07:00)
--- OUTSIDE RECORDS SUMMARY | 2019-07-03 07:05 | XMS REPORT | Continuity of Care Document ---
Author Organization Unknown Address Unknown Phone Unavailable Allergies Active Description Code Type Severity Reaction Onset Reported/Identified Relationship to Patient Clinical Status Yes No Known Allergies [id number] Miscellaneous Allergy Moderate N/A Yes No Known Medication Allergies ##NOMEN##,AL1,ceStruct,allergy,[id number] Unknown N/A N/A Yes No Known Drug Allergies [id number] Drug Allergy Unknown N/A 06/30/2019 Medications Medication [...] E7800 Pure hypercholesterolemia, unspecified 09/25/2017 LOLI KURTZ N24254 Combined forms of age-related cataract, left eye 09/25/2017 LOLI KURTZ I10 Essential (primary) hypertension 09/25/2017 LOLI KURTZ N400 Benign prostatic hyperplasia without lower urinary tract symptoms 09/25/2017 LOLI KURTZ R569 Unspecified convulsions 09/25/2017 LOLI KURTZ I20744 Personal history of nicotine dependence 10/09/2017 LOLI KURTZ E7800 Pure hypercholesterolemia, unspecified 10/09/2017 LOIL KURTZ S61438 Combined forms of age-related cataract, right eye 10/09/2017 LOLI KURTZ I10 Essential (primary) hypertension 10/09/2017 LOLI KURTZ N400 Benign prostatic hyperplasia without lower urinary tract symptoms 10/09/2017 LOLI KURTZ R569 Unspecified convulsions 10/09/2017 LOLI KURTZ N78218 Personal history of nicotine dependence 01/07/2018 LISANDRO VALDEZ C61 Malignant neoplasm of prostate 01/07/2018 LISANDRO VALDEZ R9720 Elevated prostate specific antigen [PSA] 01/07/2018 LISANDRO VALDEZ U85460 Personal history of nicotine dependence 03/25/2018 LISANDRO VALDEZ C61 Malignant neoplasm of prostate 03/25/2018 LISANDRO VALDEZ L57737 Personal history of nicotine dependence 09/02/2018 LISANDRO VALDEZ R399 Unspecified symptoms and signs involving the genitourinary system 01/06/2019 ABRAHAM SANCHEZ I4891 Unspecified atrial fibrillation 01/06/2019 ABRAHAM SANCHEZ Z7901 polisher sand (current) use of anticoagulants 01/09/2019 ABRAHAM SANCHEZ I4891 Unspecified atrial fibrillation 01/09/2019 ABRAHAM SANCHEZ Z7901 polisher sand (current) use of anticoagulants 01/16/2019 ABRAHAM SANCHEZ I4891 Unspecified atrial fibrillation 01/16/2019 ABRAHAM SANCHEZ Z7901 retirement (current) use of anticoagulants 01/16/2019 STEPHEN SEGUNDO N S I48 91 Unspecified atrial fibrillation 01/16/2019 STEPHEN SEGUNDO N P N30 91 Cystitis, unspecified with hematuria 01/16/2019 STEPHEN SEGUNDO N S R79 1 Abnormal coagulation profile 01/20/2019 ABRAHAM SANCHEZ I4891 Unspecified atrial fibrillation 01/20/2019 ABRAHAM SANCHEZ Z7901 polisher sand (current) use of anticoagulants 01/24/2019 DELORIS RAZA E1 19 Type 2 diabetes mellitus without complications 01/24/2019 DELORIS RAZA E7 800 Pure hypercholesterolemia, unspecified 01/24/2019 DELORIS RAZA Z29739 Epilepsy, unspecified, not intractable, without status epilepticus 01/24/2019 DELORIS RAZA I1 10 Hypertensive heart disease with heart failure 01/24/2019 DELORIS RAZA A70388 Atherosclerotic heart disease of [place] coronary artery with unstable angina pectoris 01/24/2019 DELORIS RAZA I2 55 Ischemic cardiomyopathy 01/24/2019 DELORIS RAZA I4 80 Paroxysmal atrial fibrillation 01/24/2019 DELORIS RAZA I5 023 Acute on chronic systolic (congestive) heart failure 01/24/2019 DELORIS RAZA M1 09 Gout, unspecified 01/24/2019 DELORIS ARZA N3 90 Urinary tract infection, site not specified 01/24/2019 DELORIS RAZA N5 29 Male erectile dysfunction, unspecified 01/24/2019 DELORIS RAZA Z2 3 Encounter for immunization 01/24/2019 DELORIS RAZA Z7 901 polisher sand (current) use of anticoagulants 01/24/2019 DELORIS RAZA Z7 984 polisher sand (current) use of oral hypoglycemic drugs 01/24/2019 DELORIS RAZA Z8 546 Personal history of malignant neoplasm of prostate 01/24/2019 DELORIS RAZA I09464 Personal history of nicotine dependence 01/24/2019 DELORIS RAZA Z9 049 Acquired absence of other specified parts of digestive tract 01/24/2019 DELORIS RAZA Z9 51 Presence of aortocoronary bypass graft 01/24/2019 DELORIS RAZA Y14573 Presence of automatic (implantable) cardiac defibrilla tor 01/24/2019 DELORIS RAZA K36627 Other specified postprocedural states 03/07/2019 JON GARDNER I2510 Atherosclerotic heart disease of [place] coronary artery without angina pectoris 03/07/2019 JON GARDNER P 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 03/25/2019 DAYDAY JAQUEZ D649 Anemia, unspecified 03/25/2019 DAYDAY JAQUEZ 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 03/25/2019 DAYDAY JAQUEZ E7800 Pure hypercholesterolemia, unspecified 03/25/2019 ROSAM DAYDAY S E782 Mixed hyperlipidemia 03/25/2019 DAYDAY JAQUEZ K39513 Epilepsy, unspecified, not intractable, without status epilepticus 03/25/2019 DAYDAY JAQUEZ I130 Hypertensive heart and chronic kidney disease with heart failure and stage 1 through stage 4 chronic kidney disease, or unspecified chronic kidney disease 03/25/2019 DAYDAY JAQUEZ I2510 Atherosclerotic heart disease of [place] coronary artery without angina pectoris 03/25/2019 DAYDAY [...] blood chemistry 03/25/2019 RANSOM, DAYDAY S Z7901 polisher sand (current) use of anticoagulants 03/25/2019 RANSOM, DAYDAY S Z7984 retirement (current) use of oral hypoglycemic drugs 03/25/2019 RANSOM, DAYDAY S Z8546 Personal history of malignant neoplasm of prostate 03/25/2019 RANSOM, DAYDAY S J84964 Personal history of nicotine dependence 03/25/2019 RANSOM, DAYDAY S Z9049 Acquired absence of other specified parts of digestive tract 03/25/2019 RANSOM, DAYDAY S Z951 Presence of aortocoronary bypass graft 03/25/2019 RANSOM, DAYDAY S U65202 Presence of automatic (implantable) cardiac defibrillator 03/25/2019 RANSOM, DAYDAY S Z97150 Other specified postprocedural states 04/11/2019 JON GARDNER S S I2510 Atherosclerotic heart disease of [place] coronary artery without angina pectoris 04/11/2019 JON [...] E11.22 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 05/10/2019 MARLA LOZA MD Ot F41.9 ANXIETY [...] SPECIF 05/10/2019 MARLA LOZA MD, Ot Z79.01 RISK LEAD (CURRENT) USE OF ANTICOAGULANT 05/10/2019 MARLA LOZA [...] ENCOUNTER 05/12/2019 CAS LAI APRN Ot Z79.01 RISK LEAD (CURRENT) USE OF ANTICOAGULANT 05/12/2019 CAS LAI APRN Ot Z95.828 PRESENCE OF OTHER VASCULAR IMPLANTS AND 05/13/2019 MARLA LOZA MD Ot D64.9 ANEMIA, UNSPECIFIED 05/13/2019 MARLA LOZA MD Ot E11.22 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 05/13/2019 MARLA LOZA MD Ot F41.9 ANXIETY [...] SPECIF 05/13/2019 MARLA LOZA MD, Ot Z79.01 FCI (CURRENT) USE OF ANTICOAGULANT 05/13/2019 MARLA LOZA [...] OF SCALP, INITIAL ENCOUNTER 05/14/2019 CAS LAI STOPER Ot W19.XXXA UNSPECIFIED FALL, INITIAL ENCOUNTER 05/14/2019 CAS LAI STOPER Ot Z79.01 RISK LEAD (CURRENT) USE OF ANTICOAGULANT 05/14/2019 ACS LAI STOPER Ot Z95.828 PRESENCE OF OTHER VASCULAR IMPLANTS AND 06/05/2019 CAS LAI STOPER Ot C6 1 MALIGNANT NEOPLASM OF PROSTATE 06/05/2019 CAS LAI STOPER Ot I50.9 HEART FAILURE, UNSPECIFIED 06/05/2019 CAS LAI STOPER Ot N1 9 UNSPECIFIED KIDNEY FAILURE 06/05/2019 CAS LAI STOPER Ot S00.03XA CONTUSION OF SCALP, INITIAL ENCOUNTER 06/05/2019 CAS LAI APRN Ot W19.XXXA UNSPECIFIED FALL, INITIAL ENCOUNTER 06/05/2019 CAS LAI STOPER Ot Z79.01 RISK LEAD (CURRENT) USE OF ANTICOAGULANT 06/05/2019 CAS LAI STOPER Ot Z95.828 PRESENCE OF OTHER VASCULAR IMPLANTS AND 06/11/2019 CAS LAI STOPER Ot C6 1 MALIGNANT NEOPLASM OF PROSTATE 06/11/2019 CAS LAI STOPER Ot I50.9 HEART FAILURE, UNSPECIFIED 06/11/2019 CAS LAI APRN Ot N1 9 UNSPECIFIED KIDNEY FAILURE 06/11/2019 CAS LAI STOPER Ot S00.03XA CONTUSION OF SCALP, INITIAL ENCOUNTER 06/11/2019 CAS LAI STOPER Ot W19.XXXA UNSPECIFIED FALL, INITIAL ENCOUNTER 06/11/2019 CAS LAI STOPER Ot Z79.01 RISK LEAD (CURRENT) USE OF ANTICOAGULANT 06/11/2019 CAS LAI STOPER Ot Z95.828 PRESENCE OF OTHER VASCULAR IMPLANTS AND 06/12/2019 CAS LAI STOPER Ot D64.9 ANEMIA, UNSPECIFIED 06/12/2019 CAS LAI STOPER Ot D64.9 ANEMIA, UNSPECIFIED 06/12/2019 CAS LAI STOPER Ot D64.9 ANEMIA, UNSPECIFIED 06/12/2019 CAS LAI STOPER Ot D64.9 ANEMIA, UNSPECIFIED 06/12/2019 CAS LAI STOPER Ot D64.9 ANEMIA, UNSPECIFIED 06/13/2019 CAS LAI STOPER Ot D64.9 ANEMIA, UNSPECIFIED 06/13/2019 W C61 [...] MD Ot I25.10 ATHSCL HEART DISEASE OF [place] CORONARY 06/15/2019 AARTI MORGAN, RASHMI Uriostegui Ot [...] chronic kidney disease not on chronic dialysis [place] Rashmi 07/01/2019 Ot D64.9 ANEM IA, UNSPECIFIED [...] NRG Whole blood hemoglobin and hematocrit [facility] 06/11/19 15:58 Venous blood hemoglobin measurement (mass/volume) 6.6 g/dL 13.3-17.7 Blood hematocrit (volume fraction) 21 % 40-54 RED CELLS LEUKO REDUCED AS1 - 06/11/19 1 5:58 RED CELLS LEUKO REDUCED AS1 T RANSFUSED 06/12/19 1141 NRG Blood type T Indirect antibody screen [facility] 06/11/19 15:58 WRISTBAND NUMBER [id number] NRG ABO+Rh group AN NRG Blood group antibody screen NEGATIVE NR G Whole blood hemoglobin and hematocrit [facility] 06/12/19 14:40 Venous blood hemoglobin measurement (mass/volume) 6.9 g/dL 13.3-17.7 Blood hematocrit (volume fraction) 21 % 40-54 Whole blood hemoglobin and hematocrit [facility] 06/12/19 15:02 Venous blood hemoglobin measurement (mass/volume) 7.5 g/dL 13.3-17.7 Blood hematocrit (volume fraction) 23 % 40-54 Whole blood hemoglobin and hematocrit [facility] 06/12/19 18:20 Venous blood hemoglobin measurement (mass/volume) 8.6 g/dL 13.3-17.7 Blood hematocrit (volume fraction) 26 % 40-54 Whole blood hemoglobin and hematocrit [facility] 06/13/19 11:45 Venous blood hemoglobin measurement (mass/volume) [...] pa harvinder - 06/14/19 18:19 WRISTBAND NUMBER [id number] NRG ABO+Rh group AN NRG Blood group [...] culture - 06/14/19 22:10 Bacterial urine culture [id number] NRG COLONY COUNT >100,000/ML NRG FREE TEXT [...] urinalysis with reflex to culture NO NRG Complete urinalysis with reflex to cultu re - 07/03/19 05:14 Urine color determination RED NRG Urine clarity determination OTHER NR G Urine pH measurement by test strip 7.0 5-9 Specific gravity of urine by test strip <= 1.016-1.022 Urine protein assay by test strip, semi-quantitative 3+ NEGATIVE Urine glucose detection by automated test strip 1+ NEGATIVE Erythrocytes detection in urine sediment by light micr oscopy 3+ NEGATIVE Urine ketones detection by automated test strip TR LILLIAN NEGATIVE Urine nitrite detection by test strip POSITIVE NEGATIVE Urine total bilirubin detection by test strip 2+ NEGATIVE Urine urobilinogen measurement by automated test strip (mass/volume) 2.0 mg/dL < = 1.0 Urine leukocyte esterase detection by dipstick 3+ NEGATIVE Automated urine sediment erythrocyte cou nt by microscopy (number/high power field) TNTC NRG Automated urine sediment leukocyte count by microscopy (number/high power field) [HPF] NRG Bacteria detection in urine sediment by light microsco py NEGATIVE NRG Squamous epithelial cells detection in u rine sediment by light microscopy 0-2 NRG Crystals detection in urine sediment by light microsco py NONE NRG Casts detection in urine sediment by light microscopy NONE NRG Mucus detection in urine sediment by light microscopy SMALL NRG Complete urinalysis with reflex to culture YES NRG Whole blood basic metabolic panel - 06/14 01/03 05:14 Serum or plasma sodium measurement (moles/volume) 141 mmol/L 135-145 Serum or plasma potassium measurement (moles/volume) 3.2 mmol/L 3.6-5.0 Serum or plasma chloride measurement (moles/volume) 97 mmol/L 98-107 Carbon dioxide 32 mmol/L 21-32 Serum or plasma anion gap determination (moles/volume) 12 mmol/L 5-14 Serum or plasma urea nitrogen measurement (mass/volume ) 32 mg/dL 7-18 Serum or plasma creatinine measurement (mass/volume) 1.30 mg/dL 0.60-1.30 Serum or plasma urea nitrogen/creatinine mass ratio 25 NRG Serum or plasma creatinine measurement w ith calculation of estimated glomerular filtration rate 54 NRG Serum or plasma glucose measurement (mass/volume) 104 mg/dL 70-105 Serum or plasma calcium measurement (mass/volume) 9.2 mg/dL 8.5-10.1 Complete blood count (CBC) with automate d white blood cell (WBC) differential - 07/03/19 05:20 Blood leukocytes automated count (number/volume) 3.2 10*3/uL 4.3-11.0 Blood erythrocytes automated count (number/volume) 3.12 10*6/uL 4.35-5.85 Venous blood hemoglobin measurement (mass/volume) 7.5 g/dL 13.3-17.7 Blood hematocrit (volume fraction) 25 % 40-54 Automated erythrocyte mean corpuscular volume 79 [ foz_us] 80-99 Automated erythrocyte mean corpuscular h emoglobin (mass per erythrocyte) 24 pg 25-34 Automated erythrocyte mean corpuscular h emoglobin concentration measurement (mass/volume) 31 g/dL 32-36 Automated erythrocyte distribution width ratio 18. 0 % 10.0- 14.5 Automated blood platelet count (count/volume) 249 10*3/uL 130-400 Automated blood platelet mean volume measurement 11.1 [foz_us] 7.4-10.4 Automated blood neutrophils/100 leukocytes 69 % 42-75 Automated blood lymphocytes/100 leukocytes 16 % 12-44 Blood monocytes/100 leukocytes 13 % 0-12 Automated blood eosinophils/100 leukocytes 2 % 0-10 Automated blood basophils/100 leukocytes 1 % 0-10 Blood neutrophils automated count (number/volume) 2.2 10*3 1.8-7.8 Blood lymphocytes automated count (number/volume) 0.5 10*3 1.0-4.0 Blood monocytes automated count (number/volume) 0. 4 10*3 0.0-1.0 Automated eosinophil count 0.1 10*3/uL 0 .0-0.3 Automated blood basophil count (count/volume) 0.0 10*3/uL 0.0-0.1 Encounters ACCT No. Visit Date/Time Discharge Status Pt. Type Provider Facility Loc./Unit Complaint [id number] 02/27/2019 09:29:00 04/11/2019 10:12: 00 DIS Outpatient JON GARDNER CHF [id number] 03/24/2019 08:58:00 03/25/2019 11:59: 00 DIS Inpatient DAYDAY JAQUEZ 00 7 ADMIT FOR CHF AFR [id number] 01/23/2019 17:30:00 01/24/2019 09:10: 00 DIS Inpatient DELORIS RAZA 007 HEART ISSUES [id number] 01/20/2019 13:06:00 01/20/2019 23:59: 59 CLS Outpatient DANIELABRAHAM [id number] [id number] 01/16/2019 13:24:00 01/16/2019 23:59: 59 CLS Outpatient DANIELABRAHAM [id number] [id number] 01/16/2019 13:58:00 01/16/2019 18:01: 00 DIS Emergency STEPHEN SEGUNDO 014 ELEVATED INR, BLOOD IN URINE, BACK PAIN, [id number] 01/09/2019 08:24:35 01/09/2019 23:59: 59 CLS Outpatient ABRAHAM SANCHEZ [id number] 01/06/2019 09:50:00 01/06/2019 23:59: 59 CLS Outpatient DANIEL ABRAHAM [id number] [id number] 09/02/2018 17:01:00 09/02/2018 23:59: 59 CLS Outpatient LISANDRO VALDEZ R39.9 [id number] 03/25/2018 10:21:00 03/25/2018 14:05: 00 DIS Outpatient LISANDRO VALDEZ 012 C61 [id number] 01/07/2018 10:53:00 01/07/2018 13:35: 00 DIS Outpatient LISANDRO VALDEZ 012 R9.20 [id number] 10/09/2017 07:36:00 10/09/2017 09:49: 00 DIS Outpatient LOLI KURTZ 2 H25.811 [id number] 09/25/2017 11:42:00 09/25/2017 14:20: 00 DIS Outpatient LOLI KURTZ 2 [id number] [id number] 02/15/2017 13:20:26 02/15/2017 23:59: 59 CLS Outpatient CARI MORALES [id number] 01/29/2017 09:52:00 01/29/2017 23:59: 59 CLS Outpatient DEONTE RUIZ [id number] 01/24/2017 09:06:00 01/24/2017 23:59: 59 CLS Outpatient DEONTE RUIZ I10 [id number] 01/03/2017 14:07:00 01/03/2017 23:59: 59 CLS Outpatient VIRGILBLAYNE DELORIS CAROLANN N39.0 [id number] 10/09/2017 07:41:29 Document Registration [id number] 06/30/2019 19:30:00 21:10:00 DIS Emergency JAKE DO, STEPHANIE Glory [facility] ER HAD WALKER REMOVED TODAY ,BLEEDING [id number] 06/23/2019 15:47:00 23:59:59 CLS Outpatient SANDRA DEVI MD [facility] LAB [id number] 06/14/2019 19:43:00 15:35:00 DIS Outpatient RASHMI MURDOCK MD [facility] 4TH HEMATURIA [id number] 06/13/2019 11:22:00 23:59:59 CLS Outpatient ZAHEER MIKE [facility] LAB [id number] 06/13/2019 11:19:00 23:59:59 CLS Outpatient SANDRA DEVI MD [facility] CARD CA P [id number] 06/12/2019 08:00:00 020 21:00:00 DIS Outpatient CAS LAI APRN [facility] LAB ANEMIA [id number] 05/10/2019 09:49:00 01/25/2 020 14:56:00 DIS Emergency BRUEGGEMANN MD, MARLA Bearden [facility] ER PAIN IN BOTH LE GS [id number] 05/08/2019 12:11:00 020 23:59:59 CLS Outpatient CAS LAI APRN [facility] RAD FALL,EDEMA,ANTI-COAG [id number] 07/03/2019 05:41:00 Document Registration [id number] 06/30/2019 20:49:00 Document Registration [id number] 05/02/2019 15:30:52 0 23:59:59 [facility] [id number] 02/13/2019 08:38:17 02/15/2019 23:59:5 9 DIS Out[facility] [id number] 12/05/2018 09:15:28 12/05/2018 23:59:5 9 CLS [facility] [id number] 09/02/2018 10:17:01 09/02/2018 23:59:5 9 CLS [facility] [id number] 11/05/2017 08:00:00 11/05/2017 23:59: 59 CLS Outpatient David Lawson [facility] [id number] 05/08/2019 09:39:12 05/08/2019 23:59:5 9 CLS Outpatient
[2019-07-03 08:00] VITALS: BP 103/56
--- NOTE | 2019-07-03 08:00 | NUR ---
MARGARITO CHANDRA admitted to room 419-1, with an admitting diagnosis of hematuria and anemia, on 07/03/19 from ED, accompanied by family and staff.MARGARITO CHANDRA introduced to surroundings, call light, bed controls, phone, TV, temperature control, lights, meal times, smoking policy, visitor policy, side rail policy, bathrooms and showers. Patient Rights given to patient in the handbook. MARGARITO CHANDRA verbalizes understanding that [facility] is not responsible for the loss or damage to any personal effects or valuables that are kept in the patients posession during their hospitalization. MARGARITO CHANDRA verbalizes understanding of Interdisciplinary Patient Education. Patient and/or family were informed about the Rapid Response Team and its purpose.
--- NOTE | 2019-07-03 08:52 | History & Physical ---
History of Present Illness History of Present Illness Date of Admission Jul 03, 2019 at 07:00 I consulted on this patient on 07/03/19 08:52 Attending Physician Rashmi Broussard MD Admitting Physician Rashmi Broussard MD Consult Allergies and Home Medications Allergies Coded Allergies: No Known Drug Allergies (Unverified , 06/30/19) Past Hgkeavi-Gcneup-Xmrpns Hx Past Med/Social Hx: Reviewed Nursing Past Med/Soc Hx Patient Social History Alcohol Use: Denies Use Recreational Drug Use: No Smoking Status: Former Smoker Former Smoker, Quit: Apr 30, 1967 2nd Hand Smoke Exposure: No Recent Foreign Travel: No Contact w/other who traveled: No Recent Hopitalizations: No Recent Infectious Disease Expo: No Immunizations Up To Date Date of Pneumonia Vaccine: May 17, 2016 Date of Influenza Vaccine: Jan 14, 2019 Seasonal Allergies Seasonal Allergies: No Past Medical History Surgeries: Appendectomy, Cardiac, CABG, Coronary Stent, Dialysis, Nose Cardiac: Atrial Fibrillation, Chronic Edema/Swelling, Coronary Artery Disease, High Cholesterol, Hypertension Neurological: Neuropathy, Seizure Disorder Genitourinary: Prostate Problems, Renal Failure, Dialysis (no longer requires dialysis) Endocrine: Diabetes, Non-Insulin dep Cancer: Prostate What Type of Treatment Did You: Radiation History of Blood Disorders: Yes (chronic anemia) Adverse Reaction to Blood Smith: No Family History Reviewed Nursing Family Hx No Pertinent Family Hx Physical Exam Vital Signs Vital Signs - First Documented 07/03/19 04:58 Temp 36.5 Pulse 73 Resp 16 B/P (MAP) 96/52 (67) Pulse Ox 98 O2 Delivery Room Air Capillary Refill : Less Than 3 Seconds Height, Weight, BMI Height: '" Weight: lbs. oz. kg; 19.00 BMI Method: Clinical Quality Measures DVT/VTE Risk/Contraindication: Risk Factor Score Per Nursin RFS Level Per Nursing on Admit: 2=Moderate RASHMI BROUSSARD MD Jul 03, 2019 08:52
[2019-07-03] MEDS ORDERED: KCL 20 MEQ TAB (K-DUR) PO ONE (09:00)
[2019-07-03] MEDS ORDERED: LEVETIRACETAM 500 MG (KEPPRA) TAB PO SCH (09:00)
[2019-07-03] MEDS: metFORMIN 500 MG (GLUCOPHAGE) TAB PO SCH (10:43)
[2019-07-03] MEDS: DIGOXIN 0.125 MG (LANOXIN) TAB PO SCH (10:43)
[2019-07-03] MEDS: MIDODRINE 10 MG (PROAMATINE) TAB PO SCH (10:43)
[2019-07-03] MEDS: NS IV 1000 ML 1,000 ML IV SCH ×2 (10:44→16:25)
[2019-07-03] MEDS: LEVOTHYROXINE 25 MCG (LEVOTHROID) TAB PO SCH (10:44)
[2019-07-03] MEDS: AMIODARONE 200 MG (CORDARONE) TAB PO SCH (10:44)
[2019-07-03] MEDS: BUMETANIDE 1 MG (BUMEX) TAB PO SCH (10:44)
[2019-07-03] MEDS ORDERED: CATHETER FLUSH 10 ML SYR IV PRN (11:30)
[2019-07-03 12:03] LABS: HEMOGLOBIN 7.9 G/DL (13.3-17.7)
[2019-07-03 12:21] VITALS: BP 103/56
--- NOTE | 2019-07-03 12:36 | CONSULTATION REPORT ---
DATE OF SERVICE: 07/03/2019 ATTENDING PHYSICIAN: Dr. Broussard. SUMMARY: A 78-year-old white man known to me for quite some time with history of gross hematuria and underwent cystoscopy once in [facility] and once by myself earlier this week. There was no bladder tumor. He was on intermittent self-cath and traumatizing himself, so he presented to the emergency room early this week and I told him to just leave the Varner catheter in. He came to my office with his day before admission. He has been put back on the Eliquis by Dr. Broussard. His urine was clear. We discussed the option and him and his elected to have a suprapubic tube placement, which I think is very appropriate and reasonable and thus they recommended; however, his hemoglobin was running 7, so I started him on some iron and told him once we get that hemoglobin in better shape, then we will plan the surgical procedure; however, he came early this morning to the emergency room with gross hematuria, no clots. Catheter is draining well. We held his Eliquis. He is feeling well, otherwise, I told the ER to give him a shot of Rocephin after sending the urine for testing. IMPRESSION: Gross hematuria, neurogenic bladder. RECOMMENDATION: Recommended blood transfusion to increase his hemoglobin as close as possible to 10 and then allow the iron to build him more for we anticipate the suprapubic tube placement may be in 4 weeks or so. When he comes back to my office, we will plan that. Job ID: [id number] DocumentID: [id number] Dictated Date: 07/03/2019 11:48:11 Sdc Teacher Date: 07/03/2019 12:35:40 Dictated By: SANDRA DEVI MD
[2019-07-03] MEDS ORDERED: BUME1TAB8 PO (12:45)
[2019-07-03] MEDS ORDERED: CYAN250010 PO (12:47)
[2019-07-03] MEDS ORDERED: VIT1CAPS44 PO (12:47)
[2019-07-03] MEDS ORDERED: ACET325T38 PO (12:47)
--- NOTE | 2019-07-03 12:48 | NUR ---
telephone orders to have pharmacist order and dose injectafer to be given now. pharmacist notified
--- NOTE | 2019-07-03 13:07 | NUR ---
SPOKE WITH THE PT AND HIS (SHE HAD A LIST) WENT THRU THE EXT MED HISTORY TO COMPLETE THE MED REC. THE PT'S WAS KNOWLEDGEABLE OF THE PTS MEDS & WAS ABLE TO ANSWER ALL MY QUESTIONS AMIODARONE 200MG: THE EXT MED HISTORY SHOWS #180/90DS (EITHER 1 TAB BID OR 2 TABS DAILY) HOWEVER THE PATIENTS SAYS HE ONLY TAKES 1 TAB DAILY- SHE HAD HIS DISCHARGE FORM FROM [facility] THAT SHOWS DISCHARGE DIRECTIONS OF 1 TAB DAILY. THE FOLLOWING MEDS SHOW ON THE EXT MED HISTORY BUT THE PT IS NO LONGER TAKING: METOPROLOL LASIX METFORMIN ELIQUIS OTC MEDS: VIT B12 PRESERVISION
[2019-07-03] MEDS ORDERED: FERRIC CARBOXYMALTOSE INJ 750 MG in NS (IVPB) 250 ML IV SCH (13:15)
[2019-07-03] MEDS ORDERED: NS IV 500 ML 500 ML IV SCH (13:50)
[2019-07-03] MEDS ORDERED: diphenhydrAMINE 50 MG/ML INJ (BENADRYL) IV PRN (14:00)
[2019-07-03] MEDS ORDERED: IRON DEXTRAN INJECTION 25 MG in NS (IVPB) 5.75 ML IV ONE (14:00)
[2019-07-03] MEDS ORDERED: HYDROCORTISONE 100 MG/2 ML (Solu-CORTEF) VIAL IV PRN (14:00)
[2019-07-03] MEDS ORDERED: RT-ALBUTEROL SULF 2.5 MG/3 ML PRE-MIX VIAL IH PRN (14:00)
[2019-07-03] MEDS ORDERED: IRON DEXTRAN INJECTION 1,000 MG in NS (IVPB) 250 ML IV ONE (14:00)
[2019-07-03] MEDS ORDERED: EPINEPHrine INJECTION 1 MG/ML AMP IM PRN (14:00)
[2019-07-03] MEDS: CATHETER FLUSH 10 ML SYR IV SCH ×2 (15:50→21:06)
[2019-07-03 16:11] VITALS: BP 109/55
[2019-07-03] MEDS: DOCUSATE SODIUM 100 MG (COLACE) CAP PO SCH (19:44)
[2019-07-03 19:58] VITALS: BP 105/56
--- NOTE | 2019-07-03 20:05 | NUR ---
DR MURDOCK NOTIFIED ABOUT PT REQUESTING TO HAVE KEPPRA 500MG GIVEN BID LIKE HE TAKES AT HOME- NEW ORDER RECEIVED FOR KEPPRA 500MG BID. ALSO INSTRUCTED TO REPEAT H&H IN AM
[2019-07-03] MEDS: LEVETIRACETAM 500 MG (KEPPRA) TAB PO SCH (21:04)
[2019-07-04 00:06] VITALS: BP 114/71
[2019-07-04] MEDS: NS IV 1000 ML 1,000 ML IV SCH ×3 (00:28→06:47)
[2019-07-04 03:55] VITALS: BP 118/69
[2019-07-04 04:45] LABS: HEMOGLOBIN 8.3 G/DL (13.3-17.7); MEAN PLATELET VOLUME 11.2 FL (7.4-10.4); RED CELL DISTRIBUTION WIDTH 17.9 % (10.0-14.5); WHITE BLOOD COUNT 3.7 10^3/uL (4.3-11.0)
[2019-07-04 04:59] LABS: ALBUMIN 3.5 GM/DL (3.2-4.5); BILIRUBIN,TOTAL 0.8 MG/DL (0.1-1.0); CREATININE SERUM 1.23 MG/DL (0.60-1.30); MAGNESIUM 1.9 MG/DL (1.6-2.4); POTASSIUM 3.9 MMOL/L (3.6-5.0); TOTAL PROTEIN 6.5 GM/DL (6.4-8.2)
[2019-07-04] MEDS: CATHETER FLUSH 10 ML SYR IV SCH (05:18)
[2019-07-04 08:00] VITALS: BP 103/64
--- NOTE | 2019-07-04 08:57 | Discharge Summary ---
Diagnosis/Chief Complaint Date of Admission Jul 03, 2019 at 07:00 Date of Discharge Discharge Summary Discharge Physical Examination Allergies: Coded Allergies: No Known Drug Allergies (Unverified , 06/30/19) Vitals & I&Os Vital Signs Date Time Temp Pulse Resp B/P (MAP) Pulse Ox O2 Delivery O2 Flow Rate FiO2 07/04/19 03:55 36.2 74 22 118/69 (85) 100 Room Air Hospital Course Pending Labs Laboratory Tests 07/04/19 04:20: White Blood Count 3.7, Red Blood Count 3.40, Hemoglobin 8.3, Hematocrit 27, Mean Corpuscular Volume 79, Mean Corpuscular Hemoglobin 24, Mean Corpuscular Hemoglobin Concent 31, Red Cell Distribution Width 17.9, Platelet Count 233, Mean Platelet Volume 11.2, Sodium Level 142, Potassium Level 3.9, Chloride Level 103, Carbon Dioxide Level 26, Anion Gap 13, Blood Urea Nitrogen 29, Creatinine 1.23, Estimat Glomerular Filtration Rate 57, BUN/Creatinine Ratio 24, Glucose Level 134, Calcium Level 9.0, Corrected Calcium 9.4, Magnesium Level 1.9, Total Bilirubin 0.8, Aspartate Amino Transf (AST/SGOT) 24, Alanine Aminotransferase (ALT/SGPT) 22, Alkaline Phosphatase 123, Total Protein 6.5, Albumin 3.5 Discharge Instructions to patient/family Please see electronic discharge instructions given to patient. Discharge Medications Reviewed and agree with Discharge Medication list on patient's Discharge Instruction sheet Clinical Quality Measures DVT/VTE Risk/Contraindication: Risk Factor Score Per Nursin RFS Level Per Nursing on Admit: 2=Moderate RASHMI MURDOCK MD Jul 04, 2019 08:57
--- NOTE | 2019-07-04 09:01 | Discharge Inst-Simple/Standard ---
Discharge Inst-Standard Reconcile Patient Problems Problems Reviewed?: Yes Patient Instructions/Follow Up Plan of Care/Instructions/FU: CALL THE OFFICE FOR A TELEPHONE - TELEMEDICINE VISIT Activity as Tolerated: Yes Discharge Diet: Regular Diet Return to The Hospital For: ANY CONCERN FOR WORSENING SYMPTOMS RASHMI MURDOCK MD Jul 04, 2019 09:01
--- NOTE | 2019-07-04 09:07 | Progress Note - Urology ---
Progress Note-Urology Progress Notes/Assess & Plan Progress/Assessment & Plan FEELS WELL. URINE CLEARING. OK TO DISCHARGE M[facility]. REC 1. STAY OFF BLOOD THINNERS 2. INCREASE FLUIDS 3. KEEP IRON RX 4. KEEP APPOINTMENT IN 4 WEEKS Final Diagnosis GROSS HEMATURIA SANDRA DEVI MD Jul 04, 2019 09:07
[2019-07-04] MEDS: MIDODRINE 10 MG (PROAMATINE) TAB PO SCH (09:42)
[2019-07-04] MEDS: LEVETIRACETAM 500 MG (KEPPRA) TAB PO SCH (09:42)
[2019-07-04] MEDS: LEVOTHYROXINE 25 MCG (LEVOTHROID) TAB PO SCH (09:42)
[2019-07-04] MEDS: AMIODARONE 200 MG (CORDARONE) TAB PO SCH (09:42)
[2019-07-04] MEDS: BUMETANIDE 1 MG (BUMEX) TAB PO SCH (09:42)
[2019-07-04] MEDS: DOCUSATE SODIUM 100 MG (COLACE) CAP PO SCH (09:42)
[2019-07-04] MEDS: metFORMIN 500 MG (GLUCOPHAGE) TAB PO SCH (09:42)
[2019-07-04] MEDS: DIGOXIN 0.125 MG (LANOXIN) TAB PO SCH (09:42)
[2019-07-04 11:50] VITALS: BP 103/64
== END 2019-07-04 11:50 | disposition home or self-care (01) ==
LOC: EDUNIT# 04:50 → ER 04:52 → 4TH 07:00
PROVIDERS: ADMIT Family Medicine; ATTEND Family Medicine
DX: R31.0 Gross hematuria (principal); D64.9 Anemia, unspecified; N39.0 Urinary tract infection, site not specified; E87.6 Hypokalemia; I48.91 Unspecified atrial fibrillation; I25.10 Atherosclerotic heart disease of native coronary artery without angina pectoris; E78.00 Pure hypercholesterolemia, unspecified; E11.42 Type 2 diabetes mellitus with diabetic polyneuropathy; E11.22 Type 2 diabetes mellitus with diabetic chronic kidney disease; I13.0 Hypertensive heart and chronic kidney disease with heart failure and stage 1 through stage 4 chronic kidney disease, or unspecified chronic kidney disease; N18.9 Chronic kidney disease, unspecified; I50.9 Heart failure, unspecified; Z87.891 Personal history of nicotine dependence; Z95.1 Presence of aortocoronary bypass graft; Z95.5 Presence of coronary angioplasty implant and graft; Z99.2 Dependence on renal dialysis; Z85.46 Personal history of malignant neoplasm of prostate; Z92.3 Personal history of irradiation
CPT/HCPCS: 36415; 80048; 80053; 81000; 83735; 85014; 85018; 85025; 85027; 86850; 86900; 86901; 87088; 96374; G0378

== ENCOUNTER → 2019-08-25 | Outpatient (CLI) | payer MEDICARE, BC ==
[~2019-08-25] VITALS: Ht 175 cm; Wt 56.0 kg
[~2019-08-25] MED LIST changes: +ACET325T38 PO; +BUME1TAB8 PO; +CYAN250010 PO; +METF-397 PO; +REGADENOSON 0.4 MG/5 ML SYR (LEXISCAN) IV ONE; +VIT1CAPS44 PO
[2019-08-25] MEDS: CATHETER FLUSH 10 ML SYR IV PRN ×2 (07:41→09:02)
[2019-08-25 09:01] VITALS: BP 122/61
--- NOTE | 2019-08-25 14:38 | STRESS TEST ---
DATE OF SERVICE: 08/25/2019 LEXISCAN MYOVIEW STRESS TEST REPORT REFERRING PHYSICIAN: Geovanna Broussard MD Baseline heart rate is 70. Baseline blood pressure 126/73. Baseline EKG is sinus rhythm with ventricular paced rhythm. In summary, the patient was injected with 10.09 mCi of technetium-99 Myoview and the resting images were obtained. Then, the patient received 0.4 mg of Lexiscan followed by 32.2 mCi of technetium-99 Myoview. Throughout the test, there were no EKG changes. The resting and stress images were reviewed and compared in the short axis, horizontal long axis, and vertical long axis views. Review of the images showed fix defect involving the whole inferior wall and inferolateral wall extending to the anterolateral wall with no significant reversibility. SSS is 31, SDS 0, TID value 1.07. On the gated images, the left ventricle appeared to be dilated with end diastolic volume 331 mL, end systolic volume of 258 mL. Diffuse left ventricular hypokinesia with dyskinesia of the apex, akinesia of the whole inferior wall, inferoseptum and inferolateral wall. Calculated ejection fraction 22%. CONCLUSION: 1. The patient tolerated Lexiscan well. 2. Baseline paced rhythm persisted throughout test. 3. 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 4. 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 Calculated ejection fraction 22%. Job ID: [id number] DocumentID: [id number] Dictated Date: 08/25/2019 12:03:05 Foundation Assistant Date: 08/25/2019 14:37:40 Dictated By: AGUSTÍN MCLEAN MD
== END ==
LOC: CARD 07:30
PROVIDERS: ATTEND Internal Medicine Cardiovascular Disease
DX: I48.91 Unspecified atrial fibrillation (principal); E78.2 Mixed hyperlipidemia; I11.0 Hypertensive heart disease with heart failure; I50.9 Heart failure, unspecified; I25.3 Aneurysm of heart; I51.89 Other ill-defined heart diseases; Z95.0 Presence of cardiac pacemaker
CPT/HCPCS: 78452; 93017

== ENCOUNTER → 2019-08-27 | Outpatient (CLI) | payer MEDICARE, BC ==
[~2019-08-27] MED LIST changes: -REGADENOSON 0.4 MG/5 ML SYR (LEXISCAN) IV ONE
== END ==
LOC: CARD 08:46
PROVIDERS: ATTEND Internal Medicine Cardiovascular Disease
DX: I48.0 Paroxysmal atrial fibrillation (principal); I11.0 Hypertensive heart disease with heart failure; I50.42 Chronic combined systolic (congestive) and diastolic (congestive) heart failure; E78.2 Mixed hyperlipidemia; Z95.0 Presence of cardiac pacemaker; I08.1 Rheumatic disorders of both mitral and tricuspid valves
CPT/HCPCS: 93306

== ENCOUNTER 2019-10-23 05:33 | Outpatient (RCR) | payer MEDICARE, BC ==
[~2019-10-23] VITALS: Ht 175.3 cm; Wt 57.3 kg
== END 2019-10-23 13:47 | disposition home or self-care (01) ==
LOC: PREOP 05:33
PROVIDERS: ATTEND Urology
DX: Z01.812 Encounter for preprocedural laboratory examination (principal); Z20.828 Contact with and (suspected) exposure to other viral communicable diseases; N31.9 Neuromuscular dysfunction of bladder, unspecified; R33.9 Retention of urine, unspecified
CPT/HCPCS: 87635

== ENCOUNTER 2019-10-28 06:00 | Day surgery (SDC) | payer MEDICARE, BC ==
[~2019-10-28] VITALS: Ht 175 cm; Wt 57.3 kg
[2019-10-28] VITALS (10 sets, daily range): BP systolic 102–130; BP diastolic 65–79
--- OUTSIDE RECORDS SUMMARY | 2019-10-28 06:43 | XMS REPORT | Continuity of Care Document ---
Author Organization Unknown Address Unknown Phone Unavailable Allergies Active Description Code Type Severity Reaction Onset Reported/Identified Relationship to Patient Clinical Status Yes No Known Allergies [id number] Miscellaneous Allergy Moderate N/A Yes No Known Medication Allergies ##NOMEN##,AL1,ceStruct,allergy,[id number] Unknown N/A N/A Yes No Known Drug Allergies [id number] Drug Allergy Unknown N/A 06/30/2019 Medications Medication [...] Coded Attending Type Code Diagnosis Diagnosed By 03/15/1346 MARITO MORGAN, SANDRA Uriostegui Ot N31.9 NEUROMUSCULAR DYSFUNCTION OF BLADDER, UN 03/15/1346 SANDRA DEVI MD Ot R33.9 RETENTION OF URINE, UNSPECIFIED 03/15/1346 SANDRA DEVI MD Ot Z01.8 12 ENCOUNTER FOR PREPROCEDURAL LABORATORY E 03/15/1346 SANDRA DEVI MD Ot Z20.8 28 CONTACT W AND EXPOSURE TO OTH VIRAL COMM 01/03/2017 DELORIS RAZA P N3 90 Urinary tract infection, site not specified 01/24/2017 DEONTE RUIZ E875 Hyperkalemia 01/24/2017 DEONTE RUIZ P I10 Essential (primary) hypertension 01/29/2017 DEONTE RUIZ I5022 Chronic systolic (congestive) heart failure 09/25/2017 LOLI KURTZ E7800 Pure hypercholesterolemia, unspecified 09/25/2017 LOLI KURTZ [id number] Combined forms of age-related cataract, left eye 09/25/2017 LOLI KURTZ I10 Essential (primary) hypertension 09/25/2017 LOLI KURTZ N400 Benign prostatic hyperplasia without lower urinary tract symptoms 09/25/2017 LOLI KURTZ R569 Unspecified convulsions 09/25/2017 LOLI KURTZ [id number] Personal history of nicotine dependence 10/09/2017 LOLI KURTZ E7800 Pure hypercholesterolemia, unspecified 10/09/2017 LOLI KURTZ P [id number] Combined forms of age-related cataract, right eye 10/09/2017 LOLI KURTZ I10 Essential (primary) hypertension 10/09/2017 LOLI KURTZ N400 Benign prostatic hyperplasia without lower urinary tract symptoms 10/09/2017 LOLI KURTZ R569 Unspecified convulsions 10/09/2017 LOLI KURTZ [id number] Personal history of nicotine dependence 01/07/2018 WILLIAM VALDEZY P C61 Malignant neoplasm of prostate 01/07/2018 LISANDRO VALDEZ S R9720 Elevated prostate specific antigen [PSA] 01/07/2018 LISANDRO VALDEZ S [id number] Personal history of nicotine dependence 03/25/2018 JOSÉ MIGUELLISANDRO P C61 Malignant neoplasm of prostate 03/25/2018 LISANDRO VALDEZ S [id number] Personal history of nicotine dependence 09/02/2018 JOSÉ MIGUELLISANDRO P R399 Unspecified symptoms and signs involving the genitourinary system 01/06/2019 ABRAHAM SANCHEZ I4891 Unspecified atrial fibrillation 01/06/2019 ABRAHAM SANCHEZ Z7901 senior living (current) use of anticoagulants 01/09/2019 ABRAHAM SANCHEZ I4891 Unspecified atrial fibrillation 01/09/2019 ABRAHAM SANCHEZ Z7901 watermelon inspector (current) use of anticoagulants 01/16/2019 ABRAHAM SANCHEZ I4891 Unspecified atrial fibrillation 01/16/2019 ABRAHAM SANCHEZ Z7901 senior living (current) use of anticoagulants 01/16/2019 STEPHEN SEGUNDO N S I48 91 Unspecified atrial fibrillation 01/16/2019 STEPHEN SEGUNDO N P N30 91 Cystitis, unspecified with hematuria 01/16/2019 STEPHEN SEGUNDO N S R79 1 Abnormal coagulation profile 01/20/2019 ABRAHAM SANCHEZ P I4891 Unspecified atrial fibrillation 01/20/2019 ABRAHAM SANCHEZ Z7901 watermelon inspector (current) use of anticoagulants 01/24/2019 DELORIS RAZA E1 19 Type 2 diabetes mellitus without complications 01/24/2019 DELORIS RAZA E7 800 Pure hypercholesterolemia, unspecified 01/24/2019 DELORIS RAZA W65753 Epilepsy, unspecified, not intractable, without status epilepticus 01/24/2019 DELORIS RAZA I1 10 Hypertensive heart disease with heart failure 01/24/2019 DELORIS RAZA 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 01/24/2019 [...] for immunization 01/24/2019 DELORIS RAZA Z7 901 senior living (current) use of anticoagulants 01/24/2019 DELORIS RAZA Z7 984 senior living (current) use of oral hypoglycemic drugs 01/24/2019 DELORIS RAZA Z8 546 Personal history of malignant neoplasm of prostate 01/24/2019 DELORIS RAZA [id number] Personal history of nicotine dependence 01/24/2019 DELORIS RAZA Z9 049 Acquired absence of other specified parts of digestive tract 01/24/2019 DELORIS RAZA Z9 51 Presence of aortocoronary bypass graft 01/24/2019 DELORIS RAZA C39466 Presence of automatic (implantable) cardiac defibrilla tor 01/24/2019 DELORIS RAZA [id number] Other specified postprocedural states 03/07/2019 JON GARDNER S 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 03/07/2019 JON GARDNER 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 03/25/2019 DAYDAY JAQUEZ D649 Anemia, unspecified 03/25/2019 DAYDAY JAQUEZ 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 03/25/2019 DAYDAY JAQUEZ E7800 Pure hypercholesterolemia, unspecified 03/25/2019 LEONID DAYDAY S E782 Mixed hyperlipidemia 03/25/2019 RANSOM, DAYDAY S M68299 Epilepsy, unspecified, not intractable, without status epilepticus 03/25/2019 RANSOM, DAYDAY P I130 Hypertensive heart and chronic kidney disease with heart failure and stage 1 through stage 4 chronic kidney disease, or unspecified chronic kidney disease 03/25/2019 RANSOM, DAYDAY S 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 03/25/2019 RANSOM, DAYDAY S I255 Ischemic cardiomyopathy 03/25/2019 RANSOM, DAYDAY S [...] blood chemistry 03/25/2019 RANSOM, DAYDAY S Z7901 watermelon inspector (current) use of anticoagulants 03/25/2019 RANSOM, DAYDAY S Z7984 watermelon inspector (current) use of oral hypoglycemic drugs 03/25/2019 RANSOM, DAYDAY S Z8546 Personal history of malignant neoplasm of prostate 03/25/2019 RANSOM, DAYDAY S [id number] Personal history of nicotine dependence 03/25/2019 RANSOM, DAYDAY S Z9049 Acquired absence of other specified parts of digestive tract 03/25/2019 RANSOM, DAYDAY S Z951 Presence of aortocoronary bypass graft 03/25/2019 RANSOM, DAYDAY S [id number] Presence of automatic (implantable) cardiac defibrillator 03/25/2019 RANSOM, DAYDAY S J15727 Other specified postprocedural states 04/11/2019 JON GARDNER S 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 04/11/2019 JON GARDNER P 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 05/10/2019 MING, CAS M TYPING CHECKER Ot C6 1 MALIGNANT NEOPLASM OF PROSTATE 05/10/2019 CAS LAI TYPING CHECKER Ot C6 1 MALIGNANT NEOPLASM OF PROSTATE 05/10/2019 CAS LAI TYPING CHECKER Ot C6 1 MALIGNANT NEOPLASM OF PROSTATE 05/10/2019 MARLA LOZA MD Ot D64.9 ANEMIA, UNSPECIFIED 05/10/2019 MARLA LOZA MD Ot E11.22 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 MELLITUS W DIABETIC HOME HELP AIDE 05/10/2019 MARLA LOZA MD Ot F41.9 ANXIETY DISORDER, UNSPECIFIED 05/10/2019 MARLA LOZA MD Ot I48.91 UNSPECIFIED ATRIAL FIBRILLATION 05/10/2019 MARLA LOZA MD Ot I50.9 HEART FAILURE, UNSPECIFIED 05/10/2019 MARLA LOZA MD Ot L03.116 CELLULITIS OF LEFT LOWER LIMB 05/10/2019 MARLA LOZA MD Ot M79.604 PAIN IN RIGHT LEG 05/10/2019 MARLA LOZA MD Ot N18.9 CHRONIC KIDNEY DISEASE, UNSPECIFIED 05/10/2019 MARLA LOZA MD Ot N39.0 URINARY TRACT INFECTION, SITE NOT SPECIF 05/10/2019 MARLA LOZA MD Ot Z79.01 JAIL (CURRENT) USE OF ANTICOAGULANT 05/10/2019 MARLA LOZA [...] DEPENDENCE ON RENAL DIALYSIS 05/12/2019 CAS LAI TYPING CHECKER Ot C6 1 MALIGNANT NEOPLASM OF PROSTATE 05/12/2019 CAS LAI APRN Ot I50.9 HEART FAILURE, UNSPECIFIED 05/12/2019 CAS LAI TYPING CHECKER Ot N1 9 UNSPECIFIED KIDNEY FAILURE 05/12/2019 MING CAS M TYPING CHECKER Ot S00.03XA CONTUSION OF SCALP, INITIAL ENCOUNTER 05/12/2019 CAS LAI TYPING CHECKER Ot W19.XXXA UNSPECIFIED FALL, INITIAL ENCOUNTER 05/12/2019 MING CAS Tyrone TYPING CHECKER Ot Z79.01 JAIL (CURRENT) USE OF ANTICOAGULANT 05/12/2019 CAS LAI APRN Ot Z95.828 PRESENCE OF OTHER VASCULAR IMPLANTS AND 05/13/2019 MARLA LOZA MD Ot D64.9 ANEMIA, UNSPECIFIED 05/13/2019 MARLA LOZA MD Ot E11.22 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 MELLITUS W DIABETIC HOME HELP AIDE 05/13/2019 MARLA LOZA MD Ot F41.9 ANXIETY DISORDER, UNSPECIFIED 05/13/2019 MARLA LOZA MD Ot I48.91 UNSPECIFIED ATRIAL FIBRILLATION 05/13/2019 MARLA LOZA MD Ot I50.9 HEART FAILURE, UNSPECIFIED 05/13/2019 MARLA LOZA MD Ot L03.116 CELLULITIS OF LEFT LOWER LIMB 05/13/2019 MARLA LOZA MD Ot M79.604 PAIN IN RIGHT LEG 05/13/2019 MARLA LOZA MD Ot N18.9 CHRONIC KIDNEY DISEASE, UNSPECIFIED 05/13/2019 MARLA LOZA MD Ot N39.0 URINARY TRACT INFECTION, SITE NOT SPECIF 05/13/2019 MARLA LOZA MD Ot Z79.01 TERRITORY SERVICE REPRESENTATIVE (CURRENT) USE OF ANTICOAGULANT 05/13/2019 MARLA LOZA MD Ot Z85.46 PERSONAL HISTORY OF MALIGNANT NEOPLASM O 05/13/2019 MARLA LOZA MD Ot Z87.891 PERSONAL HISTORY OF NICOTINE DEPENDENCE 05/13/2019 MARLA LOZA MD Ot Z90.49 ACQUIRED ABSENCE OF OTHER SPECIFIED PART 05/13/2019 MARLA LOZA MD Ot Z95.1 PRESENCE OF AORTOCORONARY BYPASS GRAFT 05/13/2019 BRUEGGEMANN MD, MARLA T Ot Z95.5 PRESENCE OF CORONARY ANGIOPLASTY IMPLANT 05/13/2019 DENIA MORGAN, MARLA T Ot Z99.2 DEPENDENCE ON RENAL DIALYSIS 05/14/2019 CAS LAI TYPING CHECKER Ot C6 1 MALIGNANT NEOPLASM OF PROSTATE 05/14/2019 CAS LAI TYPING CHECKER Ot I50.9 HEART FAILURE, UNSPECIFIED 05/14/2019 CAS LAI TYPING CHECKER Ot N1 9 UNSPECIFIED KIDNEY FAILURE 05/14/2019 CAS LAI TYPING CHECKER Ot S00.03XA CONTUSION OF SCALP, INITIAL ENCOUNTER 05/14/2019 CAS LAI TYPING CHECKER Ot W19.XXXA UNSPECIFIED FALL, INITIAL ENCOUNTER 05/14/2019 CAS LAI TYPING CHECKER Ot Z79.01 TERRITORY SERVICE REPRESENTATIVE (CURRENT) USE OF ANTICOAGULANT 05/14/2019 CAS LAI TYPING CHECKER Ot Z95.828 PRESENCE OF OTHER VASCULAR IMPLANTS AND 06/05/2019 CAS LAI TYPING CHECKER Ot C6 1 MALIGNANT NEOPLASM OF PROSTATE 06/05/2019 CAS LAI TYPING CHECKER Ot I50.9 HEART FAILURE, UNSPECIFIED 06/05/2019 CAS LAI TYPING CHECKER Ot N1 9 UNSPECIFIED KIDNEY FAILURE 06/05/2019 CAS LAI TYPING CHECKER Ot S00.03XA CONTUSION OF SCALP, INITIAL ENCOUNTER 06/05/2019 CAS LAI TYPING CHECKER Ot W19.XXXA UNSPECIFIED FALL, INITIAL ENCOUNTER 06/05/2019 CAS LAI TYPING CHECKER Ot Z79.01 TERRITORY SERVICE REPRESENTATIVE (CURRENT) USE OF ANTICOAGULANT 06/05/2019 CAS LAI TYPING CHECKER Ot Z95.828 PRESENCE OF OTHER VASCULAR IMPLANTS AND 06/11/2019 CAS LAI TYPING CHECKER Ot C6 1 MALIGNANT NEOPLASM OF PROSTATE 06/11/2019 CAS LAI TYPING CHECKER Ot I50.9 HEART FAILURE, UNSPECIFIED 06/11/2019 CAS LAI TYPING CHECKER Ot N1 9 UNSPECIFIED KIDNEY FAILURE 06/11/2019 CAS LAI TYPING CHECKER Ot S00.03XA CONTUSION OF SCALP, INITIAL ENCOUNTER 06/11/2019 CAS LAI TYPING CHECKER Ot W19.XXXA UNSPECIFIED FALL, INITIAL ENCOUNTER 06/11/2019 CAS LAI TYPING CHECKER Ot Z79.01 TERRITORY SERVICE REPRESENTATIVE (CURRENT) USE OF ANTICOAGULANT 06/11/2019 CAS LAI TYPING CHECKER Ot Z95.828 PRESENCE OF OTHER VASCULAR IMPLANTS AND 06/12/2019 CAS LAI TYPING CHECKER Ot D64.9 ANEMIA, UNSPECIFIED 06/12/2019 CAS LAI TYPING CHECKER Ot D64.9 ANEMIA, UNSPECIFIED 06/12/2019 CAS LAI TYPING CHECKER Ot D64.9 ANEMIA, UNSPECIFIED 06/12/2019 CAS LAI TYPING CHECKER Ot D64.9 ANEMIA, UNSPECIFIED 06/12/2019 CAS LAI TYPING CHECKER Ot D64.9 ANEMIA, UNSPECIFIED 06/12/2019 CAS LAI TYPING CHECKER Ot D64.9 ANEMIA, UNSPECIFIED 06/13/2019 CAS LAI TYPING CHECKER Ot D64.9 ANEMIA, UNSPECIFIED 06/13/2019 W C61 Prosta te cancer Ming Cas 06/13/2019 W G40.909 Ep ilepsy Ming 06/13/2019 W I48.11 Med gstanding persistent atrial fibrillation Ming Csa 06/13/2019 W I50.43 Acu te on chronic combined systolic and diastolic congestive heart failure Ming Cas 06/13/[address] asis edema with ulcer of right lower extremity Ming 06/13/[address] asis edema with ulcer of left lower extremity Ming, 06/13/2019 W M54.2 Neck pain Ming, Cas 06/13/2019 W N18.5 Stag e 5 chronic kidney disease not on chronic dialysis Ming Cas 06/13/2019 W R60.0 Loca lized edema Ming Cas 06/13/2019 W W19.XXXA Fall Ming Cas 06/13/2019 W Z78.9 Self -catheterizes urinary bladder Ming Cas 06/13/2019 W Z09 Hospit al discharge follow-up Ming Cas 06/15/2019 RASHMI BROUSSARD MD Ot B37.49 OTHER UROGENITAL CANDIDIASIS 06/15/2019 RASHMI BROUSSARD MD Ot B96.20 UNSP ESCHERICHIA COLI THE CAUSE OF DI 06/15/2019 RASHMI BROUSSARD MD Ot D6 2 ACUTE POSTHEMORRHAGIC ANEMIA 06/15/2019 RASHMI BROUSSARD MD Ot E11.40 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 MELLITUS WITH DIABETIC N 06/15/2019 RASHMI BROUSSARD MD Ot E78.00 PURE HYPERCHOLESTEROLEMIA, UNSPECIFIED 06/15/2019 AARTI MORGAN, RASHMI Uriostegui Ot G40.909 EPILEPSY, UNSP, NOT INTRACTABLE, WITHOUT 06/15/2019 AARTI MORGAN, RASHMI Uriostegui Ot I25.10 ATHSCL HEART DISEASE OF [place] CORONARY 06/15/2019 AARTI MORGAN, RASHMI Uriostegui Ot I48.91 UNSPECIFIED ATRIAL FIBRILLATION 06/15/2019 AARTI MORGAN, RASHMI Uriostegui Ot I50.9 HEART FAILURE, UNSPECIFIED 06/15/2019 AARTI MORGAN, RASHMI Uriostegui Ot I95.9 HYPOTENSION, UNSPECIFIED 06/15/2019 AARTI MORGAN, RASHMI Uriostegui Ot N32.9 BLADDER DISORDER, UNSPECIFIED 06/15/2019 AARTI MORGAN, RASHMI Uriostegui Ot N39.0 URINARY TRACT INFECTION, SITE NOT SPECIF 06/15/2019 AARTI MORGAN, RASHMI Uriostegui Ot R31.0 GROSS HEMATURIA 06/15/2019 AARTI MORGAN, RASHMI Uriostegui Ot Z85.46 PERSONAL HISTORY OF MALIGNANT NEOPLASM O 06/15/2019 RASHMI BROUSSARD MD Ot Z87.891 PERSONAL HISTORY OF NICOTINE DEPENDENCE 06/15/2019 AARTI MORGAN, RASHMI Uriostegui Ot Z90.49 ACQUIRED ABSENCE OF OTHER SPECIFIED PART 06/15/2019 AARTI MORGAN, RASHMI Uriostegui Ot Z95.1 PRESENCE OF AORTOCORONARY BYPASS GRAFT 06/15/2019 RASHMI BROUSSARD MD Ot Z95.5 PRESENCE OF CORONARY ANGIOPLASTY IMPLANT 06/16/2019 MARITO MORGAN, SANDRA Uriostegui Ot C61 MALIGNANT NEOPLASM OF PROSTATE 06/16/2019 MARITO MORGAN, SANDRA Uriostegui Ot N32.9 BLADDER DISORDER, UNSPECIFIED 06/16/2019 MARITO MORGAN, SANDRA A Ot C61 MALIGNANT NEOPLASM OF PROSTATE 06/16/2019 [...] chronic kidney disease not on chronic dialysis Aarti Rashmi 06/30/2019 JAKE DO, STEPHANIE K Ot E11.40 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 MELLITUS WITH DIABETIC N 06/30/2019 JAKE DO, STEPHANIE K Ot I50.9 HEART FAILURE, UNSPECIFIED 06/30/2019 JAKE DO, STEPHANIE K Ot R31.9 HEMATURIA, UNSPECIFIED 06/30/2019 JAKE DO, STEPHANIE K Ot R33.9 RETENTION OF URINE, UNSPECIFIED 06/30/2019 JAKE DO, STEPHANIE K Ot Z85.46 PERSONAL HISTORY OF MALIGNANT NEOPLASM O 06/30/2019 JAKE DO, STEPHANIE K Ot Z95.1 PRESENCE OF AORTOCORONARY BYPASS GRAFT 06/30/2019 JAKE DO, STEPHANIE K Ot Z95.5 PRESENCE OF CORONARY ANGIOPLASTY IMPLANT 07/01/2019 Ot D64.9 ANEM IA, UNSPECIFIED 07/04/2019 RASHMI BROUSSARD MD Ot D64.9 ANEMIA, UNSPECIFIED 07/04/2019 RASHMI BROUSSARD MD Ot E11.22 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 MELLITUS W DIABETIC HOME HELP AIDE 07/04/2019 RASHMI BROUSSARD MD Ot E11.42 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 MELLITUS WITH DIABETIC P 07/04/2019 RASHMI BROUSSARD MD Ot E78.00 PURE HYPERCHOLESTEROLEMIA, UNSPECIFIED 07/04/2019 RASHMI BROUSSARD MD Ot E87.6 HYPOKALEMIA 07/04/2019 RASHMI BROUSSARD MD Ot I13.0 HYP HRT CHR [place] DIS W HRT FAIL AND ST 07/04/2019 RASHMI BROUSSARD MD Ot I25.10 ATHSCL HEART DISEASE OF [place] CORONARY 07/04/2019 RASHMI BROUSSARD MD Ot I48.91 UNSPECIFIED ATRIAL FIBRILLATION 07/04/2019 RASHMI BROUSSARD MD, Ot I50.9 HEART FAILURE, UNSPECIFIED 07/04/2019 RASHMI BROUSSARD MD Ot N18.9 CHRONIC KIDNEY DISEASE, UNSPECIFIED 07/04/2019 RASHMI BROUSSARD MD Ot N39.0 URINARY TRACT INFECTION, SITE NOT SPECIF 07/04/2019 RASHMI BROUSSARD MD Ot R31.0 GROSS HEMATURIA 07/04/2019 RASHMI BROUSSARD MD Ot Z85.46 PERSONAL HISTORY OF MALIGNANT NEOPLASM O 07/04/2019 RASHMI BROUSSARD MD Ot Z87.891 PERSONAL HISTORY OF NICOTINE DEPENDENCE 07/04/2019 RASHMI BROUSSARD MD Ot Z92.3 PERSONAL HISTORY OF IRRADIATION 07/04/2019 RASHMI BROUSSARD MD Ot Z95.1 PRESENCE OF AORTOCORONARY BYPASS GRAFT 07/04/2019 RASHMI BROUSSARD MD Ot Z95.5 PRESENCE OF CORONARY ANGIOPLASTY IMPLANT 07/04/2019 RASHMI BROUSSARD MD Ot Z99.2 DEPENDENCE ON RENAL DIALYSIS 07/04/2019 SANDRA DEVI MD Ot C61 MALIGNANT NEOPLASM OF PROSTATE 07/04/2019 SANDRA DEVI MD Ot N32.9 BLADDER DISORDER, UNSPECIFIED 07/04/2019 RASHMI BROUSSARD MD Ot D64.9 ANEMIA, UNSPECIFIED 07/04/2019 RASHMI BROUSSARD MD Ot E11.22 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 MELLITUS W DIABETIC HOME HELP AIDE 07/04/2019 RASHMI BROUSSARD MD Ot E11.42 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 MELLITUS WITH DIABETIC P 07/04/2019 RASHMI BROUSSARD MD Ot E78.00 PURE HYPERCHOLESTEROLEMIA, UNSPECIFIED 07/04/2019 RASHMI BROUSSARD MD Ot E87.6 HYPOKALEMIA 07/04/2019 RASHMI BROUSSARD MD Ot I13.0 HYP HRT CHR [place] DIS W HRT FAIL AND ST 07/04/2019 RASHMI BROUSSARD MD Ot I25.10 ATHSCL HEART DISEASE OF [place] CORONARY 07/04/2019 RASHMI BROUSSARD MD Ot I48.91 UNSPECIFIED ATRIAL FIBRILLATION 07/04/2019 RASHMI BROUSSARD MD Ot I50.9 HEART FAILURE, UNSPECIFIED 07/04/2019 RASHMI BROUSSARD MD Ot N18.9 CHRONIC KIDNEY DISEASE, UNSPECIFIED 07/04/2019 RASHMI BROUSSARD MD Ot N39.0 URINARY TRACT INFECTION, SITE NOT SPECIF 07/04/2019 RASHMI BROUSSARD MD Ot R31.0 GROSS HEMATURIA 07/04/2019 RASHMI BROUSSARD MD Ot Z85.46 PERSONAL HISTORY OF MALIGNANT NEOPLASM O 07/04/2019 RASHMI BROUSSARD MD Ot Z87.891 PERSONAL HISTORY OF NICOTINE DEPENDENCE 07/04/2019 RASHMI BROUSSARD MD Ot Z92.3 PERSONAL HISTORY OF IRRADIATION 07/04/2019 RASHMI BROUSSARD MD Ot Z95.1 PRESENCE OF AORTOCORONARY BYPASS GRAFT 07/04/2019 RASHMI BROUSSARD MD Ot Z95.5 PRESENCE OF CORONARY ANGIOPLASTY IMPLANT 07/04/2019 RASHMI BROUSSARD MD Ot Z99.2 DEPENDENCE ON RENAL DIALYSIS 07/10/2019 W D50.0 Iron deficiency anemia due to chronic blood loss [facility] 07/10/2019 W I50.43 Acu te on chronic combined systolic and diastolic congestive heart failure [facility] 07/10/2019 W R53.1 Gene ralized weakness [facility] 07/10/2019 W R60.0 Loca lized edema [facility] 07/15/2019 SANDRA DEVI MD Ot R31.9 HEMATURIA, UNSPECIFIED 07/23/2019 Ot D64.9 ANEM IA, UNSPECIFIED 07/25/2019 W K43.9 Vent ral hernia without obstruction or gangrene Cas Lai 07/30/2019 W K43.9 Vent ral hernia without obstruction or gangrene Cas Lai 08/06/2019 CAS LAI APRN Ot C6 1 MALIGNANT NEOPLASM OF PROSTATE 08/06/2019 CAS LAI TYPING CHECKER Ot I50.9 HEART FAILURE, UNSPECIFIED 08/06/2019 CAS LAI TYPING CHECKER Ot N1 9 UNSPECIFIED KIDNEY FAILURE 08/06/2019 CAS LAI TYPING CHECKER Ot S00.03XA CONTUSION OF SCALP, INITIAL ENCOUNTER 08/06/2019 CAS LAI TYPING CHECKER Ot W19.XXXA UNSPECIFIED FALL, INITIAL ENCOUNTER 08/06/2019 CAS LAI APRN Ot Z79.01 TERRITORY SERVICE REPRESENTATIVE (CURRENT) USE OF ANTICOAGULANT 08/06/2019 CAS LAI TYPING CHECKER Ot Z95.828 PRESENCE OF OTHER VASCULAR IMPLANTS AND 08/06/2019 SNADRA DEVI MD Ot C61 MALIGNANT NEOPLASM OF PROSTATE 08/06/2019 SANDRA DEVI MD Ot N32.9 BLADDER DISORDER, UNSPECIFIED 08/06/2019 ZAHEER MIKE Ot Z01.89 ENCOUNTER FOR OTHER SPECIFIED SPECIAL EX 08/06/2019 SANDRA DEVI MD Ot R31.9 HEMATURIA, UNSPECIFIED 08/06/2019 Ot D64.9 ANEM IA, UNSPECIFIED 08/11/2019 W D50.0 Iron deficiency anemia due to chronic blood loss Aarti Rashmi 08/11/2019 W N18.5 Stag e 5 chronic kidney disease not on chronic dialysis Aarti Grayland 08/11/2019 W R53.1 Gene ralized weakness Aarti [place] 09/05/2019 ZAHEER MIKE Ot Z01.89 ENCOUNTER FOR OTHER SPECIFIED SPECIAL EX 09/17/2019 AGUSTÍN MCLEAN MD, Ot E78. 2 MIXED HYPERLIPIDEMIA 09/17/2019 AGUSTÍN MCLEAN MD Ot I11. 0 HYPERTENSIVE HEART DISEASE WITH HEART FA 09/17/2019 AGUSTÍN MCLEAN MD Ot I25. 3 ANEURYSM OF HEART 09/17/2019 AGUSTÍN MCLEAN MD Ot I48. 91 UNSPECIFIED ATRIAL FIBRILLATION 09/17/2019 AGUSTÍN MCLEAN MD Ot I50. 9 HEART FAILURE, UNSPECIFIED 09/17/2019 AGUSTÍN MCLEAN MD Ot I51. 89 OTHER ILL-DEFINED HEART DISEASES 09/17/2019 AGUSTÍN MCLEAN MD Ot Z95. 0 PRESENCE OF CARDIAC PACEMAKER 09/17/2019 AGUSTÍN MCLEAN MD Ot E78. 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 0 HYPERTENSIVE HEART DISEASE WITH HEART FA 09/17/2019 AGUSTÍN MCLEAN MD Ot I48. 0 PAROXYSMAL ATRIAL FIBRILLATION 09/17/2019 AGUSTÍN MCLEAN MD Ot I50. 42 CHRONIC COMBINED SYSTOLIC AND DIASTOLIC 09/17/2019 AGUSTÍN MCLEAN MD Ot Z95. 0 PRESENCE OF CARDIAC PACEMAKER 09/23/2019 W D50.0 Iron deficiency anemia due to chronic blood loss Aarti Rashmi 09/23/2019 W I48.11 Med gstanding persistent atrial fibrillation Aarti Rashmi 09/23/2019 W N18.5 Stag e 5 chronic kidney disease not on chronic dialysis Aarti Rashmi 09/23/2019 W R53.1 Gene ralized weakness Aarti [place] 09/23/2019 W Z51.81 Eduardo march for monitoring digoxin therapy Aarti Rashmi 09/23/2019 W Z79.899 Ot her emt intermediate (current) drug therapy Rashmi Broussard 10/23/2019 SANDRA DEVI MD Ot N31.9 NEUROMUSCULAR DYSFUNCTION OF BLADDER, UN 10/23/2019 SANDRA DEVI MD, Ot R33.9 RETENTION OF URINE, UNSPECIFIED 10/23/2019 SANDRA DEVI MD Ot Z01.8 12 ENCOUNTER FOR PREPROCEDURAL LABORATORY E 10/23/2019 SANDRA DEVI MD Ot Z20.8 28 CONTACT W AND EXPOSURE TO OTH VIRAL COMM 10/28/2019 CAS LAI TYPING CHECKER Ot C6 1 MALIGNANT NEOPLASM OF PROSTATE 10/28/2019 CAS LAI APRN Ot I50.9 HEART FAILURE, UNSPECIFIED 10/28/2019 CAS LAI APRN Ot N1 9 UNSPECIFIED KIDNEY FAILURE 10/28/2019 CAS LAI APRN Ot S00.03XA CONTUSION OF SCALP, INITIAL ENCOUNTER 10/28/2019 CAS LAI APRN Ot W19.XXXA UNSPECIFIED FALL, INITIAL ENCOUNTER 10/28/2019 CAS LAI APRN Ot Z79.01 JAIL (CURRENT) USE OF ANTICOAGULANT 10/28/2019 CAS LAI APRN Ot Z95.828 PRESENCE OF OTHER VASCULAR IMPLANTS AND 10/28/2019 SANDRA DEVI MD Ot C61 MALIGNANT NEOPLASM OF PROSTATE 10/28/2019 SANDRA DEVI MD Ot N32.9 BLADDER DISORDER, UNSPECIFIED 10/28/2019 ZAHEER MIKE Ot Z01.89 ENCOUNTER FOR OTHER SPECIFIED SPECIAL EX 10/28/2019 SANDRA DEVI MD Ot R31.9 HEMATURIA, UNSPECIFIED 10/28/2019 Ot D64.9 ANEM IA, UNSPECIFIED 10/28/2019 AGUSTÍN MCLEAN MD Ot E78. 2 MIXED HYPERLIPIDEMIA 10/28/2019 AGUSTÍN MCLEAN MD Ot I11. 0 HYPERTENSIVE HEART DISEASE WITH HEART FA 10/28/2019 AGUSTÍN MCLEAN MD Ot I25. 3 ANEURYSM OF HEART 10/28/2019 AGUSTÍN MCLEAN MD Ot I48. 91 UNSPECIFIED ATRIAL FIBRILLATION 10/28/2019 AGUSTÍN MCLEAN MD Ot I50. 9 HEART FAILURE, UNSPECIFIED 10/28/2019 AGUSTÍN MCLEAN MD Ot I51. 89 OTHER ILL-DEFINED HEART DISEASES 10/28/2019 AGUSTÍN MCLEAN MD, Ot Z95. 0 PRESENCE OF CARDIAC PACEMAKER 10/28/2019 AGUSTÍN MCLEAN MD, Ot E78. 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 0 HYPERTENSIVE HEART DISEASE WITH HEART FA 10/28/2019 AGUSTÍN MCLEAN MD, Ot I48. 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 0 PRESENCE OF CARDIAC PACEMAKER Procedures There is no data. Results Test Result Range BASIC MET PANEL - 01/24/17 10:40 GLUCOSE 126 MG/DL 65 - 110 BUN 30 MG/DL 7 - 21 CREATININE 1.3 mg/dl 0.7 - 1.5 BUN/CRE RATIO 23.1 7.0 - 25.0 SODIUM 144 MMOL/L 137 - 145 POTASSIUM 4.7 MMOL/L 3.6 - 5.0 CHLORIDE 105 MMOL/L 98 - 107 CO2 26 mmol/L 22 - 30 CALCIUM 10.1 MG/DL 8.4 - 10.2 AGE 76 YEARS NRG gfr 57 NRG eGFR 57 mL/min/BSA NRG Pathology Report - 01/07/18 13:00 . Comment . Comment . Comment . Comment . Comment: . Comment . Comment . Comment . Comment POC INR - 01/06/19 15:24 POC INR LAB NRG INR (POC) 2.6 2.0 - 3.0 SERIAL NO [id number] NRG QC acceptable YES NRG POC INR - 01/09/19 11:19 POC INR LAB NRG INR (POC) 3.1 2.0 - 3.0 SERIAL NO [id number] NRG QC acceptable YES NRG INR PPP - 01/16/19 13:43 PROTIME 93.1 SECS 9.4 - 12.5 INR 8.3 2.0 - 3.5 BY BP NRG VERIFIED BY READ BACK NRG CBCD (AUTO DIFF) - 01/16/19 14:57 WBC 7.7 x10 3UL 4.0 - 10.0 RBC 5.38 MIL/UL 4.50 - 6.00 HGB 11.4 g/dL 14.0 - 18.0 HCT 35.3 % 42.0 - 52.0 MCV 66 FL 80 - 100 MCH 21.2 PG 26.0 - 35.0 MCHC 32.3 % 28.0 - 37.3 RDW 17.0 %CV 10.5 - 14.5 PLATELETS 181 X10 3UL 150 - 400 NRBC 0 % 0 - 0 DIFFERENTIAL MANUAL D NRG SEGS % 78 % 36 - 66 BANDS % 3 % 0 - 8 LYMPHS % 9 % 18 - 40 MONOS % 9 % 1 - 8 EOSINOPHIL % 1 % 0 - 3 PLATELET ESTM ADEQUATE NRG MORPHOLOGY SEE BELOW NRG ANISOCYTOSIS SLIGHT NRG POIKILO SLIGHT NRG MICROCYTOSIS MARKED NRG HYPOCHROMASIA SLIGHT NRG TARGET CELLS FEW NRG COMP METAB PANEL - 01/16/19 14:57 GLUCOSE 164 MG/DL 65 - 110 BUN 17 MG/DL 7 - 21 CREATININE 1.3 mg/dl 0.7 - 1.5 BUN/CRE RATIO 13.1 7.0 - 25.0 SODIUM 137 MMOL/L 137 - 145 POTASSIUM 3.9 MMOL/L 3.6 - 5.0 CHLORIDE 95 MMOL/L 98 - 107 CO2 24 mmol/L 22 - 30 SGOT 24 U/L 14 - 50 SGPT 19 U/L 21 - 72 ALKALINE PHOS 99 U/L 20 - 155 TOTAL BILI 1.80 MG/DL 0.20 - 1.20 TOTAL PROTEIN 7.3 G/DL 6.3 - 8.2 ALBUMIN 4.5 G/DL 3.5 - 5.0 CALCIUM 9.6 MG/DL 8.4 - 10.2 AGE 78 YEARS NRG gfr 57 NRG eGFR 57 mL/min/BSA NRG TYPE AND SCREEN - 01/16/19 14:57 ABO RH A NRG ANTIBODY SCR NEGATIVE NR: NEGATIVE UA COMP CULT - 01/16/19 15:39 METHOD? Cath NRG URINE COLOR YELLOW NR:YELLOW TURBIDITY HAZY NR:CLEAR UR GLUCOSE NEGATIVE NR:NEGATIVE BILIRUBIN NEGATIVE NR:NEGATIVE KETONES NEGATIVE NR:NEGATIVE SPEC GRAVITY 1.010 1.005-1.015 BLOOD 2+ NR:NEGATIVE pH 6.0 5.0 - 8.0 PROTEIN TRACE NR:NEGATIVE UROBILINOGEN 1.0 <1.0 NITRITE NEGATIVE NR:NEGATIVE LEUK ESTERASE 2+ NR:NEGATIVE MICROSCOPIC PERFORMED NRG WBC/HPF 75-200 HPF 0-4 /HPF RBC/HPF 0-3 HPF 0-4 /HPF BACTERIA NEGATIVE NR: NEGATIVE MUCUS NEGATIVE NR: NEGATIVE EPI CELLS/LPF 3-10 NR: NONE SEEN AMORPHOUS NEGATIVE NRG REFLEX CULTURE? YES NRG POC INR - 01/20/19 13:45 POC INR LAB NRG INR (POC) 1.7 2.0 - 3.0 SERIAL NO [id number] NRG QC acceptable YES NRG PT/PTT - 01/23/19 16:15 PTT 31.1 SECS 25.1 - 36.5 PROTIME 17.9 SECS 9.4 - 12.5 INR 1.6 2.0 - 3.5 CBCD (AUTO DIFF) - 01/23/19 16:15 WBC 7.6 x10 3UL 4.0 - 10.0 RBC 5.51 MIL/UL 4.50 - 6.00 HGB 11.6 g/dL 14.0 - 18.0 HCT 36.5 % 42.0 - 52.0 MCV 66 FL 80 - 100 MCH 21.1 PG 26.0 - 35.0 MCHC 31.8 % 28.0 - 37.3 RDW 18.6 %CV 10.5 - 14.5 PLATELETS 240 X10 3UL 150 - 400 NRBC 1 % 0 - 0 DIFFERENTIAL MANUAL NRG SEGS % 80 % 36 - 66 BANDS % 2 % 0 - 8 LYMPHS % 10 % 18 - 40 MONOS % 7 % 1 - 8 EOSINOPHIL % 1 % 0 - 3 PLATELET ESTM ADEQUATE NRG ANISOCYTOSIS SLIGHT NRG POIKILO SLIGHT NRG MICROCYTOSIS SLIGHT NRG COMP METAB PANEL - 01/23/19 16:15 GLUCOSE 193 MG/DL 65 - 110 BUN 27 MG/DL 7 - 21 CREATININE 1.6 mg/dl 0.7 - 1.5 BUN/CRE RATIO 16.9 7.0 - 25.0 SODIUM 133 MMOL/L 137 - 145 POTASSIUM 4.9 MMOL/L 3.6 - 5.0 CHLORIDE 89 MMOL/L 98 - 107 CO2 24 mmol/L 22 - 30 SGOT 30 U/L 14 - 50 SGPT 23 U/L 0 - 49 ALKALINE PHOS 99 U/L 20 - 155 TOTAL BILI 2.00 MG/DL 0.20 - 1.20 TOTAL PROTEIN 7.2 G/DL 6.3 - 8.2 ALBUMIN 4.4 G/DL 3.5 - 5.0 CALCIUM 9.0 MG/DL 8.4 - 10.2 AGE 78 YEARS NRG gfr 45 NRG eGFR 45 mL/min/BSA NRG BNP (NT-proBNP) - 01/23/19 16:15 NT-proBNP 7870 pg/mL NRG TROPONIN I SERIAL X3 - 01/23/19 16:15 TROPONIN I 0.013 NG/ML 0.000 - 0.030 Hgb A1c Bld-mCnc - 01/23/19 16:15 HGB-A1C 5.9 % 4.7 - 6.4 eAG 123 mg/dL NRG TSH - 01/23/19 16:15 TSH 7.90 uIU/mL 0.50 - 4.68 UA COMP CULT - 01/23/19 18:07 METHOD? Void NRG URINE COLOR YELLOW NR:YELLOW TURBIDITY CLEAR NR:CLEAR UR GLUCOSE NEGATIVE NR:NEGATIVE BILIRUBIN NEGATIVE NR:NEGATIVE KETONES NEGATIVE NR:NEGATIVE SPEC GRAVITY 1.015 1.005-1.015 BLOOD 2+ NR:NEGATIVE pH 7.5 5.0 - 8.0 PROTEIN NEGATIVE NR:NEGATIVE UROBILINOGEN 1.0 <1.0 NITRITE NEGATIVE NR:NEGATIVE LEUK ESTERASE TRACE NR:NEGATIVE MICROSCOPIC PERFORMED NRG WBC/HPF 0-5 HPF 0-4 /HPF RBC/HPF 4-10 HPF 0-4 /HPF BACTERIA TRACE NR: NEGATIVE EPI CELLS/LPF 0-2 NR: NONE SEEN REFLEX CULTURE? NO NRG TROPONIN I SERIAL X3 - 01/23/19 22:18 TROPONIN I <0.012 NG/ML 0.000 - 0.030 BASIC MET PNL DAILY - 01/24/19 04:03 GLUCOSE 124 MG/DL 65 - 110 BUN 30 MG/DL 7 - 21 CREATININE 1.4 mg/dl 0.7 - 1.5 BUN/CRE RATIO 21.4 7.0 - 25.0 SODIUM 134 MMOL/L 137 - 145 POTASSIUM 4.2 MMOL/L 3.6 - 5.0 CHLORIDE 91 MMOL/L 98 - 107 CO2 27 mmol/L 22 - 30 CALCIUM 9.0 MG/DL 8.4 - 10.2 AGE 78 YEARS NRG gfr 52 NRG eGFR 52 mL/min/BSA NRG INR PPP - 01/24/19 04:03 PROTIME 19.0 SECS 9.4 - 12.5 INR 1.7 2.0 - 3.5 BNP (NT-proBNP), DAILY - 10/11/19 04:03 NT-proBNP 9210 pg/mL NRG TROPONIN I SERIAL X3 - 01/24/19 04:03 TROPONIN I <0.012 NG/ML 0.000 - 0.030 CBCD DAILY (W/AUTO DIFF) - 01/24/19 04:0 3 WBC 9.1 x10 3UL 4.0 - 10.0 RBC 5.45 MIL/UL 4.50 - 6.00 HGB 11.5 g/dL 14.0 - 18.0 HCT 35.8 % 42.0 - 52.0 MCV 66 FL 80 - 100 MCH 21.1 PG 26.0 - 35.0 MCHC 32.1 % 28.0 - 37.3 RDW 18.0 %CV 10.5 - 14.5 PLATELETS 228 X10 3UL 150 - 400 NRBC 0 % 0 - 0 DIFFERENTIAL MANUAL D NRG SEGS % 78 % 36 - 66 LYMPHS % 12 % 18 - 40 MONOS % 7 % 1 - 8 EOSINOPHIL % 3 % 0 - 3 PLATELET ESTM ADEQUATE NRG MORPHOLOGY SEE BELOW NRG MACROCYTOSIS SLIGHT NRG TARGET CELLS FEW NRG TROPONIN I - 01/24/19 08:11 TROPONIN I <0.012 NG/ML 0.000 - 0.030 COMP METAB PANEL - 03/24/19 10:05 GLUCOSE 115 MG/DL 65 - 110 BUN 95 MG/DL 7 - 21 CREATININE 4.7 mg/dl 0.7 - 1.5 BUN/CRE RATIO 20.2 7.0 - 25.0 SODIUM 130 MMOL/L 137 - 145 POTASSIUM 4.5 MMOL/L 3.6 - 5.0 CHLORIDE 92 MMOL/L 98 - 107 CO2 22 mmol/L 22 - 30 SGOT 34 U/L 14 - 50 SGPT 21 U/L 0 - 49 ALKALINE PHOS 125 U/L 20 - 155 TOTAL BILI 1.30 MG/DL 0.20 - 1.20 TOTAL PROTEIN 6.5 G/DL 6.3 - 8.2 ALBUMIN 3.6 G/DL 3.5 - 5.0 CALCIUM 9.1 MG/DL 8.4 - 10.2 AGE 78 YEARS NRG gfr 13 NRG eGFR 13 mL/min/BSA NRG TROPONIN I - 03/24/19 10:05 TROPONIN I 0.033 NG/ML 0.000 - 0.030 BNP (NT-proBNP), DAILY - 03/24/19 10:05 NT-proBNP 92714 pg/mL NRG CBCD (AUTO DIFF) - 03/24/19 10:05 WBC 4.8 x10 3UL 4.0 - 10.0 RBC 4.57 MIL/UL 4.50 - 6.00 HGB 10.0 g/dL 14.0 - 18.0 HCT 31.1 % 42.0 - 52.0 MCV 68 FL 80 - 100 MCH 21.9 PG 26.0 - 35.0 MCHC 32.2 % 28.0 - 37.3 RDW 18.7 %CV 10.5 - 14.5 PLATELETS 166 X10 3UL 150 - 400 NRBC 0 % 0 - 0 DIFFERENTIAL MANUAL DIFF NRG SEGS % 77 % 36 - 66 BANDS % 1 % 0 - 8 LYMPHS % 9 % 18 - 40 MONOS % 12 % 1 - 8 EOSINOPHIL % 1 % 0 - 3 PLATELET ESTM ADEQUATE NRG MORPHOLOGY SEE BELOW NRG ANISOCYTOSIS MODERATE NRG POIKILO SLIGHT NRG MICROCYTOSIS MARKED NRG TARGET CELLS FEW NRG OVALOCYTES FEW NRG BNP (NT-proBNP), DAILY - 03/24/19 10:05 NT-proBNP 64888 pg/mL NRG UA COMP CULT - 03/24/19 10:20 METHOD? Unspecified NRG URINE COLOR YELLOW NR:YELLOW TURBIDITY HAZY NR:CLEAR UR GLUCOSE NEGATIVE NR:NEGATIVE BILIRUBIN 1+ NR:NEGATIVE KETONES TRACE NR:NEGATIVE SPEC GRAVITY 1.020 1.005-1.015 BLOOD 3+ NR:NEGATIVE pH 5.0 5.0 - 8.0 PROTEIN 2+ NR:NEGATIVE UROBILINOGEN 1.0 <1.0 NITRITE NEGATIVE NR:NEGATIVE LEUK ESTERASE 3+ NR:NEGATIVE MICROSCOPIC PERFORMED NRG WBC/HPF 75-200 HPF 0-4 /HPF RBC/HPF 30-75 HPF 0-4 /HPF BACTERIA 2+ MOD NR: NEGATIVE MUCUS LIGHT NR: NEGATIVE EPI CELLS/LPF 0-2 NR: NONE SEEN REFLEX CULTURE? YES NRG POC GLUCOSE - 03/24/19 12:27 POCGLU 155 65 - 110 TROPONIN I SERIAL X3 - 03/24/19 16:00 TROPONIN I 0.028 NG/ML 0.000 - 0.030 POC GLUCOSE - 03/24/19 17:48 POCGLU 141 65 - 110 TROPONIN I SERIAL X3 - 03/24/19 22:15 TROPONIN I 0.025 NG/ML 0.000 - 0.030 COMP METAB PANEL DAILY - 03/25/19 06:10 GLUCOSE 122 MG/DL 65 - 110 BUN 104 MG/DL 7 - 21 CREATININE 5.0 mg/dl 0.7 - 1.5 BUN/CRE RATIO 20.8 7.0 - 25.0 SODIUM 132 MMOL/L 137 - 145 POTASSIUM 4.8 MMOL/L 3.6 - 5.0 CHLORIDE 96 MMOL/L 98 - 107 CO2 19 mmol/L 22 - 30 SGOT 33 U/L 14 - 50 SGPT 23 U/L 0 - 49 ALKALINE PHOS 122 U/L 20 - 155 TOTAL BILI 1.10 MG/DL 0.20 - 1.20 TOTAL PROTEIN 6.3 G/DL 6.3 - 8.2 ALBUMIN 3.6 G/DL 3.5 - 5.0 CALCIUM 9.2 MG/DL 8.4 - 10.2 AGE 78 YEARS NRG gfr 12 NRG eGFR 12 mL/min/BSA NRG BNP (NT-proBNP), DAILY - 03/25/19 06:10 NT-proBNP 59871 pg/mL NRG CBCD DAILY (W/AUTO DIFF) - 03/25/19 06:1 0 WBC 5.5 x10 3UL 4.0 - 10.0 RBC 4.62 MIL/UL 4.50 - 6.00 HGB 10.3 g/dL 14.0 - 18.0 HCT 31.6 % 42.0 - 52.0 MCV 68 FL 80 - 100 MCH 22.3 PG 26.0 - 35.0 MCHC 32.6 % 28.0 - 37.3 RDW 18.5 %CV 10.5 - 14.5 PLATELETS 143 X10 3UL 150 - 400 NRBC 0 % 0 - 0 DIFFERENTIAL MANUAL DIFF NRG SEGS % 80 % 36 - 66 BANDS % 2 % 0 - 8 LYMPHS % 7 % 18 - 40 MONOS % 11 % 1 - 8 PLATELET ESTM SL DECR NRG MORPHOLOGY SEE BELOW NRG ANISOCYTOSIS MODERATE NRG POIKILO MODERATE NRG MICROCYTOSIS MODERATE NRG TARGET CELLS FEW NRG OVALOCYTES FEW NRG POC GLUCOSE - 03/25/19 07:25 POCGLU 137 65 - 110 Complete blood count (CBC) with automate d [...] R NRG Whole blood hemoglobin and hematocrit [facility] 06/11/19 15:58 Venous blood hemoglobin measurement (mass/volume) 6.6 g/dL 13.3-17.7 Blood hematocrit (volume fraction) 21 % 40-54 RED CELLS LEUKO REDUCED AS1 - 06/11/19 1 5:58 RED CELLS LEUKO REDUCED AS1 T RANSFUSED 06/12/19 1141 NRG Blood type T Indirect antibody screen [facility] 06/11/19 15:58 WRISTBAND NUMBER [id number] NRG ABO+Rh group AN NRG Blood group antibody screen NEGATIVE NR G Whole blood hemoglobin and hematocrit [facility] 06/12/19 14:40 Venous blood hemoglobin measurement (mass/volume) 6.9 g/dL 13.3-17.7 Blood hematocrit (volume fraction) 21 % 40-54 Whole blood hemoglobin and hematocrit [facility] 06/12/19 15:02 Venous blood hemoglobin measurement (mass/volume) 7.5 g/dL 13.3-17.7 Blood hematocrit (volume fraction) 23 % 40-54 Whole blood hemoglobin and hematocrit [facility] 06/12/19 18:20 Venous blood hemoglobin measurement (mass/volume) 8.6 g/dL 13.3-17.7 Blood hematocrit (volume fraction) 26 % 40-54 Whole blood hemoglobin and hematocrit [facility] 06/13/19 11:45 Venous blood hemoglobin measurement (mass/volume) [...] pa harvinder - 06/14/19 18:19 WRISTBAND NUMBER [id number] NRG ABO+Rh group AN NRG Blood group [...] culture - 06/14/19 22:10 Bacterial urine culture [id number] NRG COLONY COUNT >100,000/ML NRG FREE TEXT [...] 70-110 Whole blood hemoglobin and hematocrit pa harivnder - 06/15/19 12:10 Venous blood hemoglobin measurement [...] plasma calcium measurement (mass/volume) 9.2 mg/dL 8.5-10.1 Bacterial urine culture - 07/03/19 05:14 Bacterial urine culture [id number] NRG COLONY COUNT 70,000 cfu/ml NRG Complete blood count (CBC) with automate [...] blood basophil count (count/volume) 0.0 10*3/uL 0.0-0.1 Blood type T Indirect antibody screen [facility] 07/03/19 06:52 WRISTBAND NUMBER [id number] NRG ABO+Rh group AN NRG Blood group antibody screen NEGATIVE NR G Whole blood hemoglobin and hematocrit [facility] 07/03/19 11:56 Venous blood hemoglobin measurement (mass/volume) 7.9 g/dL 13.3-17.7 Blood hematocrit (volume fraction) 26 % 40-54 Automated blood complete blood count (he mogram) panel - 07/04/19 04:20 Blood leukocytes automated count (number/volume) 3.7 10*3/uL 4.3-11.0 Blood erythrocytes automated count (number/volume) 3.40 10*6/uL 4.35-5.85 Venous blood hemoglobin measurement (mass/volume) 8.3 g/dL 13.3-17.7 Blood hematocrit (volume fraction) 27 % 40-54 Automated erythrocyte mean corpuscular volume 79 [ foz_us] 80-99 Automated erythrocyte mean corpuscular h emoglobin (mass per erythrocyte) 24 pg 25-34 Automated erythrocyte mean corpuscular h emoglobin concentration measurement (mass/volume) 31 g/dL 32-36 Automated erythrocyte distribution width ratio 17. 9 % 10.0- 14.5 Automated blood platelet count (count/volume) 233 10*3/uL 130-400 Automated blood platelet mean volume measurement 11.2 [foz_us] 7.4-10.4 Comprehensive metabolic panel - 07/04/19 04:20 Serum or plasma sodium measurement (moles/volume) 142 mmol/L 135-145 Serum or plasma potassium measurement (moles/volume) 3.9 mmol/L 3.6-5.0 Serum or plasma chloride measurement (moles/volume) 103 mmol/L 98-107 Carbon dioxide 26 mmol/L 21-32 Serum or plasma anion gap determination (moles/volume) 13 mmol/L 5-14 Serum or plasma urea nitrogen measurement (mass/volume ) 29 mg/dL 7-18 Serum or plasma creatinine measurement (mass/volume) 1.23 mg/dL 0.60-1.30 Serum or plasma urea nitrogen/creatinine mass ratio 24 NRG Serum or plasma creatinine measurement w ith calculation of estimated glomerular filtration rate 57 NRG Serum or plasma glucose measurement (mass/volume) 134 mg/dL 70-105 Serum or plasma calcium measurement (mass/volume) 9.0 mg/dL 8.5-10.1 Serum or plasma total bilirubin measurement (mass/volu me) 0.8 mg/dL 0.1-1.0 Serum or plasma alkaline phosphatase gauri surement (enzymatic activity/volume) 123 U/L 40-136 Serum or plasma aspartate aminotransfera se measurement (enzymatic activity/volume) 24 U/L 5-34 Serum or plasma alanine aminotransferase measurement (enzymatic activity/volume) 22 U/L 0-55 Serum or plasma protein measurement (mass/volume) 6.5 g/dL 6.4-8.2 Serum or plasma albumin measurement (mass/volume) 3.5 g/dL 3.2-4.5 CALCIUM CORRECTED 9.4 mg/dL 8.5-10.1 Magnesium - 07/04/19 04:20 Magnesium 1.9 mg/dL 1.6-2.4 Coronavirus SARS-CoV-2 SO 2018 - 0 08:15 Coronavirus Ab [Units/volume] in Serum Negative Negative Encounters ACCT No. Visit Date/Time Discharge Status Pt. Type Provider Facility Loc./Unit Complaint [id number] 02/27/2019 09:29:00 04/11/2019 10:12: 00 DIS Outpatient GARDNER JON Merino CHF [id number] 03/24/2019 08:58:00 03/25/2019 11:59: 00 DIS Inpatient DAYDAY JAQUEZ 00 7 ADMIT FOR CHF AFR [id number] 01/23/2019 17:30:00 01/24/2019 09:10: 00 DIS Inpatient DELORIS RAZA 007 HEART ISSUES [id number] 01/20/2019 13:06:00 01/20/2019 23:59: 59 CLS Outpatient ABRAHAM SANCHEZ [id number] 01/16/2019 13:24:00 01/16/2019 23:59: 59 CLS Outpatient ABRAHAM SANCHEZ [id number] 01/16/2019 13:58:00 01/16/2019 18:01: 00 DIS Emergency STEPHEN SEGUNDO N 014 ELEVATED INR, BLOOD IN URINE, BACK PAIN, [id number] 01/09/2019 08:24:35 01/09/2019 23:59: 59 CLS Outpatient ABRAHAM SANCHEZ [id number] 01/06/2019 09:50:00 01/06/2019 23:59: 59 CLS Outpatient ABRAHAM SANCHEZ [id number] 09/02/2018 17:01:00 09/02/2018 23:59: 59 CLS Outpatient LISANDRO VALDEZ [id number] [id number] 03/25/2018 10:21:00 03/25/2018 14:05: 00 DIS Outpatient LISANDRO VALDEZ 012 [id number] [id number] 01/07/2018 10:53:00 01/07/2018 13:35: 00 DIS Outpatient WILLIAM VALDEZY 012 [id number] 10/09/2017 07:36:00 10/09/2017 09:49: 00 DIS Outpatient TESSIE LOLI 01 2 [id number] 09/25/2017 11:42:00 09/25/2017 14:20: 00 DIS Outpatient LOLI KURTZ 01 2 [id number] 02/15/2017 13:20:26 02/15/2017 23:59: 59 CLS Outpatient CARI MORALES [id number] 01/29/2017 09:52:00 01/29/2017 23:59: 59 CLS Outpatient DEONTE RUIZ [id number] 01/24/2017 09:06:00 01/24/2017 23:59: 59 CLS Outpatient DEONTE RUIZ I10 [id number] 01/03/2017 14:07:00 01/03/2017 23:59: 59 CLS Outpatient LUZ MARINA DELORIS CAROLANN [id number] [id number] 10/09/2017 07:41:29 Document Registration [id number] 10/23/2019 05:33:00 13:47:00 DIS Outpatient MARITO MORGAN, SANDRA Uriostegui [facility] PREOP NEUROGENIC BLADDER [id number] 08/27/2019 08:46:00 23:59:59 CLS Outpatient AGUSTÍN MCLEAN MD [facility] CARD AF [id number] 08/25/2019 07:30:00 23:59:59 CLS Outpatient AGUSTÍN MCLEAN MD [facility] CARD AF [id number] 07/03/2019 07:00:00 11:50:00 DIS Inpatient AARTI MORGAN, RASHMI Uriostegui [facility] 4TH HEMATURIA,ANEMIA [id number] 06/30/2019 19:30:00 21:10:00 DIS Emergency STEPHANIE JOSEPH DO Vi [facility] ER HAD WALKER REMOVED TODAY ,BLEEDING [id number] 06/23/2019 15:47:00 23:59:59 CLS Outpatient MARITO MORGAN, SANDRA Uriostegui [facility] LAB [id number] 06/14/2019 19:43:00 15:35:00 DIS Inpatient AARTI MORGAN, RASHMI Uriostegui [facility] 4TH HEMATURIA [id number] 06/13/2019 11:22:00 23:59:59 CLS Outpatient ZAHEER MIKE [facility] LAB [id number] 06/13/2019 11:19:00 23:59:59 CLS Outpatient MARITO MORGAN, SANDRA Uriostegui [facility] CARD CA P [id number] 06/12/2019 08:00:00 21:00:00 DIS Outpatient CAS LAI APRN [facility] LAB ANEMIA [id number] 05/10/2019 09:49:00 14:56:00 DIS Emergency DENIA MORGAN, MARLA Bearden [facility] ER PAIN IN BOTH LE GS [id number] 05/08/2019 12:11:00 020 23:59:59 CLS Outpatient MING CASSHABANA Hansen APRN [facility] RAD FALL,EDEMA,ANTI-COAG [id number] 10/28/2019 06:00:[address] Outpatient MARITO MORGAN, SANDRA Uriostegui [facility] SDC NEUROGENIC BLADDER WITH RETE NTION [id number] 06/30/2019 20:49:00 Document Registration [id number] 05/02/2019 15:30:52 0 23:59:59 [facility] [id number] 02/13/2019 08:38:17 02/15/2019 23:59:5 9 DIS [id number] 12/05/2018 09:15:28 12/05/2018 23:59:5 9 CLS [facility] [id number] 09/02/2018 10:17:01 09/02/2018 23:59:5 9 CLS [facility] [id number] 11/05/2017 08:00:00 11/05/2017 23:59: 59 CLS Outpatient David Lawson [facility] [id number] 05/08/2019 09:39:12 05/08/2019 23:59:5 9 CLS Outpatient [id number] 01/11/2018 10:08:00 Document Registration [id number] 03/24/2019 08:49:00 Document Registration [id number] 01/23/2019 16:07:00 Document Registration [id number] 01/20/2019 13:06:00 Document Registration [id number] 01/16/2019 13:58:00 Document Registration [id number] 01/16/2019 13:24:00 Document Registration [id number] 01/09/2019 08:24:00 Document Registration [id number] 01/06/2019 09:50:00 Document Registration [id number] 01/24/2017 09:06:00 Document Registration
[2019-10-28] MEDS ORDERED: MIDAZOLAM 2 MG/2 ML (VERSED) VIAL ONE (06:45)
[2019-10-28] MEDS ORDERED: ONDANSETRON 4 MG/2 ML (SDV) Z0FRAN ONE (06:46)
[2019-10-28] MEDS ORDERED: proPOfol 200 MG/20 ML (DIPRIVAN) VIAL IV ONE (06:46)
[2019-10-28] MEDS ORDERED: fentaNYL INJECTION 100 MCG/2 ML AMP ONE (06:46)
[2019-10-28] MEDS ORDERED: LIDOCAINE PF 2% 5 ML (XYLOCAINE) VIAL ONE (06:46)
[2019-10-28] MEDS ORDERED: DEXAMETHASONE 10 MG/ML (DECADRON) 1 ML VIAL ONE (06:46)
[2019-10-28] MEDS ORDERED: SEVOFLURANE (ULTANE) 15 ML INHAL SOLN ONE (06:47)
[2019-10-28] MEDS ORDERED: LACTATED RINGERS 1,000 ML IV PRN (06:52)
--- NOTE | 2019-10-28 06:58 | Progress Note-Pre Operative ---
Pre-Operative Progress Note H&P Reviewed The H&P was reviewed, patient examined and no changes noted. Date Seen by Provider: Oct 28, 2019 Time Seen by Provider: 06:57 Date H&P Reviewed: Oct 28, 2019 Time H&P Reviewed: 06:57 Pre-Operative Diagnosis: NEUROGENIC BLADDER WITH RETENTION SANDRA DEVI MD Oct 28, 2019 06:58
--- NOTE | 2019-10-28 06:59 | Progress Note-Post Operative ---
Post-Operative Progess Note Surgeon (s)/Authorization Rep (s) Surgeon SANDRA DEVI MD Authorization Rep: ANNAMARIA HARDWICK D.O Pre-Operative Diagnosis NEUROGENIC BLADDER WITH RETENTION Post-Operative Diagnosis SAME Procedure & Operative Findings Date of Procedure 10/28/19 Procedure Performed/Findings SUPRAPUBIC CYSTOSTOMY TUBE PLACEMENT Anesthesia Type GENERAL Estimated Blood Loss Estimated blood loss (mL): NEGLIGIBLE Specimens/Packing Specimens Removed NONE Packing: NONE SANDRA DEVI MD Oct 28, 2019 06:59
[2019-10-28] MEDS ORDERED: cefTRIAXone FOR IV USE 1,000 MG in WATER (STERILE) FOR INJECTION 10 ML IV ONE (07:00)
--- NOTE | 2019-10-28 07:02 | Discharge Inst-Urology ---
Discharge Inst-Urology Reconcile Patient Problems Problems Reviewed?: Yes Final Diagnosis NEUROGENIC BLADDER WITH RETENTION Patient Instructions/Follow Up Plan/Assessment/Instructions Discharge with leg bag day time and large bag night time with instructions Please make appointment to been seen in office in 2 weeks, rest till then Keep bowels soft and moving Showers, no bath Increase oral fluids for 48 hours and then as needed. Diet as tolerated. If questions or concerns contact your physician Or seek help at emergency department. SANDRA DEVI MD Oct 28, 2019 07:02
[2019-10-28] MEDS ORDERED: GENTAMICIN 40 MG/ML 2 ML INJ SDV ONE (07:09)
[2019-10-28] MEDS ORDERED: LIDOCAINE 1% INJ 20 ML 20 ML VIAL ONE (07:10)
[2019-10-28 07:25] LABS: POTASSIUM 3.8 MMOL/L (3.6-5.0)
[2019-10-28 07:26] LABS: CALCIUM 9.8 MG/DL (8.5-10.1)
[2019-10-28 07:30] LABS: CREATININE SERUM 1.33 MG/DL (0.60-1.30)
[2019-10-28] MEDS ORDERED: NEOSTIGMINE 3 MG/3 ML VIAL ONE (08:04)
[2019-10-28] MEDS ORDERED: GLYCOPYRROLATE 0.2 MG/ML (ROBINUL) 2 ML VIAL ONE (08:04)
[2019-10-28] MEDS ORDERED: ROCURONIUM 10 MG/ML 5 ML SYRINGE IV ONE (08:04)
[2019-10-28] MEDS ORDERED: ONDANSETRON 4 MG/2 ML (SDV) Z0FRAN IVP PRN (08:30)
[2019-10-28] MEDS ORDERED: fentaNYL INJECTION 100 MCG/2 ML AMP IVP ONE (08:30)
--- NOTE | 2019-10-28 09:15 | OPERATIVE REPORT ---
DATE OF SERVICE: 10/28/2019 PREOPERATIVE DIAGNOSIS: Neurogenic bladder with retention. POSTOPERATIVE DIAGNOSIS: Neurogenic bladder with retention. OPERATION PERFORMED: Suprapubic tube placement. SURGEON: Bhupinder Devi MD CABLE INSTALLER REPAIRER: Mehrdad Dempsey DO. ANESTHESIA: General. COMPLICATIONS: None. DESCRIPTION OF PROCEDURE: Under satisfactory general anesthesia, the patient in supine position, genitalia, abdomen and thigh were prepped and draped in the usual sterile fashion. A lower midline incision was made just over the symphysis pubis for a couple 3 cm, carried through the skin, subcutaneous tissue and fascia. The fat over the bladder was clean and the bladder was identified and confirmed by a needle and syringe draining urine from it. I went ahead and made a stab incision into the bladder to insert a 22-Telugu two-way 5 mL balloon catheter draining clear urine. The balloon was inflated to 10 mL and held snugly against the anterior bladder wall. Closure was performed in two layers, first the fascia with interrupted 0 Vicryl and then the skin with delores. The suprapubic tube was secured in position with 0 silk suture. Estimated blood loss was negligible. Needle, sponge, instrument count correct x2. The patient tolerated the procedure and anesthesia well and was sent to recovery room in stable condition after securing the catheter and applying a dressing. Job ID: [id number] DocumentID: [id number] Dictated Date: 10/28/2019 08:13:36 Corporate Director Date: 10/28/2019 09:14:33 Dictated By: BHUPINDER DEVI MD
[2019-10-28] MEDS ORDERED: TRM50T PO (09:58)
[2019-10-28] MEDS ORDERED: CEPH-507 PO (09:58)
--- NOTE | 2019-10-28 15:06 | Anesthesia-General Post-Op ---
General Patient Condition Mental Status/LOC: Same as Preop Cardiovascular: Satisfactory Nausea/Vomiting: Absent Respiratory: Satisfactory Pain: Controlled Complications: Absent Post Op Complications Complications None Follow Up Care/Instructions Patient Instructions None needed. Anesthesia/Patient Condition Patient Condition Patient was seen this morning after the procedure and he was doing well, no complaints, stable vital signs, no apparent adverse anesthesia problems. ERICKA GUERIN DO Oct 28, 2019 15:06
== END 2019-10-28 10:30 | disposition home or self-care (01) ==
LOC: SDC 06:00
PROVIDERS: ATTEND Urology
DX: N31.9 Neuromuscular dysfunction of bladder, unspecified (principal); R33.9 Retention of urine, unspecified; I13.0 Hypertensive heart and chronic kidney disease with heart failure and stage 1 through stage 4 chronic kidney disease, or unspecified chronic kidney disease; E11.22 Type 2 diabetes mellitus with diabetic chronic kidney disease; I50.9 Heart failure, unspecified; N18.9 Chronic kidney disease, unspecified; D63.1 Anemia in chronic kidney disease; I48.91 Unspecified atrial fibrillation; E11.40 Type 2 diabetes mellitus with diabetic neuropathy, unspecified; E78.2 Mixed hyperlipidemia; I25.10 Atherosclerotic heart disease of native coronary artery without angina pectoris; K43.9 Ventral hernia without obstruction or gangrene; E03.9 Hypothyroidism, unspecified; Z79.82 Long term (current) use of aspirin; Z79.899 Other long term (current) drug therapy; Z87.891 Personal history of nicotine dependence; Z95.1 Presence of aortocoronary bypass graft; Z99.2 Dependence on renal dialysis
CPT/HCPCS: 36415; 80048; 87081

== ENCOUNTER → 2020-06-23 | Outpatient (CLI) | payer MEDICARE, BC ==
[~2020-06-23] MED LIST changes: -AMIO200T4 PO; +AMIO200T6 PO; +CEPH-507 PO; +TRM50T PO
--- NOTE | 2020-06-23 09:41 | Diagnostic Imaging Report ---
Indication: Fall with neck pain. Time of exam 8:33 AM AP, lateral, swimmer's as well as odontoid views of cervical spine were obtained. Alignment appears normal. Vertebral body heights are maintained. No fractures are seen. Odontoid appears intact. Prevertebral tissues are within normal limits. IMPRESSION: No acute bony abnormality is detected. Dictated by: Dictated on workstation # [id number]
== END ==
LOC: RAD 08:02
PROVIDERS: ATTEND Nurse Practitioner Family
DX: M54.2 Cervicalgia (principal); W19.XXXA Unspecified fall, initial encounter
CPT/HCPCS: 72040

== ENCOUNTER 2020-07-21 09:33 | Emergency (ER) | payer MEDICARE, BC ==
[~2020-07-21] VITALS: Ht 175 cm; Wt 58.0 kg
--- NOTE | 2020-07-21 10:00 | ED GU-Male ---
General Chief Complaint: Male Reproductive Stated Complaint: PAIN FROM CATHETER SITE Nursing Triage Note: PT AMB TO ROOM 6 PT CO OF PENILE PAIN, CO OF SEVERE PAIN 10/10 FROM PENIS FOR APPROX 8 HOURS. PT HAS SUPRA PUBIC CATH, PT STATE IS WORKING FINE Source: patient Exam Limitations: no limitations History of Present Illness Date Seen by Provider: Jul 21, 2020 Time Seen by Provider: 09:50 Initial Comments Patient is a 79-year-old male who presents to the emergency department today with a chief complaint of suprapubic catheter malfunction. Patient states that he has been having increasing pain in his groin and abdomen over the course of the last 9 hours. Patient was concerned that potentially a kidney stone was trying to pass through his urethra. Patient has a suprapubic catheter for neurogenic bladder. He states he has had just a little bit of urine through the catheter over the course of the last 9 hours. No other complaints of illness or injury. Timing/Duration: constant Severity/Quality: severe, aching Location: suprapubic Radiation: suprapubic Activities at Onset: eating Prior Genitourinary Problems: none Associated Symptoms: abdominal pain Allergies and Home Medications Allergies Coded Allergies: No Known Drug Allergies (Unverified , 06/30/19) Home Medications Acetaminophen 325 Mg Tablet, 650 MG PO Q8H PRN for PAIN-MILD (1-4), (Reported) Amiodarone HCl 200 Mg Tablet, 200 MG PO DAILY, (Reported) Bumetanide 2 Mg Tablet, 2 MG PO DAILY PRN for WEIGHT GAIN OF 3LBS, (Reported) Bumetanide 1 Mg Tablet, 2 MG PO DAILY, (Reported) TAKES 2 (1MG) TABS DAILY Cephalexin 500 Mg Capsule, 500 MG PO BID Prescribed by: SYMONE TRINIDAD on 10/28/19 0958 Ciprofloxacin HCl 500 Mg Tablet, 500 MG PO BID Prescribed by: ROMELIA MIR on 07/21/20 1047 Cyanocobalamin (Vitamin B-12) 2,500 Mcg Tablet, 2,500 MCG PO DAILY, (Reported) Digoxin 125 Mcg Tablet, 125 MCG PO MO,WE,FR, (Reported) Empagliflozin 10 Mg Tablet, 10 MG PO DAILY, (Reported) Levetiracetam 500 Mg Tablet, 500 MG PO BID, (Reported) Levothyroxine Sodium 25 Mcg Tablet, 25 MCG PO DAILY, (Reported) Midodrine HCl 10 Mg Tablet, 15 MG PO TID, (Reported) TAKES 1 & (10MG) TABS THREE TIMES A DAY Tramadol HCl 50 Mg Tablet, 1-2 TAB PO Q4H PRN for PAIN-MODERATE (5-7) Prescribed by: SYMONE TRINIDAD on 10/28/19 0958 Vit C/E/Zn/Coppr/Lutein/Zeaxan 1 Each Capsule, 1 EACH PO BID, (Reported) Patient Home Medication List Home Medication List Reviewed: Yes Review of Systems Review of Systems Constitutional: see HPI EENTM: no symptoms reported Respiratory: short of breath Cardiovascular: no symptoms reported Gastrointestinal: abdominal pain Genitourinary: pain Musculoskeletal: no symptoms reported Skin: no symptoms reported All Other Systemes Reviewed Negative Unless Noted: Yes Past Xiwkecx-Ljjndm-Npowio Hx Patient Social History Former Smoker, Quit: Apr 30, 1967 2nd Hand Smoke Exposure: No Recent Infectious Disease Expo: No Recent Hopitalizations: No Immunizations Up To Date Date of Pneumonia Vaccine: May 17, 2016 Date of Influenza Vaccine: Jan 14, 2019 Seasonal Allergies Seasonal Allergies: No Past Medical History Surgeries: Yes ( URETHRAL PROCEDURE-REPAIR OF URETHRA; ) Appendectomy, Cardiac, CABG, Coronary Stent, Dialysis, Gallbladder, Nose, P acemaker Respiratory: Yes (CHF) Currently Using CPAP: No Currently Using BIPAP: No Cardiac: Yes (CHF; CABG; CARDIAC STENTS, pacemaker) Atrial Fibrillation, Chronic Edema/Swelling, Coronary Artery Disease, High Cholesterol, Hypertension Neurological: Yes Neuropathy, Seizure Disorder Genitourinary: Yes (06/18/19 URETHRAL PROCEDURE WITH 2 WEEK WALKER;NO LONGER ON DIALYSIS) Prostate Problems, Renal Failure Gastrointestinal: No Musculoskeletal: No Endocrine: Yes Diabetes, Non-Insulin dep HEENT: No Cancer: Yes Prostate Did You Recieve Any Treatments: Yes What Type of Treatment Did You: Radiation Psychosocial: No Integumentary: No Blood Disorders: Yes (chronic anemia) Adverse Reaction/Blood Tranf: No Family Medical History No Pertinent Family Hx Physical Exam Vital Signs Vital Signs - First Documented 07/21/20 09:40 Temp 36.2 Pulse 93 Resp 20 B/P (MAP) 123/84 (97) Pulse Ox 97 Capillary Refill : Less Than 3 Seconds Height, Weight, BMI Height: '" Weight: lbs. oz. kg; 18.00 BMI Method: General Appearance: WD/WN, moderate distress Cardiovascular: regular rate, rhythm, systolic murmur Respiratory: normal breath sounds, no respiratory distress, no accessory muscle use Gastrointestinal: distended, tenderness (Suprapubic) Male: normal genitalia; No testicular tenderness Extremities: normal inspection, no pedal edema Neurologic/Psychiatric: alert, normal mood/affect, oriented x 3 Skin: normal color, warm/dry Progress/Results/Core Measures Suspected Sepsis Recent Fever Within 48 Hours: No Infection Criteria Present: Suspected New Infection New/Unexplained Altered Menta: No Sepsis Screen: No Definite Risk SIRS Temperature: Pulse: 93 Respiratory Rate: 20 Blood Pressure 123 /84 Mean: 97 Results/Orders Lab Results Laboratory Tests Test 07/21/20 09:56 Range/Units Urine Color YELLOW Urine Clarity CLOUDY Urine pH 8.5 5-9 Urine Specific [place] 1.015 L 1.016-1.022 Urine Protein 2+ H NEGATIVE Urine Glucose (UA) 2+ H NEGATIVE Urine Ketones NEGATIVE NEGATIVE Urine Nitrite NEGATIVE NEGATIVE Urine Bilirubin NEGATIVE NEGATIVE Urine Urobilinogen 0.2 < = 1.0 MG/DL Urine Leukocyte Esterase 2+ H NEGATIVE Urine RBC (Auto) 2+ H NEGATIVE Urine RBC 10-25 H /HPF Urine WBC 25-50 H /HPF Urine Crystals PRESENT H /LPF Urine Triple Phosphate Crystals MODERATE H /LPF Urine Bacteria LARGE H /HPF Urine Casts NONE /LPF Urine Mucus NEGATIVE /LPF Urine Culture Indicated YES My Orders Orders - ROMELIA MIR MD Ua Culture If Indicated (07/21/20 10:00) Urine Culture (07/21/20 09:56) Vital Signs/I&O 07/21/20 09:40 Temp 36.2 Pulse 93 Resp 20 B/P (MAP) 123/84 (97) Pulse Ox 97 Capillary Refill : Less Than 3 Seconds Blood Pressure Mean: 97 Departure Impression Primary Impression: Acute urinary retention Additional Impression: Urinary tract infection Qualified Codes: T83.510A - Infection and inflammatory reaction due to cystostomy catheter, initial encounter; N39.0 - Urinary tract infection, site not specified Disposition: HOME, SELF-CARE Condition: Stable Departure-Patient Inst. Decision time for Depature: 09:59 Referrals: RASHMI MURDOCK MD (PCP/Family) Primary Care Physician Patient Instructions: Urinary Tract Infection, Adult (DC) Add. Discharge Instructions: Drink plenty of fluids to stay well-hydrated. Take the antibiotics I have prescribed twice daily for the next week. Please follow-up with Dr. Escobar regarding your suprapubic catheter as scheduled. Scripts Ciprofloxacin HCl (Ciprofloxacin HCl) 500 Mg Tablet 500 MG PO BID, #14 TAB Prov: ROMELIA MIR MD 07/21/20 ROMELIA MIR MD Jul 21, 2020 09:59
[2020-07-21 10:06] LABS: BILIRUBIN,URINE NEGATIVE (NEGATIVE); CLARITY,URINE CLOUDY; COLOR,URINE YELLOW; GLUCOSE, URINE (UA) 2+ (NEGATIVE); KETONES,URINE NEGATIVE (NEGATIVE); LEUKOCYTE ESTERASE ,URINE 2+ (NEGATIVE); NITRITE,URINE NEGATIVE (NEGATIVE); PH,URINE 8.5 (5-9); PROTEIN,URINE 2+ (NEGATIVE)
[2020-07-21 10:30] LABS: BACTERIA,URINE LARGE /HPF; TRIPLE PHOSPHATE CRYSTAL,UR MODERATE /LPF; WBC,URINE 25-50 /HPF
[2020-07-21] MEDS ORDERED: CIPR500T5 PO (10:47)
[2020-07-21 11:08] VITALS: BP 120/67
== END 2020-07-21 11:23 | disposition home or self-care (01) ==
LOC: EDUNIT# 09:33 → ER 09:36
DX: R33.9 Retention of urine, unspecified (principal); N39.0 Urinary tract infection, site not specified; I48.91 Unspecified atrial fibrillation; I10 Essential (primary) hypertension; E11.9 Type 2 diabetes mellitus without complications; G40.919 Epilepsy, unspecified, intractable, without status epilepticus; Z95.5 Presence of coronary angioplasty implant and graft; Z95.0 Presence of cardiac pacemaker; Z85.46 Personal history of malignant neoplasm of prostate; Z87.891 Personal history of nicotine dependence; Z95.1 Presence of aortocoronary bypass graft
CPT/HCPCS: 51702; 81000; 87077; 87088; 87186

== ENCOUNTER → 2020-08-13 | Outpatient (CLI) | payer MEDICARE, BC ==
[~2020-08-13] MED LIST changes: +CIPR500T5 PO
--- NOTE | 2020-08-13 09:37 | Diagnostic Imaging Report ---
PA and lateral chest at 913h. INDICATION: Dyspnea The cardiomegaly, the sternotomy wires and surgical clips and a left-sided defibrillator device seen on the prior exam of 05/10/2019 are again evident and not significantly changed. However the central pulmonary vascularity and interstitial densities in both lungs are less prominent than on the prior exam. Even so, there may still be an element of early/mild pulmonary congestion present. Clinical follow-up is recommended. There is no confluent pneumonia identified nor is there any evidence for a pleural effusion. The mediastinum is not widened. The osseous structures are intact. IMPRESSION: There is cardiomegaly and evidence of prior cardiac surgery and perhaps mild central pulmonary congestion. Clinical follow-up is recommended. Dictated by: Dictated on workstation # [id number]
== END ==
LOC: RAD 08:59
PROVIDERS: ATTEND Nurse Practitioner Family
DX: I51.7 Cardiomegaly (principal)
CPT/HCPCS: 71046

== ENCOUNTER 2020-08-14 23:40 | Emergency (ER) | payer MEDICARE, BC ==
[~2020-08-14] VITALS: Ht 175.3 cm; Wt 61.7 kg
--- NOTE | 2020-08-15 00:17 | ED General ---
General Stated Complaint: RETAINING FLUID,LEGS SWELLING Source of Information: Patient, Family Exam Limitations: No Limitations History of Present Illness Date Seen by Provider: August 15, 2020 Time Seen by Provider: 00:05 Initial Comments Patient is a 79-year-old male who presents to the emergency department today with a chief complaint of swelling to his left leg. Patient states that he has had increasing swelling over the course of the last day or 2. He has had decreasing amounts of urinary output. Patient states that he has a chronic indwelling Walker catheter from neurogenic bladder. He states he has gained about 5 pounds in the last 24 hours of fluid. Patient has a history of congestive heart failure and chronic kidney disease. He was recently increased on his Bumex from 1 twice a day to 2 mg twice a day. He states he took his 2 mg today but has not had much urine output at all. He complains of significant pain related to the swelling so much so that he was unable to get any sleep at all last night. He denies any fevers, chills or chest pain. He recently saw his primary care physician, Dr. Broussard and had a chest x-ray done and was told that he had a little bit of fluid in his chest. He is not short of breath. His analysis specialist is Dr. Mclaughlin at [facility] in [place]. All other review of systems reviewed and negative except as stated above. Timing/Duration: 1-2 Days Severity: Moderate Allergies and Home Medications Allergies Coded Allergies: No Known Drug Allergies (Unverified , 06/30/19) Home Medications Acetaminophen 325 Mg Tablet, 650 MG PO Q8H PRN for PAIN-MILD (1-4), (Reported) Amiodarone HCl 200 Mg Tablet, 200 MG PO DAILY, (Reported) Bumetanide 2 Mg Tablet, 2 MG PO DAILY PRN for WEIGHT GAIN OF 3LBS, (Reported) Bumetanide 1 Mg Tablet, 2 MG PO DAILY, (Reported) TAKES 2 (1MG) TABS DAILY Cephalexin 500 Mg Capsule, 500 MG PO BID Prescribed by: SYMONE TRINIDAD on 10/28/19 0940 Ciprofloxacin HCl 500 Mg Tablet, 500 MG PO BID Prescribed by: ROMELIA MIR on 07/21/20 1047 Cyanocobalamin (Vitamin B-12) 2,500 Mcg Tablet, 2,500 MCG PO DAILY, (Reported) Digoxin 125 Mcg Tablet, 125 MCG PO MO,WE,FR, (Reported) Empagliflozin 10 Mg Tablet, 10 MG PO DAILY, (Reported) Levetiracetam 500 Mg Tablet, 500 MG PO BID, (Reported) Levothyroxine Sodium 25 Mcg Tablet, 25 MCG PO DAILY, (Reported) Midodrine HCl 10 Mg Tablet, 15 MG PO TID, (Reported) TAKES 1 & (10MG) TABS THREE TIMES A DAY Tramadol HCl 50 Mg Tablet, 1-2 TAB PO Q4H PRN for PAIN-MODERATE (5-7) Prescribed by: SYMONE TRINIDAD on 10/28/19 0958 Vit C/E/Zn/Coppr/Lutein/Zeaxan 1 Each Capsule, 1 EACH PO BID, (Reported) Patient Home Medication List Home Medication List Reviewed: Yes Review of Systems Review of Systems Constitutional: see HPI EENTM: no symptoms reported Respiratory: no symptoms reported Cardiovascular: no symptoms reported Gastrointestinal: no symptoms reported Genitourinary: decreased output Musculoskeletal: other (left leg swelling and pain) Skin: no symptoms reported Psychiatric/Neurological: Anxiety (over not being able to sleep) All Other Systems Reviewed Negative Unless Noted: Yes Past Wkgjjvf-Mlerdb-Yttthj Hx Patient Social History Former Smoker, Quit: Apr 30, 1967 2nd Hand Smoke Exposure: No Recent Hopitalizations: No Immunizations Up To Date Date of Pneumonia Vaccine: May 17, 2016 Date of Influenza Vaccine: Jan 14, 2019 Seasonal Allergies Seasonal Allergies: No Past Medical History Surgeries: Yes ( URETHRAL PROCEDURE-REPAIR OF URETHRA; ) Appendectomy, Cardiac, CABG, Coronary Stent, Dialysis, Gallbladder, Nose, Pacemaker Respiratory: Yes (CHF) Currently Using CPAP: No Currently Using BIPAP: No Cardiac: Yes (CHF; CABG; CARDIAC STENTS, pacemaker) Atrial Fibrillation, Chronic Edema/Swelling, Coronary Artery Disease, High Cholesterol, Hypertension Neurological: Yes Neuropathy, Seizure Disorder Genitourinary: Yes (06/18/19 URETHRAL PROCEDURE WITH 2 WEEK WALKER;NO LONGER ON DIALYSIS) Prostate Problems, Renal Failure Gastrointestinal: No Musculoskeletal: No Endocrine: Yes Diabetes, Non-Insulin dep HEENT: No Cancer: Yes Prostate Did You Recieve Any Treatments: Yes What Type of Treatment Did You: Radiation Psychosocial: No Integumentary: No Blood Disorders: Yes (chronic anemia) Adverse Reaction/Blood Tranf: No Family Medical History No Pertinent Family Hx Physical Exam Vital Signs Vital Signs - First Documented 08/14/20 23:50 Temp 36.2 Pulse 80 Resp 18 B/P (MAP) 97/87 (90) Pulse Ox 99 O2 Delivery Room Air Capillary Refill : Height, Weight, BMI Height: '" Weight: lbs. oz. kg; 18.00 BMI Method: General Appearance: No Apparent Distress, WD/WN Eyes: Bilateral Eye Normal Inspection Neck: Normal Inspection Respiratory: Lungs Clear, Normal Breath Sounds, No Accessory Muscle Use, No Respiratory Distress Cardiovascular: Regular Rate, Rhythm, Systolic Murmur Gastrointestinal: Non Tender, Soft Extremity: Normal Capillary Refill, Pedal Edema (left greater than right), Swelling Neurologic/Psychiatric: Alert, Oriented x3, No Motor/Sensory Deficits, Normal Mood/Affect Skin: Normal Color, Warm/Dry Progress/Results/Core Measures Suspected Sepsis SIRS Temperature: Pulse: Respiratory Rate: Laboratory Tests 08/15/20 00:08: White Blood Count 4.3 Blood Pressure / Mean: Laboratory Tests 08/15/20 00:08: Creatinine 1.75H, Platelet Count 214 Results/Orders Lab Results Laboratory Tests Test 08/15/20 00:08 08/15/20 00:15 Range/Units White Blood Count 4.3 4.3-11.0 10^3/uL Red Blood Count 4.97 4.30-5.52 10^6/uL Hemoglobin 10.3 L 13.3-17.7 g/dL Hematocrit 32 L 40-54 % Mean Corpuscular Volume 65 L 80-99 fL Mean Corpuscular Hemoglobin 21 L 25-34 pg Mean Corpuscular Hemoglobin Concent 32 32-36 g/dL Red Cell Distribution Width 16.8 H 10.0-14.5 % Platelet Count 214 130-400 10^3/uL Mean Platelet Volume 10.9 9.0-12.2 fL Immature Granulocyte % (Auto) 1 % Neutrophils (%) (Auto) 73 42-75 % Lymphocytes (%) (Auto) 12 12-44 % Monocytes (%) (Auto) 13 H 0-12 % Eosinophils (%) (Auto) 1 0-10 % Basophils (%) (Auto) 1 0-10 % Neutrophils # (Auto) 3.2 1.8-7.8 10^3/uL Lymphocytes # (Auto) 0.5 L 1.0-4.0 10^3/uL Monocytes # (Auto) 0.5 0.0-1.0 10^3/uL Eosinophils # (Auto) 0.1 0.0-0.3 10^3/uL Basophils # (Auto) 0.0 0.0-0.1 10^3/uL Immature Granulocyte # (Auto) 0.0 0.0-0.1 10^3/uL Sodium Level 132 L 135-145 MMOL/L Potassium Level 3.6 3.6-5.0 MMOL/L Chloride Level 86 L 98-107 MMOL/L Carbon Dioxide Level 30 21-32 MMOL/L Anion Gap 16 H 5-14 MMOL/L Blood Urea Nitrogen 27 H 7-18 MG/DL Creatinine 1.75 H 0.60-1.30 MG/DL Estimat Glomerular Filtration Rate 38 BUN/Creatinine Ratio 15 Glucose Level 106 H 70-105 MG/DL Calcium Level 10.0 8.5-10.1 MG/DL Urine Color YELLOW Urine Clarity CLEAR Urine pH 5.5 5-9 Urine Specific [place] 1.010 L 1.016-1.022 Urine Protein NEGATIVE NEGATIVE Urine Glucose (UA) 1+ H NEGATIVE Urine Ketones NEGATIVE NEGATIVE Urine Nitrite NEGATIVE NEGATIVE Urine Bilirubin NEGATIVE NEGATIVE Urine Urobilinogen 0.2 < = 1.0 MG/DL Urine Leukocyte Esterase 2+ H NEGATIVE Urine RBC (Auto) 1+ H NEGATIVE Urine RBC 2-5 H /HPF Urine WBC 25-50 H /HPF Urine Crystals NONE /LPF Urine Bacteria FEW H /HPF Urine Casts NONE /LPF Urine Mucus NEGATIVE /LPF Urine Culture Indicated YES My Orders Orders - ROMELIA MIR MD Ed Iv/Invasive Line Start (08/15/20 00:11) Cbc With Automated Diff (08/15/20 00:11) Basic Metabolic Panel (08/15/20 00:11) Ua Culture If Indicated (08/15/20 00:11) Tramadol Tablet (Ultram Tablet) (08/15/20 00:15) Tramadol Tablet (Ultram Tablet) (08/15/20 00:14) Urine Culture (08/15/20 00:15) Furosemide Injection (Lasix Injection) (08/15/20 00:45) Medications Given in ED Current Medications Medications Dose Ordered Sig/Danielle Route Start Time Stop Time Status Last Admin Dose Admin Furosemide 40 mg ONCE ONCE IVP 08/15/20 00:45 08/15/20 00:46 DC 08/15/20 00:42 40 MG Tramadol HCl 50 mg ONCE ONCE PO 08/15/20 00:15 08/15/20 00:16 DC 08/15/20 00:22 50 MG Vital Signs/I&O 08/14/20 23:50 Temp 36.2 Pulse 80 Resp 18 B/P (MAP) 97/87 (90) Pulse Ox 99 O2 Delivery Room Air Capillary Refill : Progress Note : Time: 01:20 Progress Note Patient has started producing some urine after 40 mg of IV Lasix. His creatinine at 1.75 is at his baseline which was done by Dr. Mclaughlin about 1 month ago on 07-12-20. It was 1.7 at that time. So no significant decrease in renal function. Patient will take his extra 2 mg Bumex again tomorrow. He has a follow-up appointment at 8:[address] Devi on Sunday. I have instructed him to follow-up with Dr. Mclaughlin as well regarding his retention of fluid. The tramadol has helped him a little bit. We will send him home with a take-home pack of hydrocodone this evening and refill his tramadol for home use. Patient is comfortable with this plan of care. All questions have been sought and answered. Patient is ready for discharge. Departure Impression Primary Impression: Leg pain, left Additional Impression: Pain and swelling of left lower extremity Disposition: HOME, SELF-CARE Condition: Stable Departure-Patient Inst. Decision time for Depature: :22 Referrals: RASHMI BROUSSARD MD (PCP/Family) Primary Care Physician Patient Instructions: Dependent Edema (DC) Add. Discharge Instructions: Continue your Bumex daily as prescribed. Take the extra 2 mg tomorrow as well. I have given you a hydrocodone take-home pack this evening. Take 1 of these tablets when you get home tonight to help rest this evening. Follow-up with Dr. Oneill on Sunday as scheduled. Call Dr. Mclaughlin's office on Sunday as well to let him know that you are continuing to hold onto fluid. Return to the emergency room for any new, concerning or emergent complaints. Scripts Tramadol HCl (Tramadol HCl) 50 Mg Tablet 50 MG PO Q6H PRN for PAIN, #30 TAB 0 Refills Prov: ROMELIA MIR MD 08/15/20 Copy Copies To 1: RASHMI BROUSSARD MD Copies To 2: SANDRA DEVI MD, KATHRYN M MD August 15, 2020 00:17
[2020-08-15 00:20] LABS: BASOPHILS % (AUTO) 1 % (0-10); EOSINOPHILS # (AUTO) 0.1 10^3/uL (0.0-0.3); EOSINOPHILS % (AUTO) 1 % (0-10); HEMATOCRIT 32 % (40-54); HEMOGLOBIN 10.3 g/dL (13.3-17.7); LYMPHOCYTES # (AUTO) 0.5 10^3/uL (1.0-4.0); LYMPHOCYTES % (AUTO) 12 % (12-44); MEAN CORPUSCULAR HEMOGLOBIN 21 pg (25-34); MEAN CORPUSCULAR HGB CONC 32 g/dL (32-36); MEAN CORPUSCULAR VOLUME 65 fL (80-99); MEAN PLATELET VOLUME 10.9 fL (9.0-12.2); MONOCYTES # (AUTO) 0.5 10^3/uL (0.0-1.0); MONOCYTES % (AUTO) 13 % (0-12); NEUTROPHILS # (AUTO) 3.2 10^3/uL (1.8-7.8); NEUTROPHILS % (AUTO) 73 % (42-75); PLATELET COUNT 214 10^3/uL (130-400); WHITE BLOOD COUNT 4.3 10^3/uL (4.3-11.0)
[2020-08-15 00:20] LABS: BILIRUBIN,URINE NEGATIVE (NEGATIVE); CLARITY,URINE CLEAR; COLOR,URINE YELLOW; GLUCOSE, URINE (UA) 1+ (NEGATIVE); KETONES,URINE NEGATIVE (NEGATIVE); LEUKOCYTE ESTERASE ,URINE 2+ (NEGATIVE); NITRITE,URINE NEGATIVE (NEGATIVE); PH,URINE 5.5 (5-9); PROTEIN,URINE NEGATIVE (NEGATIVE)
[2020-08-15 00:26] LABS: POTASSIUM 3.6 MMOL/L (3.6-5.0)
[2020-08-15 00:29] LABS: BACTERIA,URINE FEW /HPF; WBC,URINE 25-50 /HPF
[2020-08-15 00:31] LABS: CREATININE SERUM 1.75 MG/DL (0.60-1.30)
[2020-08-15] MEDS ORDERED: FUROSEMIDE 40 MG/4 ML INJ (LASIX) IVP ONE (00:45)
[2020-08-15] MEDS ORDERED: TRM50T PO (01:24)
[2020-08-15 01:36] VITALS: BP 112/73
== END 2020-08-15 01:36 | disposition home or self-care (01) ==
LOC: EDUNIT# 23:40 → ER 23:41
DX: M79.605 Pain in left leg (principal); M79.89 Other specified soft tissue disorders; I11.0 Hypertensive heart disease with heart failure; I50.9 Heart failure, unspecified; I48.91 Unspecified atrial fibrillation; E11.9 Type 2 diabetes mellitus without complications; G40.909 Epilepsy, unspecified, not intractable, without status epilepticus
CPT/HCPCS: 36415; 80048; 81000; 85025; 87077; 87088

== ENCOUNTER → 2020-11-18 | Outpatient (CLI) | payer MEDICARE, BC ==
--- NOTE | 2020-11-18 10:09 | Diagnostic Imaging Report ---
INDICATION: Injury with pain. 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 There are extensive atherosclerotic vascular calcifications present. There is a mild blunted plantar calcaneal spur of well less than 1 cm. No fracture or acute periosteal reaction. No bony destruction. IMPRESSION: Arthritic changes and vascular calcifications. No fracture is identified. Dictated by: Dictated on workstation # [id number]
== END ==
LOC: RAD 08:25
PROVIDERS: ATTEND Family Medicine
DX: M19.071 Primary osteoarthritis, right ankle and foot (principal); M25.871 Other specified joint disorders, right ankle and foot
CPT/HCPCS: 73630